=== PATIENT | male | born 1950 | race Caucasian/White ===

== ENCOUNTER 2016-10-01 11:02 | Emergency (ER) | payer OTHER ==
[2016-10-01 11:38] VITALS: BP 183/97; PULSE 93; RESP 16; TEMP 98.1; O2SAT 95
--- NOTE | 2016-10-01 11:44 | UCPHY ---
H & P Time Seen by Provider: 10/01/16 11:15 Patient Type: Established HPI/ROS: HPI Left knee pain. 65-year-old male by private vehicle. This patient reports that he was coming down a ladder last Wednesday after cleaning his gutters. He got to the bottom. He flexed his left knee and had a sudden onset burning sharp pain on the lateral aspect of the left knee just adjacent to the patella. He reports that he has had this pain once before 20 years ago. He has had multiple surgeries on the left knee secondary to chronic problems. He cannot give me further details on the surgeries. He has a chronic left knee swelling and deformity from these complications. He reports that he has had continued pain to the lateral aspect of the left knee adjacent to the patella that is made significantly worse and exacerbated by flexion of the knee past 70-80 degrees. No other injury or complaint. ROS: Constitutional: No fever, no chills. No weakness. Musculoskeletal: As above. Skin: No rashes. No lacerations or abrasions. Neurological: No focal weakness or altered sensation. Past medical history: As above. Renal failure on dialysis Wednesdays and Fridays. Social history: Here by himself. Nonsmoker. Physical Exam: General Appearance: Alert, no distress. This patient is responding to questions appropriately and in full sentences. This patient appears well- hydrated and well-nourished. Eyes: Pupils equal and round no pallor or injection. No lid edema, erythema or injection. Left knee examination: Significant for a medial aspect swelling deformity which is chronic. There does not appear to be in acute effusion. He has got some mild tenderness on palpation left lateral joint line, just inferior to the patella. No soft tissue focal swelling, erythema or warmth noted. The knee joint does range in flexion and extension. His pain comes on with flexion greater than 70-80 degrees. The knee joint is otherwise stable to valgus and varus stress testing and posterior/anterior drawer testing. The left lower extremity is neurovascularly intact. Neurological: Motor sensory function is grossly intact. Cranial nerves are normal. Skin: Warm and dry, no rashes. Psychiatric: No agitation. No depression. Database: EKG: Imaging: Left knee x-ray series: Osteopenia, marked chronic degenerative changes, osteoarthritis. No acute fracture, subluxation, dislocation identified. Interpreted by me. Procedures: Emergency department course: Vital signs reviewed. Patient is hypertensive. Vital signs are otherwise within normal limits. Patient sent for x-ray imaging of the left knee. 12:05 p.m., patient re-evaluated. Resting comfortably at this time. Results of his x-rays were discussed with him. Plan will be to place him in a knee immobilizer brace and I will refer him to Orthopedics for re-evaluation and further management. He needs a left knee replacement. He is in agreement with this plan. Follow-up and return to emergency department precautions have been discussed with him. All of his questions were answered. He was discharged from the urgent care in good condition. Differential Diagnosis: The differential diagnosis on this patient includes but is not limited to osteoarthritis of the left knee. Septic arthritis, acute fracture, subluxation , dislocation unlikely. This represents a partial list of diagnoses considered. These considerations are based on history, physical exam, past history, reassessment and diagnostic testing. Smoking Status: Never smoked Constitutional: Initial Vital Signs Temperature (C) 36.7 C 10/01/16 11:31 Heart Rate 93 10/01/16 11:31 Respiratory Rate 16 10/01/16 11:31 Blood Pressure 183/97 H 10/01/16 11:31 O2 Sat (%) 95 10/01/16 11:31 O2 Delivery Mode Room Air Allergies/Adverse Reactions: No Known Allergies Allergy (Unverified 10/01/16 11:38) Home Medications: Medication Instructions Recorded Amlodipine Besylate 10/01/16 Fosrenol 10/01/16 IBUPROFEN 10/01/16 Sensipar (*) 10/01/16 Departure - Departure Disposition: Home, Routine, Self-Care Clinical Impression: Osteoarthritis of left knee, Left knee injury Condition: Good Instructions: Swollen Knee Joint (ED), Knee Immobilizer (ED) Additional Instructions: Read and follow provided instructions. Follow-up with Orthopedics within 2-3 days for re-evaluation and further management of left knee injury. Use brace when ambulating. Weight bear to the left knee only as tolerated. Return to the emergency department for worsening pain, swelling, discoloration, fever or other serious concerns. Referrals: Judson Kinney MD [Primary Care Provider] - As per Instructions Sean Heath MD [Medical Doctor] - As per Instructions - PQRS PQRS Measurement: 134: Depression screening and followup, PRIME MD-PHQ2 (12 years and older) Over the last 2 weeks, how often have you been bothered by any of the following problems? 1. Feeling down, depressed, or hopeless? 2. Little interest or pleasure in doing things? Answered no to both questions. 130: Documentation of medications. Reviewed all patient medications, doses, route and frequency. 226: Do you smoke? No. 47: 65 and older: Advanced care planning. Patient designates surrogate decision maker as family. 51: 18 years old and older with diagnosis of COPD, spirometry performance. NA 52: 18 years old and older with COPD and symptoms of COPD or FEV1<60% predicted prescribed a B Agonist. NA
== END 2016-10-01 13:03 | disposition home or self-care (01) ==
LOC: CED 11:02
DX: M17.12 Unilateral primary osteoarthritis, left knee (principal); S89.92XA Unspecified injury of left lower leg, initial encounter; M23.42 Loose body in knee, left knee; M25.462 Effusion, left knee; X50.0XXA Overexertion from strenuous movement or load, initial encounter; Y92.019 Unspecified place in single-family (private) house as the place of occurrence of the external cause; Y93.H9 Activity, other involving exterior property and land maintenance, building and construction; N18.9 Chronic kidney disease, unspecified; Z99.2 Dependence on renal dialysis
CPT/HCPCS: 73564; G0463; 99214-PO

== ENCOUNTER 2016-12-07 20:38 | Inpatient (IN) | payer OTHER ==
--- NOTE | 2016-12-07 21:17 | EDPHY ---
H & P Stated Complaint: chest pain worsening over 72 hours; month long hx of HTN Time Seen by Provider: 12/07/16 21:14 HPI/ROS: CHIEF COMPLAINT: Chest pain HISTORY OF PRESENT ILLNESS: The patient presents to the ED with 3-4 days of episodic chest pain. Patient states his pain typically lasts an hour at a time. There is some mild radiation to his neck. The patient does endorse symptoms of occasional dyspnea. The patient does have a history of coronary artery disease. He had a stent placed approximately 8 years ago and has not had cardiac follow-up since that time. Patient does have a history of end-stage renal disease. He last received dialysis yesterday. He has been struggling with fairly difficult to control hypertension over the past several months. 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 He has had difficulty getting his systolic blood pressure below 200 by his report. The patient currently is chest pain-free. He denies exertional chest pain, pleuritic chest pain or significant weight gain. REVIEW OF SYSTEMS: A comprehensive 10 point review of systems is otherwise negative aside from elements mentioned in the history of present illness. Source: Patient - Personal History Current Tetanus/Diphtheria Vaccine: Yes - Medical/Surgical History Hx Diabetes: No Hx Cardiac Disease: Yes Hx Renal Disease: Yes Other PMH: PMHx: Kidney issues Dialysis. PSHx: stent placement, knee surgery - Social History Smoking Status: Heavy smoker - Physical Exam Exam: General Appearance: Alert male, deconditioned, no acute distress Eyes: Pupils equal and round no pallor or injection ENT, Mouth: Mucous membranes moist Respiratory: There are no retractions, lungs are clear to auscultation Cardiovascular: Regular rate and rhythm Gastrointestinal: Abdomen is soft and nontender, no masses, bowel sounds normal Neurological: A&O, normal motor function, normal sensory exam, normal cranial nerves Skin: Warm and dry, no rashes Musculoskeletal: Neck is supple nontender Extremities: symmetrical, full range of motion, dialysis fistula noted to left upper extremity Psychiatric: Patient is oriented X 3, there is no agitation Constitutional: Initial Vital Signs Temperature (C) 36.8 C 12/07/16 20:48 Heart Rate 78 12/07/16 20:48 Respiratory Rate 16 12/07/16 20:48 Blood Pressure 215/109 H 12/07/16 20:48 O2 Sat (%) 95 05/01/17 20:48 O2 Delivery Mode Room Air O2 (L/minute) 2 Allergies/Adverse Reactions: No Known Allergies Allergy (Verified 10/15/16 12:08) Home Medications: Medication Instructions Recorded Cinacalcet HCl [Sensipar (*)] 30 mg PO DAILY 12/07/16 Ibuprofen [Motrin (*)] 800 mg PO BID PRN 12/07/16 Lanthanum Carbonate [Fosrenol] 1,000 mg PO TIDMEAL 12/07/16 Lidocaine/Prilocaine [Emla Cream 1 albert TP MOWEFR PRN 12/07/16 (RX)] Lisinopril [Zestril 2.5 mg (*)] 2.5 mg PO DAILY 12/07/16 amLODIPine BESYLATE [Amlodipine 10 mg PO HS 12/07/16 Besylate] Medical Decision Making - Diagnostics EKG Interpretation: EKG: Complete interpretation has been separately recorded in the [employer] archive. Summary impression: Sinus rhythm, rate 75, no acute ischemic changes noted Imaging Results: Imaging Impressions Chest X-Ray 12/07/16 21:17 Impression: 1. Prominent interstitial markings involving the mid to lower lungs bilaterally could represent interstitial infiltrate/pneumonia versus dependent interstitial edema on top of some chronic interstitial lung disease. ED Course/Re-evaluation: The patient presents to the ED with several days of atypical chest pain. The patient does have a history of coronary artery disease. He has a slightly elevated troponin which is difficult to interpret in the setting of his end- stage renal disease. The patient did receive a 325 mg dose of aspirin. Given the patient's history of coronary artery disease in indeterminately elevated troponin I do feel he should be admitted to the hospital for observation this evening. Consultation was made with the hospitalist service who will admit the patient. The patient will be admitted to a telemetry bed this evening. The patient is stable in terms of his end-stage renal disease. He has no evidence of significant fluid overload, hyperkalemia or metabolic derangement. Differential Diagnosis: Differential diagnosis considered includes acute coronary syndrome, pericarditis , congestive heart failure, pneumonia - Data Points Laboratory Results: Laboratory Results 12/07/16 21:04 12/07/16 21:04 12/07/16 12/07/16 21:04 21:04 WBC 5.37 10^3/uL 10^3/uL (3.80-9.50) RBC 3.45 10^6/uL L 10^6/uL (4.40-6.38) Hgb 10.8 g/dL L g/dL (13.7-17.5) Hct 30.8 % L % (40.0-51.0) MCV 89.3 fL fL (81.5-99.8) MCH 31.3 pg pg (27.9-34.1) MCHC 35.1 g/dL g/dL (32.4-36.7) RDW 13.4 % % (11.5-15.2) Plt Count 157 10^3/uL 10^3/uL (150-400) MPV 8.7 fL fL (8.7-11.7) Neut % (Auto) 65.1 % % (39.3-74.2) Lymph % (Auto) 20.5 % % (15.0-45.0) [place] % (Auto) 8.6 % % (4.5-13.0) Eos % (Auto) 4.7 % % (0.6-7.6) Baso % (Auto) 0.7 % % (0.3-1.7) Nucleat RBC Rel Count 0.0 % % (0.0-0.2) Absolute Neuts (auto) 3.50 10^3/uL 10^3/uL (1.70-6.50) Absolute Lymphs (auto) 1.10 10^3/uL 10^3/uL (1.00-3.00) Absolute Monos (auto) 0.46 10^3/uL 10^3/uL (0.30-0.80) Absolute Eos (auto) 0.25 10^3/uL 10^3/uL (0.03-0.40) Absolute Basos (auto) 0.04 10^3/uL 10^3/uL (0.02-0.10) Absolute Nucleated RBC 0.00 10^3/uL 10^3/uL (0-0.01) Immature Gran % 0.4 % % (0.0-1.1) Immature Gran # 0.02 10^3/uL 10^3/uL (0.00-0.10) Sodium 137 mEq/L mEq/L (134-144) Potassium 3.9 mEq/L mEq/L (3.5-5.2) Chloride 96 mEq/L L mEq/L (97-110) Carbon Dioxide 28 mEq/l mEq/l (22-31) Anion Gap 13 mEq/L mEq/L (8-16) BUN 17 mg/dL mg/dL (7-23) Creatinine 4.1 mg/dL H mg/dL (0.7-1.3) Estimated GFR 15 Glucose 83 mg/dL mg/dL (70-100) Calcium 9.2 mg/dL mg/dL (8.5-10.4) Troponin I 0.055 ng/mL H ng/mL (0-0.034) Medications Given: Discontinued Medications Aspirin (Aspirin) 324 mg PO EDNOW ONE Stop: 12/07/16 22:06 Last Admin: 12/07/16 22:20 Dose: 324 mg Departure - Departure Disposition: [facility] Inpatient Acute Clinical Impression: Chest pain, End stage renal disease, Elevated troponin Condition: Fair
--- NOTE | 2016-12-07 21:23 | CPEKG ---
Heart Rate: 75 RR Interval: 800 P-R Interval: 212 QRSD Interval: 94 QT Interval: 456 QTC Interval: 510 P [place]: 41 QRS [place]: 3 T Wave [place]: 14 EKG Severity - ABNORMAL ECG - EKG Impression: SINUS RHYTHM EKG Impression: LOW VOLTAGE IN FRONTAL LEADS EKG Impression: PROLONGED QT INTERVAL Electronically Signed By: Robi Taylor 07-Dec-2016 22:39:51
[2016-12-07 21:25] LABS: % IMMATURE GRANULYOCYTES 0.4 % (0.0-1.1); ABSOLUTE IMMATURE GRANULOCYTES 0.02 10^3/uL (0.00-0.10); ADD DIFF? NO; ADD MORPH? NO; ADD SCAN? NO; ATYPICAL LYMPHOCYTE FLAG 0 (0-99); FRAGMENT RBC FLAG 20 (0-99); HEMATOCRIT 30.8 % (40.0-51.0); HEMOGLOBIN 10.8 g/dL (13.7-17.5); LEFT SHIFT FLG 0 (0-99); LIPEMIA HEMOLYSIS FLAG 90 (0-99); MEAN CELL HEMOGLOBIN 31.3 pg (27.9-34.1); MEAN CELL HEMOGLOBIN CONCENTR. 35.1 g/dL (32.4-36.7); MEAN CELL VOLUME 89.3 fL (81.5-99.8); MEAN PLATELET VOLUME 8.7 fL (8.7-11.7); PLATELET CLUMPS FLAG 10 (0-99); PLATELET COUNT 157 10^3/uL (150-400); RED BLOOD CELL COUNT 3.45 10^6/uL (4.40-6.38); RED CELL DISTRIBUTION WIDTH 13.4 % (11.5-15.2)
[2016-12-07 21:39] LABS: ANION GAP 13 mEq/L (8-16); CALCIUM 9.2 mg/dL (8.5-10.4); CARBON DIOXIDE 28 mEq/l (22-31); CHLORIDE 96 mEq/L (97-110); CREATININE 4.1 mg/dL (0.7-1.3); GLOMERULAR FILTRATION RATE 15; GLUCOSE 83 mg/dL (70-100); POTASSIUM 3.9 mEq/L (3.5-5.2); SODIUM 137 mEq/L (134-144)
[2016-12-07 21:50] LABS: TROPONIN I 0.055 ng/mL (0-0.034)
[2016-12-07] MEDS ORDERED: ASPIRIN 81 MG CHEWABLE TAB PO ONE (22:05)
[2016-12-07] MEDS ORDERED: hydrALAZINE 20 MG/ML VIAL IVP PRN (22:50)
[2016-12-07] MEDS ORDERED: NITROGLYCERIN 0.4 MG BTL SL PRN (22:51)
[2016-12-07] MEDS ORDERED: ALBUTEROL 3 ML DEYVIAL IH PRN (22:56)
[2016-12-07] MEDS ORDERED: ONDANSETRON DISINTEGRATING 4 MG TAB PO PRN (22:56)
[2016-12-07] MEDS ORDERED: hydrALAZINE 20 MG/ML VIAL ONE (22:56)
--- NOTE | 2016-12-07 23:43 | PDGENHP ---
History and Physical - Chief Complaint chest pain - History of Present Illness Patient is a 65 year old male with ESRD on HD MWF, HTN, CAD (previous PCI about 7 years ago), active tobacco use who presents to the ED with complaint of persistent chest pain. Patient states this pain started about 3-4 days ago, described as a dull throbbing pain, substernal, nonradiating. Pain occurs at rest and with exertion, but is worse with exertion. In addition to the pain, patient has also felt a overwhelming generalized fatigue, but denies any associated shortness of breath, palpitations, dizziness, nausea, diaphoresis. He states he had his usual full HD session earlier in the day and after returning home had a persistent 4/10 dull, achy substernal pain, which prompted him to come to the ED for further evaluation. He also reports that his blood pressure had previously been well controlled off meds until August of this year , and since that time he has been requiring increasing doses of BP meds for better control. He states he has not followed with a sports broadcaster since his PCI in 2009 and has not had a stress test since that time either. He denies any recent prolonged travel, fevers, chills, headache, dizziness, abdominal pain, n/v/d/ or dysuria. He does still make small amounts of urine. On arrival to the ED, patient was afebrile but markedly hypertensive. He reported his chest pain was about 4/10 in intensity. EKG did not show evidence of acute ischemia, CXR was unremarkable. Labs revealed mildly indeterminately elevated troponin, elevated cr, otherwise were wnl. He was given full dose aspirin and admitted to the hospitalist service for further management. History Information - Allergies/Home Medication List Allergies/Adverse Reactions: No Known Allergies Allergy (Verified 10/15/16 12:08) Home Medications: Cinacalcet HCl [Sensipar (*)] 30 mg PO DAILY 12/07/16 [Last Taken 12/07/16] Ibuprofen [Motrin (*)] 800 mg PO BID PRN 12/07/16 [Last Taken 12/07/16 07:30] Lanthanum Carbonate [Fosrenol] 1,000 mg PO TIDMEAL 12/07/16 [Last Taken 12/07/16 ] Lidocaine/Prilocaine [Emla Cream (RX)] 1 albert TP MOWEFR PRN 12/07/16 [Last Taken 12/06/16] Lisinopril [Zestril 2.5 mg (*)] 2.5 mg PO DAILY 12/07/16 [Last Taken 12/07/16] amLODIPine BESYLATE [Amlodipine Besylate] 10 mg PO HS 12/07/16 [Last Taken 12/06] I have personally reviewed and updated: family history, medical history, social history, surgical history - Past Medical History Additional medical history: 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 CAD with previous PCI in 2009. Hypertension - Surgical History Additional surgical history: LUE AV fistula. R hip replacement. 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 Review of Systems ROS: 10pt was reviewed & negative except for what was stated in HPI & below Physical Exam Temp Pulse Resp BP Pulse Ox 36.6 C 68 18 184/108 H 96 12/07/16 22:52 12/07/16 22:52 12/07/16 22:52 12/07/16 22:52 12/07/16 22:52 Constitutional: appears nourished, not in pain, chronically ill appearing Eyes: PERRL, anicteric sclera, EOMI Ears, Nose, Mouth, Throat: moist mucous membranes, hearing normal, ears appear normal, no oral mucosal ulcers Cardiovascular: regular rate and rhythym, no murmur, rub, or gallop, edema (1+ bilateral pitting edema), No JVD Peripheral Pulses: 2+: dorsalis-pedis (R), dorsalis-pedis (L) Respiratory: no respiratory distress, no rales or rhonchi, clear to auscultation Gastrointestinal: normoactive bowel sounds, soft, non-tender abdomen, no palpable masses, No guarding, No rebound Genitourinary: no bladder fullness, no bladder tenderness Skin: warm, normal color, no rashes or abrasions, no fluctuance, no induration, No mottled Musculoskeletal: full muscle strength, no muscle tenderness, normal joint ROM, no joint effusions Neurologic: AAOx3, sensation intact bilaterally, CN II-XII Intact, No weakness, No numbness, No facial droop Psychiatric: interacting appropriately, not anxious, not encephalopathic, thought process linear Lab Data & Imaging Review 12/07/16 21:04 12/07/16 21:04 WBC 5.37 10^3/uL (3.80-9.50) 12/07/16 21:04 RBC 3.45 10^6/uL (4.40-6.38) L 12/07/16 21:04 Hgb 10.8 g/dL (13.7-17.5) L 12/07/16 21:04 Hct 30.8 % (40.0-51.0) L 12/07/16 21:04 MCV 89.3 fL (81.5-99.8) 12/07/16 21:04 MCH 31.3 pg (27.9-34.1) 12/07/16 21:04 MCHC 35.1 g/dL (32.4-36.7) 12/07/16 21:04 RDW 13.4 % (11.5-15.2) 12/07/16 21:04 Plt Count 157 10^3/uL (150-400) 12/07/16 21:04 MPV 8.7 fL (8.7-11.7) 12/07/16 21:04 Neut % (Auto) 65.1 % (39.3-74.2) 12/07/16 21:04 Lymph % (Auto) 20.5 % (15.0-45.0) 12/07/16 21:04 [place] % (Auto) 8.6 % (4.5-13.0) 12/07/16 21:04 Eos % (Auto) 4.7 % (0.6-7.6) 12/07/16 21:04 Baso % (Auto) 0.7 % (0.3-1.7) 12/07/16 21:04 Nucleat RBC Rel Count 0.0 % (0.0-0.2) 12/07/16 21:04 Absolute Neuts (auto) 3.50 10^3/uL (1.70-6.50) 12/07/16 21:04 Absolute Lymphs (auto) 1.10 10^3/uL (1.00-3.00) 12/07/16 21:04 Absolute Monos (auto) 0.46 10^3/uL (0.30-0.80) 12/07/16 21:04 Absolute Eos (auto) 0.25 10^3/uL (0.03-0.40) 12/07/16 21:04 Absolute Basos (auto) 0.04 10^3/uL (0.02-0.10) 12/07/16 21:04 Absolute Nucleated RBC 0.00 10^3/uL (0-0.01) 12/07/16 21:04 Immature Gran % 0.4 % (0.0-1.1) 12/07/16 21:04 Immature Gran # 0.02 10^3/uL (0.00-0.10) 12/07/16 21:04 Sodium 137 mEq/L (134-144) 12/07/16 21:04 Potassium 3.9 mEq/L (3.5-5.2) 12/07/16 21:04 Chloride 96 mEq/L (97-110) L 12/07/16 21:04 Carbon Dioxide 28 mEq/l (22-31) 12/07/16 21:04 Anion Gap 13 mEq/L (8-16) 12/07/16 21:04 BUN 17 mg/dL (7-23) 12/07/16 21:04 Creatinine 4.1 mg/dL (0.7-1.3) H 12/07/16 21:04 Estimated GFR 15 12/07/16 21:04 Glucose 83 mg/dL (70-100) 12/07/16 21:04 Calcium 9.2 mg/dL (8.5-10.4) 12/07/16 21:04 Troponin I 0.055 ng/mL (0-0.034) H 12/07/16 21:04 Visualized and Interpreted Chest x-ray results: Yes Chest X-Ray results: other (chronic interstitial changes, with mild lower lobe edema) Visualized and Interpreted EKG results: Yes EKG additional interpertation: normal sinus rhythm, low voltage in frontal leads , no st/t wave changes; mildly prolonged QTc Assessment & Plan Assessment: Patient is a 65 year old male with known CAD, HTN, ESRD and active tobacco use who presents to the ED with complaint of 4 days of intermittent chest pain. Symptoms appear consistent with unstable angina vs NSTEMI. Plan: # acute chest pain Patient is at high risk (previous CAD, HTN, tobacco use) and his description of his symptoms appear consistent with cardiac etiology (unstable angina vs NSTEMI ) vs demand ischemia from uncontrolled hypertension. Initial EKG does not show obvious ischemic changes. Will follow serial troponins, monitor serial EKGs, check TTE. If work up is negative for acute ischemia will check stress test for further risk stratification. Full dose aspirin has been given, no indication for heparin at this time, will provide anti-anginals and BP control as need. # HTN, uncontrolled BP significantly elevated on presentation and patient states it has been difficult to control over the past 3-4 months. May be related to his renal disease, but he had full HD session earlier today and does not appear significantly volume overloaded. Will continue home med regimen, add hydralazine prn. # ESRD on HD MWF Electrolytes and cxr are largely within normal limits. Next due for HD on 12/09. Cont home meds. # anemia Likely related to his chronic renal disease, will cont to monitor. # dispo: admit to observation status for chest pain evaluation # gen: NPO DVT ppx: HSQ Full code
[2016-12-08] MEDS ORDERED: METOPROLOL TARTRATE 25 MG TAB PO ONE (00:03)
[2016-12-08] MEDS ORDERED: hydrALAZINE 20 MG/ML VIAL IVP ONE (02:38)
[2016-12-08] MEDS: HEPARIN 5,000 UNIT/0.5 ML SYR SC SCH ×3 (04:02→22:02)
[2016-12-08 04:35] LABS: % IMMATURE GRANULYOCYTES 0.2 % (0.0-1.1); ABSOLUTE IMMATURE GRANULOCYTES 0.01 10^3/uL (0.00-0.10); ADD DIFF? NO; ADD MORPH? NO; ADD SCAN? NO; ATYPICAL LYMPHOCYTE FLAG 0 (0-99); FRAGMENT RBC FLAG 30 (0-99); HEMATOCRIT 27.7 % (40.0-51.0); HEMOGLOBIN 9.8 g/dL (13.7-17.5); LEFT SHIFT FLG 0 (0-99); LIPEMIA HEMOLYSIS FLAG 90 (0-99); MEAN CELL HEMOGLOBIN 32.2 pg (27.9-34.1); MEAN CELL HEMOGLOBIN CONCENTR. 35.4 g/dL (32.4-36.7); MEAN CELL VOLUME 91.1 fL (81.5-99.8); MEAN PLATELET VOLUME 9.1 fL (8.7-11.7); PLATELET CLUMPS FLAG 10 (0-99); PLATELET COUNT 145 10^3/uL (150-400); RED BLOOD CELL COUNT 3.04 10^6/uL (4.40-6.38); RED CELL DISTRIBUTION WIDTH 13.6 % (11.5-15.2)
[2016-12-08 04:44] LABS: APTT 30.2 SEC (23.0-38.0); INR 1.23 (0.83-1.16); PROTIME(PATIENT) 15.5 SEC (12.0-15.0)
[2016-12-08 05:01] LABS: ANION GAP 11 mEq/L (8-16); CALCIUM 9.2 mg/dL (8.5-10.4); CARBON DIOXIDE 29 mEq/l (22-31); CHLORIDE 98 mEq/L (97-110); CHOLESTEROL 139 mg/dL (140-220); CHOLESTEROL/HDL RATIO 4.79 RATIO (1.00-4.97); CREATININE 4.8 mg/dL (0.7-1.3); GLOMERULAR FILTRATION RATE 12; GLUCOSE 98 mg/dL (70-100); HIGH DENSITY LIPOPROTEIN 29 mg/dL (40-65); LDL/HDL RATIO 2.86 RATIO (1.00-3.64); LOW DENSITY LIPOPROTEIN 83 mg/dL (80-100); MAGNESIUM 2.1 mg/dL (1.6-2.3); NON-HIGH DENSITY LIPOPROTEIN 110 mg/dL (90-129); SODIUM 138 mEq/L (134-144); TRIGLYCERIDE 137 mg/dL (40-150); VERY LOW DENSITY LIPOPROTEINS 27 mg/dL (8-25)
[2016-12-08 05:03] LABS: TROPONIN I 0.057 ng/mL (0-0.034)
[2016-12-08] MEDS ORDERED: LISINOPRIL 2.5 MG TAB PO SCH ×2 (09:00→12:35)
[2016-12-08] MEDS: CINACALCET HCL 30 MG TAB PO SCH (09:08)
[2016-12-08] MEDS: LANTHANUM CARBONATE 1000 MG PO SCH ×3 (09:23→17:46)
--- NOTE | 2016-12-08 09:56 | CPEKG ---
Heart Rate: 75 RR Interval: 800 P-R Interval: 200 QRSD Interval: 96 QT Interval: 460 QTC Interval: 514 P [place]: 40 QRS [place]: 17 T Wave [place]: 20 EKG Severity - ABNORMAL ECG - EKG Impression: SINUS RHYTHM EKG Impression: VENTRICULAR PREMATURE COMPLEX EKG Impression: LOW VOLTAGE IN FRONTAL LEADS EKG Impression: PROLONGED QT INTERVAL Electronically Signed By: Eloy Robin 09-Dec-2016 14:45:22
[2016-12-08] MEDS ORDERED: REGADENOSON 0.4 MG/5 ML SYR IVP ONE (09:57)
[2016-12-08] MEDS: ONDANSETRON 4 MG/2 ML VIAL IVP PRN (10:11)
--- NOTE | 2016-12-08 10:57 | ECHO ---
[id number] + + [id number] : : [place] [address] : : [phone] + + Adult Echocardiographic Report + ------+ :Name: ARGENTINA WASHINGTON JStudy Date: 12/08/2016 08:52 AM BP: 171/88 mmHg : : Hospital Admission Number: [id number] Silverioatio n: 219: :: 1950 Gender: Male Height: 70 in : :Age: 65 yrs Weight: 216 lb : :Reason For Study: CAD with PCI ESRD : : BSA: 2.2 meters 2 : + ------+ MMode/2D Measurements \T\ Calculations IVSd: 1.5 cm RVDd: 3.4 cm FS: 29.5 % Ao root diam: LVPWd: 1.0 cm LVIDd: 4.7 cm EDV(Teich): 3.6 cm LVIDs: 3.3 cm 102.1 ml ESV(Teich): 44.5 ml EF(Teich): 56.4 % LVLd ap4: 8.6 cm SV(MOD-sp4): EDV(MOD-sp4): 114.0 ml 178.0 ml LVLs ap4: 7.0 cm ESV(MOD-sp4): 64.0 ml EF(MOD-sp4): 64.0 % Normal Measurement Values: + + :LVIDd (3.5-5.7cm) IVSd (0.6-1.1cm) LVPWd (0.6-1.1cm) Aortic Root (2.0-3.7cm)Left Atrium (1.5-4.0cm): :LV Vol(d) (76-115ml) LV Vol(s) (29-48ml) Ejec Fraction (50-65%)PV Mohamud (0.6- 1.2m/s) TV Mohamud (0.4-1.0m/s) : :MV E Mohamud (0.8-1.0m/s)MV A Mohamud (0.3-1.0m/s)LVOT Mohamud (0.7-1.2m/s) Asc Ao Mohamud ( 0.9-1.8m/s) : + + Doppler Measurements \T\ Calculations MV E max mohamud: Ao V2 max: LV V1 max: PA V2 max: 79.0 cm/sec 118.1 cm/sec 100.2 cm/sec 70.6 cm/sec MV A max mohamud: Ao max P.6 mmHgLV V1 max PG: PA max P.7 cm/sec 4.0 mmHg 2.0 mmHg MV E/A: 1.2 MV dec time: 0.19 sec Left Ventricle The left ventricle is normal in size and function. There is mild concentric left ventricular hypertrophy. Ejection Fraction = 55-60%. The left ventricular ejection fraction is calculated at 56.4 %. There is Doppler evidence for diastolic dysfunction. No regional wall motion abnormalities noted. Right Ventricle The right ventricle is normal in size and function. Atria The left atrial size is normal. Right atrial size is normal. Mitral Valve Mild mitral valve tenting may be due to shortened papillary muscle. There is mild mitral regurgitation. Tricuspid Valve The tricuspid valve is normal in structure and function. There is no tricuspid stenosis. There is trace tricuspid regurgitation. Aortic Valve The aortic valve is trileaflet. The aortic valve opens well. There is no aortic stenosis. There is no aortic insufficiency. Pulmonic Valve The pulmonic valve is not well visualized. Great Vessels The aortic root is normal size. Pericardium/Pleural trivial pericardial effusion. Conclusion A two-dimensional transthoracic echocardiogram with M-mode and Doppler was performed. (1) Left ventricular systolic ejection fraction was normal (55-60%) - normal wall motion (2) Mild concentric left ventricular hypertrophy (3) Diastolic dysfunction was present (4) Normal right ventricular size and function (5) Normal atrial dimensions (6) Mild mitral regurgitation (7) Trileaflet aortic valve without sclerosis or insufficiency noted (8) Physiologic tricuspid regurgitation (9) Poor visualization of the pulmonic valve (10) No comparison echocardiograms available Final Reading Physician: Anjelica Bradshaw signed on 12/08/2016 10:55 AM Performed By: Audrey Yang
--- NOTE | 2016-12-08 11:25 | GCON ---
[f rep st] CONSULTATION NEPHROLOGY CONSULTATION DATE OF CONSULTATION: 12/08/2016 REASON FOR CONSULTATION: Management of end-stage renal disease, chest pain. HISTORY OF PRESENT ILLNESS: This is a pleasant 65-year-old with a past medical history significant for end-stage renal disease due to polycystic kidney disease, dialyzing on a Wednesday, Wednesday, ay schedule at the [facility] under the care of Dr. Chucho Maldonado. The patient has be en on dialysis for approximately 6 years due to his diagnosis of polycystic kidney disease. He pres ents now with intermittent, dull substernal chest pain. History was obtained from the patient who i s an excellent historian. The patient states that over the last 72 hours, he has had intermittent, low-level, dull chest pain. It has been substernal in nature and nonradiating. It does not occur during specific circumstance s. The patient does have a past cardiac history. He did have an [place] and PCI approximately 7 years ago. 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 The patient recently has had worsening blood pressure control. He states his blood pressure up unti l the start of the year had typically been very steady at 1:30, but since then it has been higher. In talking to him about this further, it does seem that he probably has lost some dry weight during this time. He has had increasing issues with nausea, has had decreased appetite. With this, he may have some increased fluid retention which may be stimulating his blood pressure. Otherwise, he sta garth dialysis is going okay. He denies cramping or blood pressure issues. He occasionally has fistu la issues. He does have button holes that he uses relating to this. As related to the above issues , we are asked by the primary service to assist the patient's renal diagnosis and management. PAST MEDICAL HISTORY: 1. End-stage renal disease. Related to polycystic kidney disease. 2. Hypertension. 3. Coronary artery disease. 4. Degenerative joint disease. SURGICAL HISTORY: 1. AV fistula. 2. Right hip replacement. 3. Several knee surgeries. FAMILY HISTORY: Positive for polycystic kidney disease. There is no history of cerebral aneurysms or cerebrovascular accidents. SOCIAL HISTORY: The patient does have a significant smoking history and actively smokes. He lives with his son. 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 REVIEW OF SYSTEMS: He denies fevers, chills, or sweats. He has occasional but rare headaches. He denies visual disturbances. He does have chronic rhinitis. He denies a sore throat. He has occasi onal cough. He has had the aforementioned chest pain. He denies palpitations. He denies abdominal pain. He has chronic constipation. He has had nausea. He denies dysuria. He has had some lower extremity edema. He denies numbness in the fingers or toes. He denies skin rashes. He does not fernández ve a history of diabetes or thyroid disease. PHYSICAL EXAM: GENERAL: At time of exam, the patient is appropriate and alert. VITAL SIGNS: Temp erature 36.6, pulse is 70, blood pressure 171/88. EYES: Sclerae clear. OROPHARYNX: Clear. NECK: No lymphadenopathy or thyromegaly. No jugular venous distention. LUNGS: Clear to auscultation b ilaterally. CARDIOVASCULAR: Regular rate and rhythm without gallops or rubs. ABDOMEN: Nontender. I cannot really palpate his kidneys. : Rectal deferred. EXTREMITIES: Trace ankle edema. INT EGUMENT: Generally clear. The patient's fistula site looks okay with intact buttonholes. NEURO: No focal findings. LABORATORY STUDIES: White count 4.6, hematocrit 27.7, platelet count 145. Sodium 138, potassium 4. 8, troponin 0.057. IMPRESSION AND PLAN: 1. End-stage renal disease. The patient was dialyzed on a Wednesday, Wednesday, Wednesday schedule. His current dry weight is 95.5. I believe he has some extra fluid on board. We will plan on challengi ng this while he is in the hospital. This may improve his blood pressure control. 2. Hypertension. Please see above. The patient likely has a worsening volume status, which is ondina ing his blood pressure higher which may be causing some additional cardiac stress. We will see if w e can improve his volume status and his blood pressure prior to discharge. 3. Chest pain. Please see above. The patient has a history of coronary disease and very likely fernández s hemodynamically significant vascular disease at present. He also is going to need a cardiac eyad terization. Cardiology will be seeing the patient. 4. Nausea. This may be the root of his issues. His nausea may have caused anorexia, which caused a decreased true dry weight, which also led to fluid overload, hypertension and chest pain. He will need further evaluation of this along with his constipation. 5. Tobacco. The patient does need further help with tobacco cessation management. Thank you for allowing us to participate in this gentleman's care. We will continue following close ly with you. /[id number]/MODL
--- NOTE | 2016-12-08 11:40 | CPR ---
[f rep st] NONINVASIVE CARDIAC PROCEDURE REPORT DATE OF PROCEDURE: 12/08/2016 PROCEDURE: Lexiscan nuclear stress test. ORDERING PHYSICIAN: Flor Darling MD REASON FOR TEST: 1. Chest pain. 2. Hypertension. FINDINGS: Resting EKG shows a regular sinus rhythm with a rate of 75. He has occasional PVCs noted, a prolonged QTC of 514. Resting blood pressure 185/90, oxygen saturation 95%. Heart rate 72. He is asymptomatic prior to testing. STRESS PORTION: Lexiscan was injected rapidly followed by saline flush. Cardiolite was then given followed by saline flush. He did experience shortness of breath after the injection and then nausea, vomiting. Peak blood pressure 224/115, oxygen saturation 97%, heart rate 96. Elevated blood pressure likely related to vomiting. RECOVERY: Caffeine was given in addition to Zofran for nausea. Heart rate at recovery 86, blood pressure 166/82, oxygen saturation 95%. EKG remained stable throughout the testing. He does have occasional PVCs. By termination of the procedure and recovery, he felt back to baseline with no nausea or vomiting. At this time, he currently is stable for nuclear imaging. /[id number]/MODL MTDD
[2016-12-08] MEDS ORDERED: BISACODYL 10 MG SUPP PR PRN (12:56)
[2016-12-08] MEDS ORDERED: MAGNESIUM HYDROXIDE 30 ML UDCUP PO PRN (12:56)
[2016-12-08] MEDS ORDERED: LIDOCAINE 1% 30 ML SDV ONE (14:04)
[2016-12-08] MEDS ORDERED: IOPAMIDOL (ISOVUE-370) 150 ML BTL IV ONE ×2 (14:04→14:41)
[2016-12-08] MEDS ORDERED: fentaNYL 100 MCG/2 ML INJ ONE (14:05)
[2016-12-08] MEDS ORDERED: MIDAZOLAM 2 MG/2 ML VIAL ONE (14:05)
[2016-12-08] MEDS ORDERED: BIVALIRUDIN 250 MG/5 ML VIAL IV ONE (14:05)
[2016-12-08] MEDS ORDERED: HEPARIN 10,000 UNIT/10 ML MDV ONE (14:06)
[2016-12-08] MEDS: LISINOPRIL 10 MG TAB PO SCH (14:30)
--- NOTE | 2016-12-08 15:33 | PDCARCONS ---
Cardiology Consult Reason for Consult: Concerns about critical CAD Chief Complaint: Chest pains Requesting Physician: Hospitalist/Nephrology History of Present Illness: Patient is a 65 y/o male with history of CAD s/p PCI to RCA (about 8 years ago in setting of AMI), ESRD with HD three times per week (Dr. Johnson Maldonado) due to polycystic kidney disease, and HTN, who presented to [facility] with complaints of chest discomfort. Discomfort was 'dull' in character, and only noted for about 72 hours prior to admission. Chronic degree of nausea has been noted with HD days. Uncertain if there has been "new" water weight given ongoing hemodialysis. Chest pains are new for the patient. Sharp, rapid onset chest pains have been noted for some time, but the dull ache has been the new symptom for the past several days. No PND or orthopnea. No dizziness or lightheadedness. Compliance with prescribed medical therapy has been good. Poor relationship with physicians in the past when he was followed by . No regular or routine cardiology follow up has been maintained since the PCI. Today, the patient had ongoing discomfort of about 4/10. No radiation into the shoulder, neck or jaw has been noted. Nausea has been present with the HD, and not considered by the patient to be a new symptom. Stress testing was performed with old inferolateral infarct pattern (mild periinfarct region) with associated mild hypokinesis to same territory. Low normal LVEF (51%). History Information - Allergies/Home Medication List Allergies/Adverse Reactions: No Known Allergies Allergy (Verified 10/15/16 12:08) Home Medications: Cinacalcet HCl [Sensipar (*)] 30 mg PO DAILY 12/07/16 [Last Taken 12/07/16] Ibuprofen [Motrin (*)] 800 mg PO BID PRN 12/07/16 [Last Taken 12/07/16 07:30] Lanthanum Carbonate [Fosrenol] 1,000 mg PO TIDMEAL 12/07/16 [Last Taken 12/07/16 ] Lidocaine/Prilocaine [Emla Cream (RX)] 1 albert TP MOWEFR PRN 12/07/16 [Last Taken 12/06/16] Lisinopril [Zestril 2.5 mg (*)] 2.5 mg PO DAILY 12/07/16 [Last Taken 12/07/16] amLODIPine BESYLATE [Amlodipine Besylate] 10 mg PO HS 12/07/16 [Last Taken 12/06] I have personally reviewed and updated: family history, medical history, social history, surgical history - Past Medical History coronary artery disease, ESRD, hypertension, myocardial infarction - Surgical History Additional surgical history: AV fistula - Family History Positive for: non-pertinent - Social History Smoking Status: Heavy smoker (1/2 PPD x 50 years) Alcohol Use: None Drug Use: None Cardiac History - Cardiac History Past Cardiac History: CAD, PCI Cardiac Risk Factors: hypertension (>140/90), current cigarette smoker, age > 65 , male Timing/Duration: Days Severity: moderate Severity Scale: 4 Location: substernal, central, epigastric Activities at Onset: activity Modifying Factors: improves with: lying down, oxygen, rest Associated Symptoms: chest pain MARTHA Risk Evaluation age greater or equal to 65: yes greater or equal to 3 CAD risk factors: yes known CAD(stenosis greater or eqaul to 50%): yes ASA use in past 7 days: yes severe angina(greater or equal to 2 episodes in 24hrs): no EKG ST changes greater or equal to 0.5mm: no positive cardiac marker: yes Total Score: 5 MARTHA Score: 26.2% risk Physical Exam Temp Pulse Resp BP Pulse Ox 36.7 C 76 16 169/92 H 96 12/08/16 12:00 12/08/16 12:00 12/08/16 12:00 12/08/16 12:00 12/08/16 12:00 Constitutional: no apparent distress, appears nourished, not in pain Eyes: PERRL Ears, Nose, Mouth, Throat: moist mucous membranes, hearing normal Cardiovascular: regular rate and rhythym, no murmur, rub, or gallop, No JVD Peripheral Pulses: 2+: dorsalis-pedis (R), dorsalis-pedis (L) Respiratory: no respiratory distress, no rales or rhonchi, clear to auscultation Gastrointestinal: normoactive bowel sounds Skin: warm, normal color, No rash Musculoskeletal: full muscle strength, no muscle tenderness, normal joint ROM Neurologic: AAOx3, sensation intact bilaterally, CN II-XII Intact Psychiatric: interacting appropriately, not anxious, not encephalopathic Lab and Imaging 12/08/16 03:49 12/08/16 03:49 WBC 4.60 10^3/uL (3.80-9.50) 12/08/16 03:49 RBC 3.04 10^6/uL (4.40-6.38) L 12/08/16 03:49 Hgb 9.8 g/dL (13.7-17.5) L 12/08/16 03:49 Hct 27.7 % (40.0-51.0) L 12/08/16 03:49 MCV 91.1 fL (81.5-99.8) 12/08/16 03:49 MCH 32.2 pg (27.9-34.1) 12/08/16 03:49 MCHC 35.4 g/dL (32.4-36.7) 12/08/16 03:49 RDW 13.6 % (11.5-15.2) 12/08/16 03:49 Plt Count 145 10^3/uL (150-400) L 12/08/16 03:49 MPV 9.1 fL (8.7-11.7) 12/08/16 03:49 Neut % (Auto) 59.7 % (39.3-74.2) 12/08/16 03:49 Lymph % (Auto) 23.5 % (15.0-45.0) 12/08/16 03:49 [place] % (Auto) 9.6 % (4.5-13.0) 12/08/16 03:49 Eos % (Auto) 5.9 % (0.6-7.6) 12/08/16 03:49 Baso % (Auto) 1.1 % (0.3-1.7) 12/08/16 03:49 Nucleat RBC Rel Count 0.0 % (0.0-0.2) 12/08/16 03:49 Absolute Neuts (auto) 2.75 10^3/uL (1.70-6.50) 12/08/16 03:49 Absolute Lymphs (auto) 1.08 10^3/uL (1.00-3.00) 12/08/16 03:49 Absolute Monos (auto) 0.44 10^3/uL (0.30-0.80) 12/08/16 03:49 Absolute Eos (auto) 0.27 10^3/uL (0.03-0.40) 12/08/16 03:49 Absolute Basos (auto) 0.05 10^3/uL (0.02-0.10) 12/08/16 03:49 Absolute Nucleated RBC 0.00 10^3/uL (0-0.01) 12/08/16 03:49 Immature Gran % 0.2 % (0.0-1.1) 12/08/16 03:49 Immature Gran # 0.01 10^3/uL (0.00-0.10) 12/08/16 03:49 PT 15.5 SEC (12.0-15.0) H 12/08/16 03:49 INR 1.23 (0.83-1.16) H 12/08/16 03:49 APTT 30.2 SEC (23.0-38.0) 12/08/16 03:49 Sodium 138 mEq/L (134-144) 12/08/16 03:49 Potassium 4.0 mEq/L (3.5-5.2) 12/08/16 03:49 Chloride 98 mEq/L (97-110) 12/08/16 03:49 Carbon Dioxide 29 mEq/l (22-31) 12/08/16 03:49 Anion Gap 11 mEq/L (8-16) 12/08/16 03:49 BUN 21 mg/dL (7-23) 12/08/16 03:49 Creatinine 4.8 mg/dL (0.7-1.3) H 12/08/16 03:49 Estimated GFR 12 12/08/16 03:49 Glucose 98 mg/dL (70-100) 12/08/16 03:49 Calcium 9.2 mg/dL (8.5-10.4) 12/08/16 03:49 Phosphorus 3.8 mg/dL (2.5-4.5) 12/08/16 03:49 Magnesium 2.1 mg/dL (1.6-2.3) 12/08/16 03:49 Creatine Kinase 85 IU/L (0-224) 12/08/16 03:49 Troponin I 0.057 ng/mL (0-0.034) H 12/08/16 03:49 Triglycerides 137 mg/dL (40-150) 12/08/16 03:49 Cholesterol 139 mg/dL (140-220) L 12/08/16 03:49 Cholesterol Risk Factr 1.0 (0.2-1.0) 12/08/16 03:49 LDL Cholesterol, Calc 83 mg/dL (80-100) 12/08/16 03:49 LDL Risk Factor 1.0 (0.2-1.0) 12/08/16 03:49 VLDL Cholesterol 27 mg/dL (8-25) H 12/08/16 03:49 Non-HDL Cholesterol 110 mg/dL (90-129) 12/08/16 03:49 HDL Cholesterol 29 mg/dL (40-65) L 12/08/16 03:49 LDL/HDL Ratio 2.86 RATIO (1.00-3.64) 12/08/16 03:49 Cholesterol/HDL Ratio 4.79 RATIO (1.00-4.97) 12/08/16 03:49 TSH 2.970 uIU/mL (0.465-4.680) 12/08/16 03:49 Chest X-ray Interpretation: infiltrate (possible infiltrate) Visualized and Interpreted imaging results: Yes Interpretation: subtle abnormality to the MPI with old MA and low normal LVEF. Visualized and Interpreted EKG results: Yes EKG Interpretation: Positive for: normal sinsus rhythm EKG additional interpertation: non specific ST/T wave changes noted. Minimal QTc prolongation. Telemetry: normal sinus rhythm A/P Assessment: 65 y/o male with known CAD s/p PCI in setting of AMI several years ago (patient uncertain on the location of the stent, but known to the RCA lesion), HTN, and ESRD with HD three times per week, with new complaints of a "dull chest pain". No symptoms like this with the AMI of the past. ECG with non specific ECG changes noted. Stress testing with old MA and low normal LVEF. Nephrology with concerns about the history and the symptoms, with desire for invasive angiography. Risks and benefits of this procedure were discussed with the patient. Plan: Recommendations for angiography today. Would continue HD schedule (for tomorrow ). Further recommendations to be documented at the conclusion of the angiogram. Review of Systems - Review of Systems Constitutional: see HPI EENTM: no symptoms reported Respiratory: no symptoms reported Cardiac: chest pain Gastrointestinal/Abdominal: no symptoms reported Genitourinary: no symptoms Musculoskelatal: muscle pain Skin: no symptoms Neurological: no symptoms Hematologic/Lymphatic: no symptoms reported Immunologic/allergic: no symptoms reported All Other Systems: Reviewed and Negative
[2016-12-08] MEDS ORDERED: ATROPINE SULFATE 1 MG/10 ML SYR IVP PRN (15:42)
[2016-12-08] MEDS ORDERED: ONDANSETRON 4 MG/2 ML VIAL IVP PRN (15:42)
[2016-12-08] MEDS ORDERED: OXYCODONE/APAP 5/325 TAB PO PRN (15:42)
[2016-12-08] MEDS ORDERED: NITROGLYCERIN 0.4 MG BTL SL PRN (15:42)
--- NOTE | 2016-12-08 15:50 | PDDXCAT ---
Diagnostic Cath Note - . Date: 12/08/16 Food Service Manager: Lobito Indication: CCC Class III and IV angina on medical treatment - Procedure Access: right groin Procedure: left heart catheterization, coronary angiography, left ventriculogram - Materials Left Heart Cath size: 6F Left Heart Cath materials: standard multipack (JL4, JR4, pigtail) - Findings-Left Heart Catheterization LM: Grossly normal vessel with bifurcation into the LAD and LCX vessels LAD: Medium sized vessel with diffuse moderate to severe disease with 60% lesion noted proximally. At bifurcation to principal diag there is diffuse disease. In mid LAD, 80%, eccentric lesion noted. Left to right collaterals noted to the PDA. LCX: Medium sized vessel, also with diffuse disease. Ostium of principal OM with 80%+ lesion. Moderate atherosclerosis to the mid vessel (60%+). Left to right collaterals noted from LCX system to the PDA RCA: Dominant vessel with PDA. Ostium of PDA with critical lesion (80%) and ostium of the KELI (80% lesion). Mid RCA with 70% stenosis noted. EDP: 23 mm Hg LVEF: 55-60% Wall motion: Normal wall motion Complications: None Estimated blood loss: <50ml Closure method: Angioseal Assessment: 65 y/o male with CAD s/p PCI to the RCA in the past with ESRD s/p HD three times per week with HTN, who presents to [facility] with complaints of chest pains (dullness). Stress testing with subtle abnormality and "low normal" LVEF. Recommendations given history for angiogram. Angiogram with diffuse disease and critical lesoins to the distal RCA (PDA/KELI), mid LAD and ostium of the OM1 (principal). Normal LVEF noted. Plan: Dr. Madison Neil to discuss CABG option. Intervention: none Patient Problems: Problems Problem Status Onset Chest pain Acute Elevated troponin Acute End stage renal disease Acute
[2016-12-08] MEDS: SENNOSIDES/DOCUSATE SODIUM TAB PO SCH (20:06)
[2016-12-08] MEDS: HYDROCODONE/APAP 5/325 TAB PO PRN (20:07)
--- NOTE | 2016-12-08 20:09 | HOSPPROG ---
Hospitalist Progress Note Assessment/Plan: * Chest pain -stress test with mild renetta-infarct ischemia but high risk/good history -cardiology consulted - d/w Dr. Robin -cardiac cath - multi-vessel disease -Dr. Hernandes consulted for possible CABG * ESRD due to PCKD -d/w Dr. Hills * N/V daily with unintentional weight loss -check KUB -constipation may be contributing * HTN - uncontrolled -increase lisinopril -prn IV hydralazine pending CABG, add metoprolol * Tobacco dependence * Hyperlipidemia -add Lipitor Subjective: No more cp Objective: Vital Signs Temp Pulse Resp BP Pulse Ox 36.8 C 85 18 182/91 H 94 12/08/16 20:00 12/08/16 20:02 12/08/16 20:00 12/08/16 20:02 12/08/16 20:00 12/07/16 12/08/16 12/09/16 05:59 05:59 05:59 Intake Total 500 Output Total 600 Balance -100 PT 15.5 SEC (12.0-15.0) H 12/08/16 03:49 INR 1.23 (0.83-1.16) H 12/08/16 03:49 NUCLEAR STRESS TEST - RENETTA-INFARCT ISCHEMIA Laboratory Tests 12/07/16 12/08/16 21:04 03:49 Troponin I 0.055 H 0.057 H LDL Cholesterol, Calc 83 - Physical Exam Constitutional: no apparent distress, appears nourished, not in pain Cardiovascular: regular rate and rhythym, no murmur, rub, or gallop Respiratory: no respiratory distress, no rales or rhonchi, clear to auscultation Gastrointestinal: normoactive bowel sounds, soft, non-tender abdomen, no palpable masses Skin: no rashes or abrasions, no fluctuance, no induration Neurologic: AAOx3, sensation intact bilaterally Psychiatric: interacting appropriately, not anxious, not encephalopathic, thought process linear ICD10 Worksheet Patient Problems: Problems Problem Status Onset Chest pain Acute Elevated troponin Acute End stage renal disease Acute
[2016-12-08] MEDS ORDERED: METOPROLOL TARTRATE 5 MG/5 ML INJ IVP PRN (20:13)
[2016-12-08] MEDS: LACTULOSE 20 GM/30 ML UDCUP PO PRN (22:04)
--- NOTE | 2016-12-09 03:57 | GCON ---
[f rep st] CONSULTATION REFERRING PHYSICIAN: Eloy Robin MD REASON FOR CONSULTATION: The request of Dr. Robin with the patient's permission. IMPRESSION: 1. Unstable angina pectoris with 3 vessel disease. 2. History of previous stenting. 3. Chronic obstructive pulmonary disease secondary to chronic ongoing cigarette abuse. 4. Chronic renal failure, on dialysis 3 times a week secondary to polycystic kidney disease. 5. Hypertension. 6. History of noncompliance. RECOMMENDATION: This gentleman should undergo coronary artery revascularization on this admission b ecause of presentation with unstable angina and coronary anatomy. He is scheduled for dialysis jez rr. We will tentatively plan on surgery Wednesday afternoon, sooner if necessary. Risks and complic ations were reviewed at length with the patient and his son. I will communicate with his by mak lockett in the morning at his request. She is unable to be present due to health issues. CHIEF COMPLAINT: This is a 65-year-old gentleman, who presented with chest discomfort, 11/16. 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 He did have previous stenting due to a myocardial infarction. He is under the care of Dr. Maldonado in [place] for his polycystic kidney dis ease and unstable angina. PREVIOUS MEDICAL HISTORY: As stated. SURGERIES: Include AV fistula, right hip replacement, and several knee surgeries. FAMILY HISTORY: Positive for polycystic kidney disease. SOCIAL HISTORY: He smokes one-half to 1 pack a day for greater than 50 years. REVIEW OF SYSTEMS: Reviewed at length and no additional complaints at the present time. He is curr ently symptom free. PHYSICAL EXAMINATION: GENERAL: This is a moderately overweight, middle-aged gentleman, quite pleas ant, in no apparent distress. Blood pressure 182/89, pulse 120, respirations 16, O2 saturation 96.7 on room air. HEENT: Normocephalic. PERRLA. EOMI. NECK: Without bruits. HEART: Rate is regul ar. LUNGS: Clear. ABDOMEN: Soft, nontender. Bowel sounds are positive. RECTAL: Deferred. GEN ITAL: Deferred. NEUROLOGIC: He is grossly intact. He does have a palpable thrill in the left upp er arm consistent with a patent fistula. Cath films were reviewed. Please see cath report for details. /[id number]/MODL
[2016-12-09] MEDS: HEPARIN 5,000 UNIT/0.5 ML SYR SC SCH ×2 (04:53→16:04)
[2016-12-09] MEDS: HYDROCODONE/APAP 5/325 TAB PO PRN ×2 (04:55→22:38)
[2016-12-09 05:48] LABS: ALANINE AMINOTRANSFERASE 23 IU/L (21-72); ALBUMIN 3.4 g/dL (3.5-5.0); ALKALINE PHOSPHATASE 46 IU/L (38-126); ANION GAP 12 mEq/L (8-16); ASPARTATE AMINOTRANSFERASE 12 IU/L (17-59); BILIRUBIN,TOTAL 0.7 mg/dL (0.1-1.4); BILIRUBIN-CONJUGATED 0.6 mg/dL (0.0-0.5); BILIRUBIN-UNCONJUGATED 0.1 mg/dL (0.0-1.1); CALCIUM 9.1 mg/dL (8.5-10.4); CARBON DIOXIDE 25 mEq/l (22-31); CHLORIDE 99 mEq/L (97-110); GLOMERULAR FILTRATION RATE 8; GLUCOSE 83 mg/dL (70-100); POTASSIUM 4.5 mEq/L (3.5-5.2); SODIUM 136 mEq/L (134-144); TOTAL PROTEIN 6.2 g/dL (6.3-8.2)
[2016-12-09 06:06] LABS: % IMMATURE GRANULYOCYTES 0.2 % (0.0-1.1); ABSOLUTE IMMATURE GRANULOCYTES 0.01 10^3/uL (0.00-0.10); ADD DIFF? NO; ADD MORPH? NO; ADD SCAN? NO; ATYPICAL LYMPHOCYTE FLAG 0 (0-99); FRAGMENT RBC FLAG 0 (0-99); HEMATOCRIT 27.1 % (40.0-51.0); HEMOGLOBIN 9.6 g/dL (13.7-17.5); LEFT SHIFT FLG 0 (0-99); LIPEMIA HEMOLYSIS FLAG 90 (0-99); MEAN CELL HEMOGLOBIN 32.8 pg (27.9-34.1); MEAN CELL HEMOGLOBIN CONCENTR. 35.4 g/dL (32.4-36.7); MEAN CELL VOLUME 92.5 fL (81.5-99.8); MEAN PLATELET VOLUME 9.2 fL (8.7-11.7); PLATELET CLUMPS FLAG 0 (0-99); PLATELET COUNT 100 10^3/uL (150-400); RED BLOOD CELL COUNT 2.93 10^6/uL (4.40-6.38); RED CELL DISTRIBUTION WIDTH 13.7 % (11.5-15.2)
--- NOTE | 2016-12-09 10:03 | PDCARPN ---
Cardiology Progress Note Chief Complaint: No complaints today Assessment/Plan: Assessment: 12-09-16 Good sleep overnight. Discussion last night from cardiology (myself) and CT surgery (Dr. Madison Hernandes). Plan for CABG on Wednesday. Dialysis is scheduled for today. No pain or discomfort to the cath site has been noted. Patient understands the recommendations. He did voice desire to go home, if possible, prior to the CABG surgery. Given the pains voiced yesterday (pre cath), cardiology had wanted the patient to stay in house. No pains have been reported last night/today. 12-08-16 Patient is a 65 y/o male with history of CAD s/p PCI to RCA (about 8 years ago in setting of AMI), ESRD with HD three times per week (Dr. Johnson Maldonado) due to polycystic kidney disease, and HTN, who presented to [facility] with complaints of chest discomfort. Discomfort was 'dull' in character, and only noted for about 72 hours prior to admission. Chronic degree of nausea has been noted with HD days. Uncertain if there has been "new" water weight given ongoing hemodialysis. Chest pains are new for the patient. Sharp, rapid onset chest pains have been noted for some time, but the dull ache has been the new symptom for the past several days. No PND or orthopnea. No dizziness or lightheadedness. Compliance with prescribed medical therapy has been good. Poor relationship with physicians in the past when he was followed by . No regular or routine cardiology follow up has been maintained since the PCI. Plan: (1) HD today at 1300 (2) Plans for CABG on Wednesday (3) Would maintain therapy on norvasc, metoprolol, and lisinopril for HTN ( better control has been noted today) (4) Statins should continue with HLP history (5) Discussion with CTS about desire to go home until surgery Wednesday. Subjective: No voiced concerns or complaints. No chest pains currently noted. Reviewed/Discussed With: multidisciplinary team Time Spent With Patient: 15 minutes Objective: Vital Signs (8 Hrs) Temp Pulse Resp BP Pulse Ox 12/09/16 07:28 36.4 C 79 18 135/75 H 98 12/09/16 04:00 36.4 C 87 16 162/83 H 99 Intake/Output (24 Hrs) 12/08/16 12/09/1617 05:59 05:59 05:59 Intake Total 700 Output Total 600 Balance 100 Intake: Oral (ml) 700 Output: Urine (ml) 600 Toilet 600 Other: Weight 92.1 kg Intake Quantity Yes Sufficient Number of Voids Toilet 2 Result Diagrams: 12/09/16 04:58 12/09/16 04:58 Cardiac Labs: Laboratory Tests 12/07/16 12/08/16 12/09/16 21:04 03:49 04:58 Creatinine 7.0 H Phosphorus 5.6 H D Troponin I 0.055 H 0.057 H Total Protein 6.2 L Albumin 3.4 L Telemetry: normal sinus rhythm - Physical Exam Constitutional: WDWN, healthy appearing, no apparent distress Eyes: PERRL, EOMI Ears, Nose, Mouth, Throat: moist mucous membranes Cardiovascular: regular rate and rhythm, no murmurs, no rubs, no gallops Peripheral Pulses: 2+: dorsalis-pedis (R), dorsalis-pedis (L) Respiratory: clear to auscultate bilat, no crackles, no wheezes Gastrointestinal: normoactive bowel sounds, no tenderness Skin: no rashes, no edema Musculoskeletal: no muscular tenderness Neurologic: AAOx3, CN II-XII grossly intact Psychiatric: cooperative, interactive, following commands, not anxious ICD10 Worksheet Patient Problems: Problems Problem Status Onset Chest pain Acute Elevated troponin Acute End stage renal disease Acute
[2016-12-09] MEDS: CINACALCET HCL 30 MG TAB PO SCH (10:17)
[2016-12-09] MEDS: ATORVASTATIN CALCIUM 40 MG TAB PO SCH (10:17)
[2016-12-09] MEDS: LANTHANUM CARBONATE 1000 MG PO SCH ×3 (10:17→18:17)
[2016-12-09] MEDS: SENNOSIDES/DOCUSATE SODIUM TAB PO SCH ×2 (10:20→22:37)
[2016-12-09] MEDS: LIDOCAINE/PRILOCAINE 1 EACH CRTUBE TP PRN (11:08)
--- NOTE | 2016-12-09 14:52 | SOAPPROG ---
POLLO Progress Note Assessment/Plan: Assessment: 1. ESRD. HD on MWF schedule. Dr. Hernandes has requested intraoperative HD Wednesday. Will need to look into logistics of this and coordinate. Since unable to run successfully today with AVF infiltration will need to run tomorrow. 2. AVF. Superficial. Uses short needles at outpatient HD. Will request these for next run. Will avoid using his buttonholes inpatients. These have been difficult even with cannulators that know him as an outpatient. 3. CAD. 3V, for CABG Wednesday. Plan: 12/09/16 14:50 12/09/16 15:00 Subjective: Patient seen and examined on dialysis. Having problems with increased venous pressures. Venous needle became dislodged and pt infiltrated during HD requiring wasting of blood in circuit. Objective: Vital Signs Temp Pulse Resp BP Pulse Ox 36.9 C 84 18 136/76 H 93 12/09/16 11:28 12/09/16 11:28 12/09/16 11:28 12/09/16 11:28 12/09/16 11:28 Laboratory Results 12/09/16 04:58 12/09/16 04:58 12/08/16 12/09/16 12/10/16 05:59 05:59 05:59 Intake Total 700 Output Total 600 Balance 100 PT 15.5 SEC (12.0-15.0) H 12/08/16 03:49 INR 1.23 (0.83-1.16) H 12/08/16 03:49 On dialysis. Infiltrated and needle came out during my exam RRR, no m/g/r CTAB Abdom soft, nt No edema ICD10 Worksheet Patient Problems: Problems Problem Status Onset Chest pain Acute End stage renal disease Acute Elevated troponin Acute
--- NOTE | 2016-12-09 15:32 | HOSPPROG ---
Hospitalist Progress Note Assessment/Plan: Assessment: 65-year-old male presents with acute chest pain in the setting of multivessel disease requiring CABG Plan: 1. Chest pain. Acute, secondary to obstructive coronary disease, currently chest pain-free - if recurrent chest pain, give sublingual nitroglycerin and treat as unstable angina 2. Coronary artery disease. Multivessel disease on cardiac catheterization, patient is scheduled for CABG on 12/11 - discussed with Dr. Hernandes, CT surgery will assume primary care following surgery - added statin 3. ESRD due to PCKD. D/w Dr. Kirk, patient w/ bleeding event during HD today , currently stabilized w/ applying pressure 4. Nausea and vomiting. Acute, occurring s/p HD, likely 2/2 fluid shifts - more aggressive control of constipation - PRN zofran - can consider scheduled reglan if he is not moving bowels by tomorrow 5. HTN. Chronic, cont ACEi, added bblocker today Diet. Renal PPx. High risk, hold hep SC given bleeding, SCDs Code. Full Dispo. ADD uncertain, pending CABG Subjective: Patient reports that his nausea and vomiting is spontaneous and difficult to predict Objective: Vital Signs Temp Pulse Resp BP Pulse Ox 36.9 C 84 18 136/76 H 93 12/09/16 11:28 12/09/16 11:28 12/09/16 11:28 12/09/16 11:28 12/09/16 11:28 Laboratory Results 12/09/16 04:58 12/09/16 04:58 12/08/16 12/09/16 12/10/16 05:59 05:59 05:59 Intake Total 700 Output Total 600 Balance 100 PT 15.5 SEC (12.0-15.0) H 12/08/16 03:49 INR 1.23 (0.83-1.16) H 12/08/16 03:49 - Physical Exam Constitutional: no apparent distress, appears nourished, not in pain Cardiovascular: regular rate and rhythym, systolic murmur (Wound systolic at sternum), No tachycardia, No edema Respiratory: no respiratory distress, no rales or rhonchi, clear to auscultation Gastrointestinal: normoactive bowel sounds, soft, non-tender abdomen, no palpable masses Skin: warm, normal color, other (Mild bleeding left antecubital fossa, no surrounding erythema or induration) Neurologic: AAOx3, No facial droop Psychiatric: interacting appropriately, not anxious, not encephalopathic, thought process linear ICD10 Worksheet Patient Problems: Problems Problem Status Onset Chest pain Acute End stage renal disease Acute Elevated troponin Acute
[2016-12-09] MEDS ORDERED: METOCLOPRAMIDE 10 MG TAB PO PRN (15:48)
[2016-12-09] MEDS ORDERED: METOCLOPRAMIDE 10 MG/2 ML VIAL IVP PRN (15:48)
[2016-12-09] MEDS: ONDANSETRON 4 MG/2 ML VIAL IVP PRN (15:49)
[2016-12-09] MEDS: LISINOPRIL 10 MG TAB PO SCH (16:30)
[2016-12-09] MEDS: POLYETHYLENE GLYCOL 3350 17 GM PKT PO PRN (16:30)
[2016-12-09] MEDS: METOPROLOL TARTRATE 25 MG TAB PO SCH ×2 (16:33→22:36)
[2016-12-09] MEDS ORDERED: LIDOCAINE/PRILOCAINE 1 EACH CRTUBE TP ONE (17:00)
[2016-12-09] MEDS: LACTULOSE 20 GM/30 ML UDCUP PO PRN (22:35)
[2016-12-10 05:43] LABS: % IMMATURE GRANULYOCYTES 0.2 % (0.0-1.1); ABSOLUTE IMMATURE GRANULOCYTES 0.01 10^3/uL (0.00-0.10); ADD DIFF? NO; ADD MORPH? NO; ADD SCAN? NO; ATYPICAL LYMPHOCYTE FLAG 0 (0-99); FRAGMENT RBC FLAG 0 (0-99); HEMATOCRIT 24.8 % (40.0-51.0); HEMOGLOBIN 8.5 g/dL (13.7-17.5); LEFT SHIFT FLG 0 (0-99); LIPEMIA HEMOLYSIS FLAG 90 (0-99); MEAN CELL HEMOGLOBIN 31.7 pg (27.9-34.1); MEAN CELL HEMOGLOBIN CONCENTR. 34.3 g/dL (32.4-36.7); MEAN CELL VOLUME 92.5 fL (81.5-99.8); MEAN PLATELET VOLUME 9.2 fL (8.7-11.7); PLATELET CLUMPS FLAG 0 (0-99); PLATELET COUNT 102 10^3/uL (150-400); RED BLOOD CELL COUNT 2.68 10^6/uL (4.40-6.38); RED CELL DISTRIBUTION WIDTH 13.7 % (11.5-15.2)
[2016-12-10] MEDS: LIDOCAINE/PRILOCAINE 1 EACH CRTUBE TP PRN (06:15)
[2016-12-10 06:23] LABS: ALBUMIN 3.5 g/dL (3.5-5.0); ANION GAP 14 mEq/L (8-16); CALCIUM 8.7 mg/dL (8.5-10.4); CARBON DIOXIDE 27 mEq/l (22-31); CHLORIDE 98 mEq/L (97-110); GLOMERULAR FILTRATION RATE 6; GLUCOSE 80 mg/dL (70-100); POTASSIUM 4.7 mEq/L (3.5-5.2); SODIUM 139 mEq/L (134-144)
[2016-12-10 06:35] LABS: CREATININE 8.6 mg/dL (0.7-1.3)
[2016-12-10] MEDS: LANTHANUM CARBONATE 1000 MG PO SCH ×3 (09:22→21:12)
[2016-12-10] MEDS: ATORVASTATIN CALCIUM 40 MG TAB PO SCH (09:23)
[2016-12-10] MEDS: CINACALCET HCL 30 MG TAB PO SCH (09:23)
[2016-12-10] MEDS: METOPROLOL TARTRATE 25 MG TAB PO SCH ×2 (09:23→21:10)
[2016-12-10] MEDS: LISINOPRIL 10 MG TAB PO SCH (09:23)
[2016-12-10] MEDS: SENNOSIDES/DOCUSATE SODIUM TAB PO SCH ×2 (09:23→21:11)
--- NOTE | 2016-12-10 10:17 | SOAPPROG ---
POLLO Progress Note Assessment/Plan: Assessment:Plan: ESRD-plan for dialysis today -access issues discussed in detail with patient, drum straightener and floor RN -next hd on Wednesday -normally MWF at [facility] with Dr. Maldonado [phone] Access-buttonholes -lower site has been easy to access -upper site has tortuous track, which is inconsistent to obtaining effective access with buttonhole needles -patient does not use standard 1 inch needles, but uses either 3/5 or 3/4 inch blunt needles both upper and lower at the dialysis unit -the patient is agreeable to using short (3/4 inch) sharp needles and sticking away from buttonhole tracks -I think this is appropriate, especially since it sounds like he would benefit from establishing a new upper buttonhole CV-per Dr. Hernandes -Cardiology notes state CABG on Wednesday -my understanding is that intraop hemodialysis requested -this runs off the cardiac bypass circuit, so his AVF issues will not complicate this procedure Anemia-EPO ordered 12/10/16 10:18 Subjective: stable overnite Objective: Vital Signs Temp Pulse Resp BP Pulse Ox 36.8 C 78 13 160/99 H 96 12/10/16 08:55 12/10/16 08:55 12/10/16 08:55 12/10/16 08:55 12/10/16 08:55 Laboratory Results 12/10/16 04:38 12/10/16 04:38 12/09/16 12/10/16 12/11/16 05:59 05:59 05:59 Intake Total 700 540 Output Total 600 Balance 100 540 PT 15.5 SEC (12.0-15.0) H 12/08/16 03:49 INR 1.23 (0.83-1.16) H 12/08/16 03:49 Physical Exam - Physical Exam General Appearance: WD/WN, alert, no apparent distress EENT: normal ENT inspection Neck: normal inspection Respiratory: lungs clear, normal breath sounds, No respiratory distress Cardiac/Chest: regular rate, rhythm, systolic murmur Abdomen: normal bowel sounds, non-tender, soft Extremities: other (upper venous site deviates medially after first 3/4 of an inch and drops deeper at this same juncture), No swelling ICD10 Worksheet Patient Problems: Problems Problem Status Onset Chest pain Acute Elevated troponin Acute End stage renal disease Acute
[2016-12-10] MEDS: EPOETIN ALFA 10,000 UNIT/ML VIAL SC SCH (10:56)
--- NOTE | 2016-12-10 11:15 | PDCARPN ---
Cardiology Progress Note Chief Complaint: No voiced cardiovascular complaints. Assessment/Plan: Assessment: 12-10-16 Good sleep overnight and bowel movement. Ongoing dialysis at present. There were issues noted yesterday with access, and dialysis was not performed. No chest pains or pressure. No PND or orthopnea. Patient still wanting to go home , but this is against medical advice. Patient is scheduled for CABG tomorrow. 12-09-16 Good sleep overnight. Discussion last night from cardiology (myself) and CT surgery (Dr. Madison Hernandes). Plan for CABG on Wednesday. Dialysis is scheduled for today. No pain or discomfort to the cath site has been noted. Patient understands the recommendations. He did voice desire to go home, if possible, prior to the CABG surgery. Given the pains voiced yesterday (pre cath), cardiology had wanted the patient to stay in house. No pains have been reported last night/today. 12-08-16 Patient is a 65 y/o male with history of CAD s/p PCI to RCA (about 8 years ago in setting of AMI), ESRD with HD three times per week (Dr. Johnson Maldonado) due to polycystic kidney disease, and HTN, who presented to [facility] with complaints of chest discomfort. Discomfort was 'dull' in character, and only noted for about 72 hours prior to admission. Chronic degree of nausea has been noted with HD days. Uncertain if there has been "new" water weight given ongoing hemodialysis. Chest pains are new for the patient. Sharp, rapid onset chest pains have been noted for some time, but the dull ache has been the new symptom for the past several days. No PND or orthopnea. No dizziness or lightheadedness. Compliance with prescribed medical therapy has been good. Poor relationship with physicians in the past when he was followed by . No regular or routine cardiology follow up has been maintained since the PCI. Plan: (1) HD today (yesterday was not successful) (2) CABG tomorrow (3) Norvasc, metoprolol, and Lisinopril to continue for HTN control assistance (4) Statins for HLP Subjective: No cardiovascular complaints at present Reviewed/Discussed With: multidisciplinary team Time Spent With Patient: 15 minutes Objective: Vital Signs (8 Hrs) Temp Pulse Resp BP Pulse Ox 12/10/16 08:55 36.8 C 78 13 160/99 H 96 12/10/16 04:00 70 156/72 H 95 Intake/Output (24 Hrs) 12/09/16 12/10/16 12/11/16 05:59 05:59 05:59 Intake Total 700 540 Output Total 600 Balance 100 540 Intake: Oral (ml) 700 540 Output: Urine (ml) 600 Toilet 600 Other: Weight 92.1 kg 91.8 kg Intake Quantity Yes Sufficient Number of Voids Toilet 2 2 Number of Stools Toilet 1 Number of Emesis 1 Occurrences Result Diagrams: 12/10/16 04:38 12/10/16 04:38 Telemetry: normal sinus rhythm - Physical Exam Constitutional: WDWN, healthy appearing, no apparent distress Eyes: PERRL, EOMI Ears, Nose, Mouth, Throat: moist mucous membranes Cardiovascular: regular rate and rhythm, no murmurs, no rubs, no gallops Peripheral Pulses: 2+: dorsalis-pedis (R), dorsalis-pedis (L) Respiratory: clear to auscultate bilat, no crackles, no wheezes Gastrointestinal: normoactive bowel sounds Skin: no rashes, no edema Musculoskeletal: no muscular tenderness Neurologic: AAOx3, CN II-XII grossly intact Psychiatric: cooperative, interactive, following commands ICD10 Worksheet Patient Problems: Problems Problem Status Onset Chest pain Acute Elevated troponin Acute End stage renal disease Acute
--- NOTE | 2016-12-10 11:50 | SOAPPROG ---
POLLO Progress Note Assessment/Plan: Assessment:Plan: Stable on Hd Difficult access even with using two short sharps WIll try to get the short buttonhole needles for his next treatment Treatment during CABG uses the bypass machine to access the blood, so treatment tomorrow should not be an issue in this regard 12/10/16 11:49 Objective: Vital Signs Temp Pulse Resp BP Pulse Ox 36.8 C 78 13 160/99 H 96 12/10/16 08:55 12/10/16 08:55 12/10/16 08:55 12/10/16 08:55 12/10/16 08:55 Laboratory Results 12/10/16 04:38 12/10/16 04:38 12/09/16 12/10/16 12/11/16 05:59 05:59 05:59 Intake Total 700 540 Output Total 600 Balance 100 540 PT 15.5 SEC (12.0-15.0) H 12/08/16 03:49 INR 1.23 (0.83-1.16) H 12/08/16 03:49 ICD10 Worksheet Patient Problems: Problems Problem Status Onset Chest pain Acute Elevated troponin Acute End stage renal disease Acute
[2016-12-10] MEDS: HEPARIN 5,000 UNIT/0.5 ML SYR SC SCH (14:26)
--- NOTE | 2016-12-10 16:43 | HOSPPROG ---
Hospitalist Progress Note Assessment/Plan: Assessment: 65-year-old male presents with acute chest pain in the setting of multivessel disease requiring CABG Plan: 1. Chest pain. Acute, secondary to obstructive coronary disease, currently chest pain-free - if recurrent chest pain, give sublingual nitroglycerin and treat as unstable angina 2. Coronary artery disease. Multivessel disease on cardiac catheterization, patient is scheduled for CABG tomorrow - CT surgery will assume primary care following surgery - added statin 3. ESRD due to PCKD. Access via fistula has been an issue, will be using bypass machine tomorrow for tai-op HD 4. Nausea and vomiting. Acute, occurring s/p HD, likely 2/2 fluid shifts - more aggressive control of constipation - PRN zofran - moved bowels this AM 5. HTN. Chronic, cont ACEi, added bblocker Diet. Renal PPx. High risk, hold hep SC given surg, SCDs Code. Full Dispo. ADD uncertain, pending CABG Subjective: Patient moved his bowels this morning, counseled regarding his surgery tomorrow, ongoing use of antiemetic medications when nausea recurs Objective: Vital Signs Temp Pulse Resp BP Pulse Ox 36.8 C 81 20 149/74 H 96 12/10/16 08:55 12/10/16 12:00 12/10/16 12:00 12/10/16 12:00 12/10/16 12:00 Laboratory Results 12/10/16 04:38 12/10/16 04:38 12/09/16 12/10/16 12/11/16 05:59 05:59 05:59 Intake Total 700 540 Output Total 600 Balance 100 540 PT 15.5 SEC (12.0-15.0) H 12/08/16 03:49 INR 1.23 (0.83-1.16) H 12/08/16 03:49 - Time Spent With Patient Time Spent with Patient: greater than 25 minutes Time Spent with Patient: Greater than 25 minutes spent on this patients care, greater than 50% of time spent counseling, educating, and coordinating care regarding the above mentioned plan. - Physical Exam Constitutional: no apparent distress, appears nourished, not in pain Cardiovascular: No edema Skin: other (No bleeding at the left arm fistula site) Neurologic: AAOx3 Psychiatric: interacting appropriately, not anxious, not encephalopathic, thought process linear ICD10 Worksheet Patient Problems: Problems Problem Status Onset Chest pain Acute End stage renal disease Acute Elevated troponin Acute
[2016-12-10 19:20] LABS: HEMOGLOBIN A1C 4.3 % (4.0-6.0)
[2016-12-10] MEDS ORDERED: CHLORHEXIDINE GLUC HIBICLENS 118 ML BTL TP SCH (21:00)
[2016-12-10] MEDS: MUPIROCIN 2% 22 GM OINT NS SCH (21:10)
[2016-12-11 05:20] LABS: % IMMATURE GRANULYOCYTES 0.4 % (0.0-1.1); ABSOLUTE IMMATURE GRANULOCYTES 0.02 10^3/uL (0.00-0.10); ADD DIFF? NO; ADD MORPH? NO; ADD SCAN? NO; ATYPICAL LYMPHOCYTE FLAG 0 (0-99); FRAGMENT RBC FLAG 0 (0-99); HEMATOCRIT 25.1 % (40.0-51.0); HEMOGLOBIN 8.5 g/dL (13.7-17.5); LEFT SHIFT FLG 0 (0-99); LIPEMIA HEMOLYSIS FLAG 90 (0-99); MEAN CELL HEMOGLOBIN 31.5 pg (27.9-34.1); MEAN CELL HEMOGLOBIN CONCENTR. 33.9 g/dL (32.4-36.7); MEAN PLATELET VOLUME 8.9 fL (8.7-11.7); PLATELET CLUMPS FLAG 10 (0-99); PLATELET COUNT 109 10^3/uL (150-400); RED CELL DISTRIBUTION WIDTH 13.4 % (11.5-15.2)
[2016-12-11 05:33] LABS: ALBUMIN 3.5 g/dL (3.5-5.0); ANION GAP 11 mEq/L (8-16); CALCIUM 8.9 mg/dL (8.5-10.4); CARBON DIOXIDE 27 mEq/l (22-31); CHLORIDE 101 mEq/L (97-110); CREATININE 6.5 mg/dL (0.7-1.3); GLOMERULAR FILTRATION RATE 9; GLUCOSE 84 mg/dL (70-100); POTASSIUM 4.5 mEq/L (3.5-5.2); SODIUM 139 mEq/L (134-144)
[2016-12-11] MEDS ORDERED: MAGNESIUM SULFATE 1 GM/2 ML VIAL ONE (06:23)
[2016-12-11] MEDS ORDERED: NA BICARBONATE 50 MEQ/50 ML VIAL ONE (06:23)
[2016-12-11] MEDS ORDERED: ADENOSINE 6 MG/2 ML VIAL ONE (06:23)
[2016-12-11] MEDS ORDERED: AMINOCAPROIC ACID 5 GM/20 ML VIAL ONE (06:23)
[2016-12-11] MEDS ORDERED: DOPamine/DEXTROSE/250 ML BAG IV ONE (06:23)
[2016-12-11] MEDS ORDERED: niCARdipine/NACL/200 ML BAG IV ONE ×2 (06:23→18:20)
[2016-12-11] MEDS ORDERED: AMIODARONE HCL 150 MG/3 ML VIAL ONE (06:23)
[2016-12-11] MEDS ORDERED: LIDOCAINE 2% 100 MG/5 ML SYR ONE (06:23)
[2016-12-11] MEDS ORDERED: PROTAMINE SULFATE 50 MG/5 ML VIAL IVP ONE (06:23)
[2016-12-11] MEDS ORDERED: ceFAZolin 1 GM VIAL ONE (06:23)
[2016-12-11] MEDS ORDERED: MILRINONE/DEXTROSE/100 ML BAG IV ONE (06:23)
[2016-12-11] MEDS ORDERED: POTASSIUM Cl (KCl) 20 MEQ/50 ML BAG IV ONE (06:23)
[2016-12-11] MEDS ORDERED: CITRATE DEXTROSE SOLN 500 ML BAG ONE (06:23)
[2016-12-11] MEDS ORDERED: CALCIUM CHLORIDE 1 GM/10 ML INJ ONE (06:23)
[2016-12-11] MEDS ORDERED: methylPREDNISolone SOD SUCC 1 GM/8 ML VIAL ONE (06:23)
[2016-12-11] MEDS ORDERED: ALBUMIN 5% 250 ML BOTTLE IV ONE (06:23)
[2016-12-11] MEDS ORDERED: HEPARIN 10,000 UNIT/10 ML MDV ONE (06:23)
[2016-12-11] MEDS: METOPROLOL TARTRATE 25 MG TAB PO SCH (07:57)
[2016-12-11] MEDS: ATORVASTATIN CALCIUM 40 MG TAB PO SCH (07:57)
[2016-12-11] MEDS: CINACALCET HCL 30 MG TAB PO SCH (07:57)
[2016-12-11] MEDS: LISINOPRIL 10 MG TAB PO SCH (07:57)
[2016-12-11] MEDS: LANTHANUM CARBONATE 1000 MG PO SCH ×3 (07:57→18:22)
[2016-12-11] MEDS: SENNOSIDES/DOCUSATE SODIUM TAB PO SCH (07:58)
[2016-12-11] MEDS: MUPIROCIN 2% 22 GM OINT NS SCH ×2 (07:58→21:47)
--- NOTE | 2016-12-11 09:40 | SOAPPROG ---
SOAP Progress Note Assessment/Plan: Assessment: 1. Multi vessel coronary disease Pt looks quite good pre operatively. Surgery scheduled for noon today. Will be dialyzing intraoperatively. Will assess again in am. 2. ESRD HD today, next on Wednesday if routine 3. HTN Controlled 4. Tobacco Discussed cessation 5. Anemia Stable. He does not need EMILIA at present Plan: 12/11/16 09:37 Subjective: Doing well Objective: Vital Signs Temp Pulse Resp BP Pulse Ox 36.6 C 77 17 150/73 H 97 12/11/16 04:00 12/11/16 04:00 12/11/16 04:00 12/11/16 04:00 12/11/16 04:00 Laboratory Results 12/11/16 04:37 12/11/16 04:37 12/10/16 12/11/16 12/12/16 05:59 05:59 05:59 Intake Total 540 200 Balance 540 200 PT 15.5 SEC (12.0-15.0) H 12/08/16 03:49 INR 1.23 (0.83-1.16) H 12/08/16 03:49 Physical Exam - Physical Exam General Appearance: no apparent distress Respiratory: lungs clear Cardiac/Chest: regular rate, rhythm Extremities: pedal edema (trace) Neuro/Psych: normal mood/affect, oriented x 3 ICD10 Worksheet Patient Problems: Problems Problem Status Onset Chest pain Acute Elevated troponin Acute End stage renal disease Acute
--- NOTE | 2016-12-11 09:43 | SOAPPROG ---
SOAP Progress Note Assessment/Plan: Assessment: Addendum; Correction to my previous not. Pt's Hct 25, he will remain on EMILIA. He is TC'd for today's procedure. He also needs evaluation of nausea, if this persists postop. It is possible that this has been an anginal equivalent. Objective: Vital Signs Temp Pulse Resp BP Pulse Ox 36.6 C 77 17 150/73 H 97 12/11/16 04:00 12/11/16 04:00 12/11/16 04:00 12/11/16 04:00 12/11/16 04:00 Laboratory Results 12/11/16 04:37 12/11/16 04:37 12/10/16 12/11/16 12/12/16 05:59 05:59 05:59 Intake Total 540 200 Balance 540 200 PT 15.5 SEC (12.0-15.0) H 12/08/16 03:49 INR 1.23 (0.83-1.16) H 12/08/16 03:49 ICD10 Worksheet Patient Problems: Problems Problem Status Onset Chest pain Acute Elevated troponin Acute End stage renal disease Acute
[2016-12-11] MEDS ORDERED: AMINOCAPROIC ACID 5 GM/20 ML VIAL IV ONE (10:00)
[2016-12-11] MEDS ORDERED: ceFAZolin 2 GM/DEXTROSE 100 ML IV ONE (10:00)
[2016-12-11] MEDS ORDERED: SODIUM BICARBONATE 20 MEQ, LIDOCAINE 1% 10 ML in NORMOSOL-R 1,000 ML MISC ONE (10:00)
[2016-12-11] MEDS ORDERED: CITRATE DEXTROSE SOLN 500 ML BAG MISC ONE (10:00)
[2016-12-11] MEDS ORDERED: NOREPINEPHRINE BITARTRATE 16 MG in NS 250 ML IV ONE (10:00)
[2016-12-11] MEDS ORDERED: NS 1,000 ML IV ONE (10:00)
[2016-12-11] MEDS ORDERED: VERAPAMIL 5 MG, NITROGLYCERIN 2.5 MG, HEPARIN 500 UNIT, SODIUM BICARBONATE 0.2 MEQ in L... MISC ONE (10:00)
[2016-12-11] MEDS ORDERED: INSULIN REGULAR HUMAN 100 UNIT in NS 100 ML IV ONE (10:00)
[2016-12-11] MEDS ORDERED: PHENYLEPHRINE HCL 50 MG in NS 250 ML IV ONE (10:00)
[2016-12-11] MEDS ORDERED: MANNITOL 25% 12.5 GM/50 ML VIAL IV ONE (10:00)
[2016-12-11] MEDS ORDERED: MIDAZOLAM 2 MG/2 ML VIAL ONE (12:14)
[2016-12-11] MEDS ORDERED: REMIFENTANIL HCL 1 MG VIAL ONE ×2 (12:17→14:47)
[2016-12-11] MEDS ORDERED: fentaNYL 100 MCG/2 ML INJ ONE ×2 (12:17→12:18)
[2016-12-11] MEDS ORDERED: PROPOFOL/EMULSION 500 MG/50 ML BOTTLE IV ONE ×2 (12:18→14:47)
[2016-12-11] MEDS ORDERED: CISATRACURIUM BESYLATE 20 MG/10 ML VIAL IV ONE (12:20)
[2016-12-11] MEDS ORDERED: METOCLOPRAMIDE 10 MG/2 ML VIAL ONE (12:20)
[2016-12-11] MEDS ORDERED: DEXAMETHASONE 4 MG/ML VIAL ONE (12:20)
[2016-12-11] MEDS ORDERED: MINERAL OIL 10 ML VIAL TP ONE (12:29)
[2016-12-11] MEDS ORDERED: PAPAVERINE HCL 60 MG/2 ML SDV ONE (12:40)
[2016-12-11] MEDS ORDERED: VERAPAMIL 5 MG/2 ML VIAL ONE (12:40)
--- NOTE | 2016-12-11 14:04 | PDCARPN ---
Cardiology Progress Note Chief Complaint: Poor sleep overnight. No cardiovascular complaints Assessment/Plan: Assessment: 12-11-16 CABG surgery scheduled for today. Ongoing close nephrology following. HD yesterday without events. No chest pains or pressure overnight or at the time of the examination today. 12-10-16 Good sleep overnight and bowel movement. Ongoing dialysis at present. There were issues noted yesterday with access, and dialysis was not performed. No chest pains or pressure. No PND or orthopnea. Patient still wanting to go home , but this is against medical advice. Patient is scheduled for CABG tomorrow. 12-09-16 Good sleep overnight. Discussion last night from cardiology (myself) and CT surgery (Dr. Madison Hernandes). Plan for CABG on Wednesday. Dialysis is scheduled for today. No pain or discomfort to the cath site has been noted. Patient understands the recommendations. He did voice desire to go home, if possible, prior to the CABG surgery. Given the pains voiced yesterday (pre cath), cardiology had wanted the patient to stay in house. No pains have been reported last night/today. 12-08-16 Patient is a 65 y/o male with history of CAD s/p PCI to RCA (about 8 years ago in setting of AMI), ESRD with HD three times per week (Dr. Johnson Maldonado) due to polycystic kidney disease, and HTN, who presented to [facility] with complaints of chest discomfort. Discomfort was 'dull' in character, and only noted for about 72 hours prior to admission. Chronic degree of nausea has been noted with HD days. Uncertain if there has been "new" water weight given ongoing hemodialysis. Chest pains are new for the patient. Sharp, rapid onset chest pains have been noted for some time, but the dull ache has been the new symptom for the past several days. No PND or orthopnea. No dizziness or lightheadedness. Compliance with prescribed medical therapy has been good. Poor relationship with physicians in the past when he was followed by . No regular or routine cardiology follow up has been maintained since the PCI. Plan: (1) CABG today - anemia noted, query need for blood products perioperatively (2) Maintain antihypertensive therapy (3) Maintain statin therapy Cardiology will follow as needed post CABG Subjective: No complaints other than rather poor sleep overnight Reviewed/Discussed With: family, hospitalist, multidisciplinary team Time Spent With Patient: 15 minutes Objective: Vital Signs (8 Hrs) Temp Pulse Resp BP Pulse Ox 12/11/16 10:30 36.8 C 74 18 160/82 H 98 Intake/Output (24 Hrs) 12/10/16 12/11/16 12/12/16 05:59 05:59 05:59 Intake Total 540 200 Balance 540 200 Intake: Oral (ml) 540 200 Other: Weight 91.8 kg 90.2 kg Intake Quantity Yes Sufficient Number of Voids Toilet 2 2 Number of Stools Toilet 1 Number of Emesis 1 Occurrences Result Diagrams: 12/11/16 04:37 12/11/16 04:37 Telemetry: normal sinus rhythm Echocardiogram: grossly normal LVEF - Physical Exam Constitutional: WDWN, healthy appearing, no apparent distress Eyes: PERRL Ears, Nose, Mouth, Throat: moist mucous membranes Cardiovascular: regular rate and rhythm, no murmurs, no rubs, no gallops Peripheral Pulses: 2+: dorsalis-pedis (R), dorsalis-pedis (L) Respiratory: clear to auscultate bilat, no crackles, no wheezes Gastrointestinal: normoactive bowel sounds Skin: no rashes, no edema Musculoskeletal: no muscular tenderness Neurologic: AAOx3, CN II-XII grossly intact Psychiatric: cooperative, interactive, following commands ICD10 Worksheet Patient Problems: Problems Problem Status Onset Chest pain Acute Elevated troponin Acute End stage renal disease Acute
[2016-12-11] MEDS ORDERED: HYDROmorphONE/DILAUDID 2 MG/ML INJ ONE (15:20)
--- NOTE | 2016-12-11 16:19 | POSTOPPROG ---
Post Op Note Date of Operation: 12/11/16 Surgeon: Hamilton Hernandes Popcorn Candy Maker: Zbigniew Anesthesiologist: Maurisio Anesthesia: GET(General Endotracheal) Pre-op Diagnosis: ASHD, AMI, CRF Procedure: CAB 4 Orosco-Lad, SVG-OM1, PLRCA seq PDA, EVH, Atriclip SITA Inf/Abcess present in the surg proc area at time of surgery?: No EBL: 100-500 Drains: Other (2 blakes)
[2016-12-11] MEDS ORDERED: SODIUM CL NASAL 45 ML BTL EACHNARE PRN (16:24)
[2016-12-11] MEDS ORDERED: MEPERIDINE 25 MG/ML SYR IVP PRN (16:24)
[2016-12-11] MEDS ORDERED: POTASSIUM Cl (KCl) 50 ML IV PRN (16:24)
[2016-12-11] MEDS ORDERED: D50W 25 GM/50 ML SYR IVP PRN (16:24)
[2016-12-11] MEDS ORDERED: PANTOPRAZOLE SODIUM 40 MG in NS 100 ML IV ONE (16:24)
[2016-12-11] MEDS ORDERED: ACETAMINOPHEN 650 MG SUPP PR PRN (16:24)
[2016-12-11] MEDS ORDERED: ALBUMIN 5% 250 ML IV PRN (16:24)
[2016-12-11] MEDS ORDERED: INSULIN REGULAR HUMAN 100 UNIT in NS 100 ML IV SCH (16:30)
[2016-12-11] MEDS ORDERED: MAGNESIUM SULF 2 GM/WATER 50 ML BAG IV ONE ×2 (16:30→16:33)
[2016-12-11] MEDS ORDERED: NS 1,000 ML IV SCH (16:30)
--- NOTE | 2016-12-11 16:40 | GOP ---
[f rep st] OPERATIVE REPORT DATE OF OPERATION: 12/11/2016 SURGEON: Hamilton Hernandes DO DIRECTOR OF NUCLEAR MEDICINE: Liz Coy, PAC. ANESTHESIOLOGIST: Yahaira Loredo MD. PREOPERATIVE DIAGNOSIS: 1. Acute myocardial infarction with severe 3-vessel disease. 2. Chronic renal failure. 3. Chronic obstructive pulmonary disease, severe. 4. Obesity. 5. Uncontrolled hypertension. POSTOPERATIVE DIAGNOSIS: 1. Acute myocardial infarction with severe 3-vessel disease. 2. Chronic renal failure. 3. Chronic obstructive pulmonary disease, severe. 4. Obesity. 5. Uncontrolled hypertension. PROCEDURE PERFORMED: 1. Urgent coronary artery bypass grafting x4 with left internal mammary artery to the left anterior descending, saphenous vein graft to the 1st obtuse marginal, saphenous vein graft to the posterolat eral branch of the right sequential to the posterior descending artery of the right brought through the oblique sinus. 2. Endoscopic vein harvest. 3. AtriClip to the left atrial appendage. FINDINGS: Patient presented with acute coronary syndrome. Was taken to the lab asst and found to h ave 3-vessel disease with moderate LV dysfunction, significant left ventricular hypertrophy, and chr onic renal failure on dialysis. DESCRIPTION OF PROCEDURE: He was consented for surgery, brought to the operating room, intubated, m onitoring lines were placed. He was prepped and draped in sterile classical manner. Sternotomy was performed. It should be noted that dialysis was performed on pump to maintain low potassium. The mammary was harvested. It was a good quality 2.5 mm vessel with brisk flow. He was heparinized, ca nnulated in a standard fashion. Cardiopulmonary bypass was begun. A cardioplegic arrest was obtain ed with antegrade cardioplegia, topical hypothermia, and systemic cooling. All distals and proximal s were performed with the cross-clamp on. The circumflex vessel was a 2.5 mm vessel. The posterior descending was 1.8, and a posterolateral was a 2.0 mm vessel. The vein was excellent quality as wa s the mammary. Patient was then weaned from bypass. The heparin was reversed with protamine. The cannula was removed and oversewn. 2 ventricular pacing wires were placed. The thymic fat and peric ardium were closed. Chest was closed in standard fashion. Patient was returned to ICU in stable co ndition. /[id number]/MODL
--- NOTE | 2016-12-11 16:59 | HOSPPROG ---
Hospitalist Progress Note Assessment/Plan: Hospital Medicine will sign-off and transfer primary care to CT surgery (Dr. Hernandes), as discussed on 12/09. If Hosp Med assistance / consult is required, please contact [phone] and request follow-up care. Objective: Vital Signs Temp Pulse Resp BP Pulse Ox 36.8 C 74 18 160/82 H 98 12/11/16 10:30 12/11/16 10:30 12/11/16 10:30 12/11/16 10:30 12/11/16 10:30 Laboratory Results 12/11/16 04:37 12/11/16 04:37 12/10/16 12/11/16 12/12/16 05:59 05:59 05:59 Intake Total 540 200 Balance 540 200 PT 15.5 SEC (12.0-15.0) H 12/08/16 03:49 INR 1.23 (0.83-1.16) H 12/08/16 03:49 ICD10 Worksheet Patient Problems: Problems Problem Status Onset Chest pain Acute End stage renal disease Acute Elevated troponin Acute
[2016-12-11 17:20] LABS: CALCULATED OXYGEN SATURATION 99 % (92-95); O2 CONCENTRATIION 90 % (0-100)
--- NOTE | 2016-12-11 17:20 | CPEKG ---
Heart Rate: 75 RR Interval: 800 P-R Interval: 264 QRSD Interval: 108 QT Interval: 464 QTC Interval: 519 P [place]: 40 QRS [place]: -37 T Wave [place]: 39 EKG Severity - ABNORMAL ECG - EKG Impression: SINUS RHYTHM EKG Impression: FIRST DEGREE AV BLOCK EKG Impression: BORDERLINE IVCD WITH LAD EKG Impression: LOW VOLTAGE IN FRONTAL LEADS EKG Impression: PROLONGED QT INTERVAL Electronically Signed By: Eloy Robin 12-Dec-2016 16:42:56
[2016-12-11] MEDS ORDERED: niCARdipine/NACL 200 ML IV SCH (18:30)
[2016-12-11] MEDS: fentaNYL 100 MCG/2 ML INJ IVP PRN ×2 (19:17→20:28)
[2016-12-11] MEDS: HYDROCODONE/APAP 5/325 TAB PO PRN (20:17)
[2016-12-11] MEDS: ONDANSETRON 4 MG/2 ML VIAL IVP PRN (23:44)
[2016-12-12] MEDS: oxyCODONE IR 5 MG TAB PO PRN ×4 (00:22→19:58)
[2016-12-12 03:37] LABS: HEMATOCRIT 27.3 % (40.0-51.0); HEMOGLOBIN 9.6 g/dL (13.7-17.5); MEAN CELL HEMOGLOBIN 31.2 pg (27.9-34.1); MEAN CELL HEMOGLOBIN CONCENTR. 35.2 g/dL (32.4-36.7); MEAN CELL VOLUME 88.6 fL (81.5-99.8); RED BLOOD CELL COUNT 3.08 10^6/uL (4.40-6.38); RED CELL DISTRIBUTION WIDTH 15.8 % (11.5-15.2)
[2016-12-12 05:15] LABS: % IMMATURE GRANULYOCYTES 0.4 % (0.0-1.1); ABSOLUTE IMMATURE GRANULOCYTES 0.03 10^3/uL (0.00-0.10); ADD DIFF? NO; ADD MORPH? NO; ADD SCAN? NO; ATYPICAL LYMPHOCYTE FLAG 0 (0-99); FRAGMENT RBC FLAG 0 (0-99); HEMATOCRIT 28.5 % (40.0-51.0); HEMOGLOBIN 9.9 g/dL (13.7-17.5); LEFT SHIFT FLG 0 (0-99); LIPEMIA HEMOLYSIS FLAG 90 (0-99); MEAN CELL HEMOGLOBIN 30.4 pg (27.9-34.1); MEAN CELL HEMOGLOBIN CONCENTR. 34.7 g/dL (32.4-36.7); MEAN CELL VOLUME 87.4 fL (81.5-99.8); MEAN PLATELET VOLUME 9.6 fL (8.7-11.7); PLATELET CLUMPS FLAG 0 (0-99); PLATELET COUNT 77 10^3/uL (150-400); RED BLOOD CELL COUNT 3.26 10^6/uL (4.40-6.38); RED CELL DISTRIBUTION WIDTH 15.6 % (11.5-15.2)
[2016-12-12 05:34] LABS: ALBUMIN 3.2 g/dL (3.5-5.0); ANION GAP 13 mEq/L (8-16); CARBON DIOXIDE 20 mEq/l (22-31); CHLORIDE 101 mEq/L (97-110); CREATININE 5.9 mg/dL (0.7-1.3); GLOMERULAR FILTRATION RATE 10; GLUCOSE 133 mg/dL (70-100); SODIUM 134 mEq/L (134-144)
[2016-12-12] MEDS ORDERED: HEPARIN 5,000 UNIT/0.5 ML SYR SC SCH (06:00)
--- NOTE | 2016-12-12 07:42 | SOAPPROG ---
SOAP Progress Note Assessment/Plan: Assessment: POD#1 CABG x 4 (COY-LAD, SV-OM1, SV sequentially to PDA and PLR), prophylactic AtriClip ligation SITA, EVH LLE Sx severe CAD w preserved LV systolic fx - s/p CABG4. Hemodynamically stable early postop course. No vasoactive support, tachyarrhythmias, or backup pacing. Secondary prevention with ASA, BB as allowed by BP, and statin. ESRD/PCKD - HD 3x weekly. LUE AVF. Dialyzed intraop. Postop HD/UF per nephrology. Acute on chronic anemia with thrombocytopenia - Preop H/H 8.5/25.1, platelets 109, receiving Epo w HD qweek. Expected surgical loss repleted with 3u PRBC. No evidence active bleeding. Follow. Suspected COPD - Longstanding tobacco abuse, 1/2 to 1 ppd x 50yrs, successfully quitting for 2yrs s/p (remote) IMI. Extubated without incident. Minimal suppl O2 req. Nebs, mucolytics prn. Motivated to quit smoking "for good". Cessation aids declined. Plan: Routine POD#1 re lines, drains, wires, orals and mobility. Dialysis per nephrology. Tx to PCU. 12/12/16 07:41 Subjective: In good spirits. Grateful for care received. Satisfactory analgesia. Tolerating liquids. No dizziness OOB. Only concern is "having a bowel movement." Objective: Vital Signs Temp Pulse Resp BP Pulse Ox 36.3 C 87 16 110/50 L 98 12/12/16 04:00 12/12/16 06:00 12/12/16 06:00 12/12/16 06:00 12/12/16 06:00 Laboratory Results 12/12/16 05:00 12/12/16 05:00 12/11/16 12/12/16 12/13/16 05:59 05:59 05:59 Intake Total 200 2395 Output Total 980 Balance 200 1415 PT 15.5 SEC (12.0-15.0) H 12/08/16 03:49 INR 1.23 (0.83-1.16) H 12/08/16 03:49 HR, rhythm and BP controlled. Positive fluid balance to maintain CVP > 8. No sig CTOP. No air leak. CXR-> No PTX. Min pulm vasc congestion. Mild rt basilar atelectasis. Physical Exam - Physical Exam General Appearance: alert, no apparent distress Respiratory: lungs clear (grossly), other (Blakes x 2 y-d to pleurovac, serosang drainage, no AL) Cardiac/Chest: regular rate, rhythm, other (Sternum grossly stable. Sternotomy and LLE venotomy CDI. Vwire intact.) Abdomen: non-tender, soft Skin: warm/dry Extremities: other (trace-1+ dependent edema) ICD10 Worksheet Patient Problems: Problems Problem Status Onset Chest pain Acute Elevated troponin Acute End stage renal disease Acute
[2016-12-12] MEDS ORDERED: ASPIRIN 81 MG CHEWABLE TAB TUBE PRN (09:00)
[2016-12-12] MEDS: ceFAZolin 2 GM/DEXTROSE 100 ML IV SCH (09:07)
[2016-12-12] MEDS: POLYETHYLENE GLYCOL 3350 17 GM PKT PO PRN (09:07)
[2016-12-12] MEDS: ASPIRIN 81 MG CHEWABLE TAB PO SCH (09:07)
[2016-12-12] MEDS: PANTOPRAZOLE SODIUM 40 MG TAB PO SCH (09:07)
[2016-12-12] MEDS ORDERED: ALBUMIN 5% 500 ML BOTTLE IV ONE ×2 (10:09→12:38)
--- NOTE | 2016-12-12 11:11 | SOAPPROG ---
SOSENTHIL Progress Note Assessment/Plan: Assessment: 1. s/p CABG Doing very well post op. CVP 8. 2. CBC Hg stable after transfusions. Follow plts 3. ESRD For dialysis later today. No heparin or UF. Subjective: In good spirits Objective: Vital Signs Temp Pulse Resp BP Pulse Ox 36.3 C 87 16 110/50 L 98 12/12/16 04:00 12/12/16 06:00 12/12/16 06:00 12/12/16 06:00 12/12/16 06:00 Laboratory Results 12/12/16 05:00 12/12/16 05:00 12/11/16 12/12/16 12/13/16 05:59 05:59 05:59 Intake Total 200 2395 Output Total 980 270 Balance 200 1415 -270 PT 15.5 SEC (12.0-15.0) H 12/08/16 03:49 INR 1.23 (0.83-1.16) H 12/08/16 03:49 Physical Exam - Physical Exam General Appearance: no apparent distress Respiratory: lungs clear Cardiac/Chest: regular rate, rhythm Extremities: pedal edema Neuro/Psych: oriented x 3 ICD10 Worksheet Patient Problems: Problems Problem Status Onset Chest pain Acute Elevated troponin Acute End stage renal disease Acute
[2016-12-12] MEDS: CINACALCET HCL 30 MG TAB PO SCH (11:15)
[2016-12-12] MEDS: MUPIROCIN 2% 22 GM OINT NS SCH ×2 (11:16→21:44)
[2016-12-12] MEDS ORDERED: NOREPINEPHRINE BITARTRATE 4 MG in D5W 500 ML IV SCH (13:30)
[2016-12-12] MEDS ORDERED: ALBUMIN 5% 500 ML IV ONE ×2 (13:30)
[2016-12-12] MEDS: LANTHANUM CARBONATE 1000 MG PO SCH ×2 (14:36→19:54)
[2016-12-12] MEDS: LACTULOSE 20 GM/30 ML UDCUP PO PRN (19:55)
[2016-12-12] MEDS: SENNOSIDES/DOCUSATE SODIUM TAB PO SCH (19:58)
[2016-12-12] MEDS ORDERED: LIDOCAINE 1% *Not for Epidural 20 ML MDV ONE (20:36)
[2016-12-12] MEDS: CEPACOL LOZENGE PO PRN (21:45)
[2016-12-12] MEDS ORDERED: IPRATROPIUM/ALBUTEROL 3 ML DEYVIAL IH PRN (22:12)
[2016-12-12] MEDS: traMADol 50 MG TAB PO PRN (22:20)
[2016-12-12] MEDS: BENZONATATE 100 MG CAP PO PRN (22:20)
[2016-12-12] MEDS: guaiFENesin 600 MG TAB.ER PO SCH (23:16)
[2016-12-13 05:54] LABS: % IMMATURE GRANULYOCYTES 0.5 % (0.0-1.1); ABSOLUTE IMMATURE GRANULOCYTES 0.03 10^3/uL (0.00-0.10); ADD DIFF? NO; ADD MORPH? NO; ADD SCAN? NO; ATYPICAL LYMPHOCYTE FLAG 0 (0-99); FRAGMENT RBC FLAG 0 (0-99); HEMATOCRIT 23.4 % (40.0-51.0); LEFT SHIFT FLG 0 (0-99); LIPEMIA HEMOLYSIS FLAG 90 (0-99); MEAN CELL HEMOGLOBIN 30.9 pg (27.9-34.1); MEAN CELL HEMOGLOBIN CONCENTR. 34.2 g/dL (32.4-36.7); MEAN CELL VOLUME 90.3 fL (81.5-99.8); MEAN PLATELET VOLUME 9.8 fL (8.7-11.7); PLATELET CLUMPS FLAG 10 (0-99); PLATELET COUNT 55 10^3/uL (150-400); RED BLOOD CELL COUNT 2.59 10^6/uL (4.40-6.38); RED CELL DISTRIBUTION WIDTH 15.8 % (11.5-15.2)
[2016-12-13 06:06] LABS: ALBUMIN 3.1 g/dL (3.5-5.0); ANION GAP 12 mEq/L (8-16); CALCIUM 8.6 mg/dL (8.5-10.4); CARBON DIOXIDE 26 mEq/l (22-31); CHLORIDE 97 mEq/L (97-110); CREATININE 4.8 mg/dL (0.7-1.3); GLOMERULAR FILTRATION RATE 12; GLUCOSE 123 mg/dL (70-100); POTASSIUM 4.4 mEq/L (3.5-5.2); SODIUM 135 mEq/L (134-144)
[2016-12-13] MEDS: ACETAMINOPHEN 325 MG TAB PO PRN ×4 (06:23→21:39)
[2016-12-13] MEDS: traMADol 50 MG TAB PO PRN (06:23)
[2016-12-13] MEDS: oxyCODONE IR 5 MG TAB PO PRN ×5 (06:23→21:40)
--- NOTE | 2016-12-13 08:01 | SOAPPROG ---
SOAP Progress Note Assessment/Plan: Assessment: POD#2 CABG x 4 (COY-LAD, SV-OM1, SV sequentially to PDA and PLR), prophylactic AtriClip ligation SITA, EVH LLE Sx severe CAD w preserved LV systolic fx - s/p CABG4. Stable early postop course. No tachyarrhythmias or backup pacing. Transient pressor support post dialysis. Secondary prevention with ASA, BB when appropriate, and statin. ESRD/PCKD - HD 3x weekly. LUE AVF. Dialyzed intraop. Postop HD/UF per nephrology. Acute on chronic anemia with thrombocytopenia - Preop H/H 8.5/25.1, platelets 109, receiving Epo w HD qweek. Expected surgical loss repleted with 3u PRBC. Addtl PRBC for downward drift in H/H with low CVP. No evidence active bleeding. Follow. Suspected COPD - Longstanding tobacco abuse, 1/2 to 1 ppd x 50yrs, successfully quitting for 2yrs s/p (remote) IMI. Extubated without incident. Minimal suppl O2 req. Nebs, mucolytics prn. Motivated to quit smoking "for good". Cessation aids declined. Plan: Transfuse 2u PRBC. Restart levophed @2 mcg for MAP > 65. Keep blakes for at least one more day. Tx to PCU once blood in/off levo. 12/13/16 08:00 Subjective: Rough night d/t coughing spells and hard time mobilizing secretions. Calmer this am. Aware BP has been low. Denies dizziness or lightheadedness. Objective: Vital Signs Temp Pulse Resp BP Pulse Ox 37 C 76 18 97/57 L 98 12/13/16 04:00 12/13/16 06:00 12/13/16 06:00 12/13/16 06:00 12/13/16 06:00 Laboratory Results 12/13/16 05:40 12/13/16 05:40 12/12/16 12/13/16 12/14/16 05:59 05:59 05:59 Intake Total 2395 2375 Output Total 980 1280 Balance 1415 1095 PT 15.5 SEC (12.0-15.0) H 12/08/16 03:49 INR 1.23 (0.83-1.16) H 12/08/16 03:49 Kept in ICU yest for pressor support w levo post HD. IVF for CVP 5-6. HR, rhythm, and suppl O2 req stable throughout. Gradual downward drift in SBPs since MN (off levo). CXR-> mild pulm vasc congestion, small left pleural effusion despite tube in good postion. CTOP thin, quantity still moderate. +fluid balance, corrected K post HD. Recurrent dip in H/H and plt count, partially dilutional (+6kg) Physical Exam - Physical Exam General Appearance: alert, no apparent distress Respiratory: decreased breath sounds (left base), other (blakes x 2 to bulb suction, thin serosang drainage with stranding. Left pleural tube stripped for 400ml. ) Cardiac/Chest: regular rate, rhythm, other (Sternum grossly stable. Sternotomy and LLE venotomy CDI) Abdomen: non-tender, soft Skin: warm/dry, pallor Extremities: swelling (1-2+ dependent) ICD10 Worksheet Patient Problems: Problems Problem Status Onset Chest pain Acute Elevated troponin Acute End stage renal disease Acute
[2016-12-13] MEDS: ceFAZolin 2 GM/DEXTROSE 100 ML IV SCH (08:48)
[2016-12-13] MEDS: ASPIRIN 81 MG CHEWABLE TAB PO SCH (08:49)
[2016-12-13] MEDS: guaiFENesin 600 MG TAB.ER PO SCH ×2 (08:49→21:32)
[2016-12-13] MEDS: PANTOPRAZOLE SODIUM 40 MG TAB PO SCH (08:49)
[2016-12-13] MEDS: SENNOSIDES/DOCUSATE SODIUM TAB PO SCH ×3 (08:49→21:31)
[2016-12-13] MEDS: CINACALCET HCL 30 MG TAB PO SCH (08:51)
[2016-12-13] MEDS: LANTHANUM CARBONATE 1000 MG PO SCH ×4 (08:52→17:17)
[2016-12-13] MEDS ORDERED: NOREPINEPHRINE BITARTRATE 4 MG in D5W 500 ML IV SCH (08:57)
[2016-12-13] MEDS: ATORVASTATIN CALCIUM 40 MG TAB PO SCH (09:09)
--- NOTE | 2016-12-13 10:35 | SOAPPROG ---
SOAP Progress Note Assessment/Plan: Assessment: 1. s/p CABG Doing well overall. A bit more pain today. BP still low. Getting some volume. 2. CBC Getting additional transfusions. K ok. On epo. 3. ESRD 4. Constipation Being treated Subjective: More pain today, but overall doing well and in good spirits Objective: Vital Signs Temp Pulse Resp BP Pulse Ox 36.8 C 83 20 103/63 100 12/13/16 08:00 12/13/16 09:00 12/13/16 09:00 12/13/16 09:00 12/13/16 09:00 Laboratory Results 12/13/16 05:40 12/13/16 05:40 12/12/16 12/13/16 12/14/16 05:59 05:59 05:59 Intake Total 2395 2375 Output Total 980 1280 280 Balance 1415 1095 -280 PT 15.5 SEC (12.0-15.0) H 12/08/16 03:49 INR 1.23 (0.83-1.16) H 12/08/16 03:49 Physical Exam - Physical Exam General Appearance: no apparent distress Respiratory: decreased breath sounds Cardiac/Chest: regular rate, rhythm Extremities: pedal edema Neuro/Psych: oriented x 3 ICD10 Worksheet Patient Problems: Problems Problem Status Onset Chest pain Acute Elevated troponin Acute End stage renal disease Acute
[2016-12-13] MEDS ORDERED: ALBUMIN 5% 500 ML BOTTLE IV ONE (13:21)
[2016-12-13] MEDS ORDERED: ALBUMIN 5% 500 ML IV ONE ×2 (14:00→14:30)
[2016-12-13] MEDS: POLYETHYLENE GLYCOL 3350 17 GM PKT PO PRN (16:17)
--- NOTE | 2016-12-13 16:41 | GCON ---
[f rep st] CONSULTATION PULMONARY CRITICAL CARE CONSULTATION DATE OF CONSULTATION: 12/13/2016 REASON FOR CONSULTATION: Intensive care unit evaluation and medical management following open heart surgery. HISTORY: The patient is a 65-year-old gentleman who presented to the hospital on 12/08 with atypica l chest pain. He had a history of known coronary artery disease, with a previous stent to the right coronary artery associated with myocardial infarction approximately 8 years ago. He has chronic re nal failure secondary to polycystic kidney disease, and gets hemodialysis 3 times a week. Other pro blems include systemic hypertension and ongoing tobacco abuse. He was smoking a half-pack of cigare ttes per day or more. Prior to his admission. He was taken to the operating room 2 days ago where four-vessel coronary artery bypass grafting was done, though left atrial appendage was also clipped. He was returned to the intensive care unit, extubated. He has done relatively well, however. Blood pressures have remained borderline, and he remains on low-dose Levophed. He complains of anterior chest discomfort. He denies significant shortness of breath. Oxygen requirements are low at 2 L. He is otherwise doing well. Chest tubes and urinary catheter have been removed. PAST MEDICAL HISTORY: Coronary artery disease, as outlined above, systemic hypertension, chronic re nal failure, on hemodialysis, polycystic kidney disease, and ongoing tobacco abuse. He apparently d oes not have a known history of COPD, and he recalls that pulmonary function testing done in the [facility] was quite normal?. PAST SURGICAL HISTORY: Right hip replacement, knee surgeries, left upper extremity AV fistula place ment, previous stent. DRUG ALLERGIES: None known. SOCIAL HISTORY: The patient continues to smoke cigarettes. Alcohol and drugs are denied. The juan ramon ent lives with his son. 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 FAMILY HISTORY: Positive for polycystic kidney disease. REVIEW OF SYSTEMS: A 10-point review of systems is negative, except as mentioned in the HPI. PHYSICAL EXAMINATION: GENERAL: Reveals a pleasant gentleman, who is sitting mostly upright in bed. He complains of anterior chest discomfort. VITAL SIGNS: Blood pressure is 115/70, on low-dose no repinephrine, heart rate 75, with sinus rhythm on the monitor. On 2 L of nasal cannula oxygen, satu rations are 98%. Respiratory rate is 18. He is afebrile. HEENT: Unremarkable for lymphadenopathy or thyromegaly. There is no obvious jugular venous distention. Nasal cannula oxygen is in place. CHEST: Reveals decreased breath sounds bilaterally, with a slightly prolonged expiratory phase. T here is some bibasilar rales, more prominent on the left than the right. There are no rhonchi curre ntly with cough. There are no significant wheezes. HEART: Regular in rate and rhythm. Heart tone s are distant. Murmurs and gallops cannot be appreciated. ABDOMEN: Soft and nontender. Bowel esteban nds are present. EXTREMITIES: Remarkable for trace plus edema. No Yip catheter is in place. NE UROLOGIC: Examination is within normal limits. LABORATORY DATA: Chest x-ray today shows a possible small pneumothorax at the left apex, expected p ostoperative left lower lobe atelectasis. Mild pulmonary edema cannot be excluded. White blood cell count is 6400, hematocrit 23. He did receive 2 units of packed red blood cells tod ay. Platelets are 55,000. Sodium is 135, potassium 4.4, CO2 26, BUN is 26, creatinine of 4.8, gluc ose 123. Calcium and phosphorus are normal. Albumin 3.1. IMPRESSION: 1. Status post coronary artery bypass grafting. He is doing relatively well. He remained somewhat hypotensive, and has been restarted on Levophed secondary to this. In part, this was secondary to blood loss. He has now been given blood and albumin, and is on intravenous fluids. 2. Acute blood loss anemia, status post 2 more units of blood, 2 previously. There is no evidence of active bleeding. Hematocrit will be followed. 3. Chronic renal failure requiring hemodialysis. It is secondary to polycystic kidney disease. Th ree [id number] dialysis will be continued, obviously, while he is here. 4. History of tobacco abuse. He may have a component of chronic obstructive pulmonary disease. He is on albuterol on an as-needed basis, as well as Duo-Neb's. There is no evidence of acute exacerb ation. Further characterization of his lung disease can be done as an outpatient if he wants to do this again. His last evaluation was about 8 years ago. Smoking cessation is, of course, encouraged . 5. Thrombocytopenia, likely secondary to surgical issues, his pump run, etc. Platelets will be fol lowed. 6. Metabolic: No issues identified. 7. Deep vein thrombosis prophylaxis: Sequential compression devices. Anticoagulation is currently contraindicated until his hematocrit stabilizes. 8. Gastrointestinal prophylaxis: Pantoprazole. PLAN: The patient will be kept in the intensive care unit. Norepinephrine will be continued to venkatesh ntain a mean arterial pressure of 60 or above. Laboratory, CBC, chest x-ray will all be followed. Current medications will be continued. However, antihypertensives will be held. Further plans and recommendations will be made based on his progress over the next 12-24 hours. /[id number]/MODL
[2016-12-13] MEDS: BENZONATATE 100 MG CAP PO PRN (21:40)
[2016-12-13] MEDS: CEPACOL LOZENGE PO PRN (21:46)
[2016-12-14] MEDS: ACETAMINOPHEN 325 MG TAB PO PRN ×3 (01:22→14:02)
[2016-12-14] MEDS: oxyCODONE IR 5 MG TAB PO PRN ×5 (01:23→20:48)
[2016-12-14] MEDS: LIDOCAINE/PRILOCAINE 1 EACH CRTUBE TP PRN (05:42)
[2016-12-14 06:07] LABS: ALBUMIN 2.9 g/dL (3.5-5.0); ANION GAP 10 mEq/L (8-16); CARBON DIOXIDE 25 mEq/l (22-31); CHLORIDE 97 mEq/L (97-110); CREATININE 6.3 mg/dL (0.7-1.3); GLOMERULAR FILTRATION RATE 9; GLUCOSE 97 mg/dL (70-100); POTASSIUM 4.5 mEq/L (3.5-5.2); SODIUM 132 mEq/L (134-144)
[2016-12-14 06:09] LABS: % IMMATURE GRANULYOCYTES 1.1 % (0.0-1.1); ADD DIFF? NO; ADD MORPH? NO; ADD SCAN? NO; ATYPICAL LYMPHOCYTE FLAG 0 (0-99); FRAGMENT RBC FLAG 0 (0-99); HEMATOCRIT 30.1 % (40.0-51.0); HEMOGLOBIN 10.4 g/dL (13.7-17.5); LEFT SHIFT FLG 0 (0-99); LIPEMIA HEMOLYSIS FLAG 90 (0-99); MEAN CELL HEMOGLOBIN CONCENTR. 34.6 g/dL (32.4-36.7); MEAN CELL VOLUME 89.9 fL (81.5-99.8); MEAN PLATELET VOLUME 10.5 fL (8.7-11.7); PLATELET CLUMPS FLAG 20 (0-99); PLATELET COUNT 77 10^3/uL (150-400); RED BLOOD CELL COUNT 3.35 10^6/uL (4.40-6.38); RED CELL DISTRIBUTION WIDTH 15.6 % (11.5-15.2)
--- NOTE | 2016-12-14 08:51 | SOAPPROG ---
SOAP Progress Note Assessment/Plan: Assessment: POD#3 CABG x 4 (COY-LAD, SV-OM1, SV sequentially to PDA and PLR), prophylactic AtriClip ligation SITA, EVH LLE Sx severe CAD w preserved LV systolic fx - s/p CABG4. Stable early postop course. No tachyarrhythmias or backup pacing. Intermittent pressor support post dialysis. Secondary prevention with ASA, BB when appropriate, and statin. ESRD/PCKD - HD 3x weekly. LUE AVF. Dialyzed intraop. Postop HD/UF per nephrology. Acute on chronic anemia with thrombocytopenia - Preop H/H 8.5/25.1, platelets 109, receiving Epo w HD qweek. Expected surgical loss repleted with 3u PRBC. Addtl 2u PRBC for downward drift in H/H with low CVP. No evidence active bleeding. Follow. Suspected COPD - Longstanding tobacco abuse, 1/2 to 1 ppd x 50yrs, successfully quitting for 2yrs s/p (remote) IMI. Extubated without incident. Minimal suppl O2 req. Nebs, mucolytics prn. Motivated to quit smoking "for good". Cessation aids declined. Plan: Levo 1 mcg prn SBP < 90 post dialysis. Remove mediastinal hubert and TCPW. Keep pleural hubert for at least one more day. Tx to PCU this afternoon. 12/14/16 08:49 Subjective: Feels well. Less coughing. Tolerating light activity without dizziness. Adequate analgesia. No acute concerns. Objective: Vital Signs Temp Pulse Resp BP Pulse Ox 36.8 C 85 22 H 131/52 H 97 12/14/16 06:00 12/14/16 06:00 12/14/16 06:00 12/14/16 06:00 12/14/16 06:00 Laboratory Results 12/14/16 05:39 12/14/16 05:39 12/13/16 12/14/16 12/15/16 05:59 05:59 05:59 Intake Total 2375 2521 Output Total 1280 830 Balance 1095 1691 PT 15.5 SEC (12.0-15.0) H 12/08/16 03:49 INR 1.23 (0.83-1.16) H 12/08/16 03:49 Unable to durably wean off of levo yest. Drip stopped early this am for SBPs 130s. Holding CVPs 10-12. Levo on standby for HD today. HR and rhythm stable. Min suppl O2 req. Mediastinal drain at removal criteria. Pleural output still too high to pull. Appropriate post transfusion boost H/H, plt. Physical Exam - Physical Exam General Appearance: alert, no apparent distress Respiratory: lungs clear (grossly), rhonchi (left sided), other (blakes x 2 to bulb suction, serosang drainage) Cardiac/Chest: regular rate, rhythm, other (Sternum grossly stable. Sternotomy and LLE venotomy CDI. Vwires intact.) Abdomen: normal bowel sounds, non-tender, soft Skin: warm/dry Extremities: swelling (1+ dependent) ICD10 Worksheet Patient Problems: Problems Problem Status Onset Chest pain Acute Elevated troponin Acute End stage renal disease Acute
[2016-12-14] MEDS: ATORVASTATIN CALCIUM 40 MG TAB PO SCH (08:52)
[2016-12-14] MEDS: guaiFENesin 600 MG TAB.ER PO SCH ×2 (08:52→20:47)
[2016-12-14] MEDS: SENNOSIDES/DOCUSATE SODIUM TAB PO SCH ×2 (08:52→20:47)
[2016-12-14] MEDS: ASPIRIN 81 MG CHEWABLE TAB PO SCH (08:52)
[2016-12-14] MEDS: PANTOPRAZOLE SODIUM 40 MG TAB PO SCH (08:52)
[2016-12-14] MEDS: LANTHANUM CARBONATE 1000 MG PO SCH ×3 (08:53→18:47)
--- NOTE | 2016-12-14 10:52 | SOAPPROG ---
SOAP Progress Note Assessment/Plan: Assessment/Plan: ESRD: on HD MWF. - Pt seen getting HD this am. - Next HD on Wednesday per routine. Hypervolemia: will try to pull some fluid on HD today as BP tolerates. Hypotension: pt continues to have some soft BP, although better this am. Antihypertensives on hold, pressors off, will continue to monitor. Anemia: Hgb at goal at 10.4, will continue to monitor. Subjective: No acute events overnight. Pt now off pressors, SBP in 130s while on HD this am. He notes that he still has some pain with coughing but mostly controlled. He is having some swelling and notes that he has some dyspnea on any kind of exertion. Objective: Vital Signs Temp Pulse Resp BP Pulse Ox 36.7 C 78 20 138/68 H 96 12/14/16 07:00 12/14/16 10:00 12/14/16 10:00 12/14/16 10:00 12/14/16 10:00 Laboratory Results 12/14/16 05:39 12/14/16 05:39 12/13/16 12/14/16 12/15/16 05:59 05:59 05:59 Intake Total 2375 2521 Output Total 1280 830 90 Balance 1095 1691 -90 PT 15.5 SEC (12.0-15.0) H 12/08/16 03:49 INR 1.23 (0.83-1.16) H 12/08/16 03:49 General: alert and oriented, no acute distress Eyes; EOMI, PERRL OP: Clear CV: RRR Resp: nonlabored respirations on NC Abd: Soft, NT Ext: +1 edema BLE Neuro: CN II-XII grossly intact, no asterixis Psych: cooperative, appropriate mood and affect Access: LUE AVF cannulated ICD10 Worksheet Patient Problems: Problems Problem Status Onset Chest pain Acute Elevated troponin Acute End stage renal disease Acute
[2016-12-14] MEDS: CINACALCET HCL 30 MG TAB PO SCH (14:00)
[2016-12-14] MEDS: POLYETHYLENE GLYCOL 3350 17 GM PKT PO PRN (20:46)
[2016-12-14] MEDS: METOPROLOL TARTRATE 25 MG TAB PO SCH (20:47)
[2016-12-14] MEDS ORDERED: ALBUMIN 5% 250 ML IV PRN (21:40)
[2016-12-15] MEDS: oxyCODONE IR 5 MG TAB PO PRN ×4 (02:00→22:11)
[2016-12-15] MEDS: LACTULOSE 20 GM/30 ML UDCUP PO PRN (06:12)
[2016-12-15 06:37] LABS: ALBUMIN 2.6 g/dL (3.5-5.0); ANION GAP 9 mEq/L (8-16); CARBON DIOXIDE 28 mEq/l (22-31); CHLORIDE 96 mEq/L (97-110); CREATININE 5.1 mg/dL (0.7-1.3); GLOMERULAR FILTRATION RATE 11; GLUCOSE 88 mg/dL (70-100); POTASSIUM 4.2 mEq/L (3.5-5.2); SODIUM 133 mEq/L (134-144)
--- NOTE | 2016-12-15 07:54 | SOAPPROG ---
SOAP Progress Note Assessment/Plan: POD#4 CABG x 4 (COY-LAD, SV-OM1, SV sequentially to PDA and PLR), prophylactic AtriClip ligation SITA, EVH LLE Sx severe CAD w preserved LV systolic fx - s/p CABG4. Stable early postop course. No tachyarrhythmias or backup pacing. Intermittent pressor support post dialysis. Secondary prevention with ASA and statin. BB contraindicated due to recent low BP. ESRD/PCKD - HD 3x weekly. LUE AVF. Dialyzed intraop. Postop HD/UF per nephrology. Acute on chronic anemia with thrombocytopenia - Preop H/H 8.5/25.1, platelets 109, receiving Epo w HD qweek. Expected surgical loss repleted with 3u PRBC. Addtl 2u PRBC for downward drift in H/H with low CVP. No evidence active bleeding. Follow. Post-op PAF - Rate controlled without BB/amiodarone. Eliquis started for thromboprophylaxis. Suspected COPD - Longstanding tobacco abuse, 1/2 to 1 ppd x 50yrs, successfully quitting for 2yrs s/p (remote) IMI. Extubated without incident. Minimal suppl O2 req. Nebs, mucolytics prn. Motivated to quit smoking "for good". Cessation aids declined. Subjective: Feels well. Legs are swollen. Denies CP/SOB. Objective: Vital Signs Temp Pulse Resp BP Pulse Ox 36.4 C 77 14 118/70 96 12/15/16 04:00 12/15/16 04:00 12/15/16 04:00 12/15/16 04:00 12/15/16 04:00 Laboratory Results 12/15/16 06:00 12/15/16 06:00 12/14/16 12/15/16 12/16/16 05:59 05:59 05:59 Intake Total 2521 1495 Output Total 830 735 Balance 1691 760 PT 15.5 SEC (12.0-15.0) H 12/08/16 03:49 INR 1.23 (0.83-1.16) H 12/08/16 03:49 Physical Exam - Physical Exam General Appearance: WD/WN, alert, no apparent distress EENT: normal ENT inspection Neck: normal inspection Respiratory: No respiratory distress Cardiac/Chest: irregularly irregular Abdomen: non-tender, soft, No distended Skin: normal color, warm/dry Extremities: pedal edema Neuro/Psych: no motor/sensory deficits, alert, normal mood/affect, oriented x 3 ICD10 Worksheet Patient Problems: Problems Problem Status Onset Acute blood loss anemia Acute Chest pain Acute Chronic Disease Mgmt/Transitional Care Acute Elevated troponin Acute End stage renal disease Acute Postoperative atrial fibrillation Acute S/P CABG x 4 Acute Anemia in chronic kidney disease (CKD) Chronic CAD, multiple vessel Chronic
[2016-12-15] MEDS: SENNOSIDES/DOCUSATE SODIUM TAB PO SCH ×2 (08:03→22:11)
[2016-12-15] MEDS: PANTOPRAZOLE SODIUM 40 MG TAB PO SCH (08:06)
[2016-12-15] MEDS: guaiFENesin 600 MG TAB.ER PO SCH ×2 (08:06→22:11)
[2016-12-15] MEDS: ASPIRIN 81 MG CHEWABLE TAB PO SCH (08:06)
[2016-12-15] MEDS: ATORVASTATIN CALCIUM 40 MG TAB PO SCH (08:06)
[2016-12-15] MEDS: LANTHANUM CARBONATE 1000 MG PO SCH ×3 (08:08→17:48)
[2016-12-15] MEDS: CINACALCET HCL 30 MG TAB PO SCH (08:08)
[2016-12-15] MEDS: METOPROLOL TARTRATE 25 MG TAB PO SCH (08:12)
[2016-12-15] MEDS: APIXABAN 5 MG TAB PO SCH ×2 (10:41→22:11)
--- NOTE | 2016-12-15 11:36 | SOAPPROG ---
POLLO Progress Note Assessment/Plan: Assessment: 1. s/p CABG Doing well overall. 2. CBC Hg better. On epo. 3. ESRD HD tomorrow 4. Constipation May be resolved as of this am. 12/15/16 11:35 Subjective: In good spirits Objective: Vital Signs Temp Pulse Resp BP Pulse Ox 36.9 C 86 17 130/81 H 95 12/15/16 08:00 12/15/16 08:12 12/15/16 08:00 12/15/16 08:12 12/15/16 08:00 Laboratory Results 12/15/16 06:00 12/15/16 06:00 12/14/16 12/15/16 12/16/16 05:59 05:59 05:59 Intake Total 2521 1495 Output Total 830 735 80 Balance 1691 760 -80 PT 15.5 SEC (12.0-15.0) H 12/08/16 03:49 INR 1.23 (0.83-1.16) H 12/08/16 03:49 Physical Exam - Physical Exam General Appearance: no apparent distress Respiratory: lungs clear, other (bronchial BS in bases) Cardiac/Chest: regular rate, rhythm Extremities: pedal edema Neuro/Psych: oriented x 3 ICD10 Worksheet Patient Problems: Problems Problem Status Onset Acute blood loss anemia Acute Chest pain Acute Chronic Disease Mgmt/Transitional Care Acute Elevated troponin Acute End stage renal disease Acute Postoperative atrial fibrillation Acute S/P CABG x 4 Acute Anemia in chronic kidney disease (CKD) Chronic CAD, multiple vessel Chronic
[2016-12-16] MEDS: LACTULOSE 20 GM/30 ML UDCUP PO PRN (05:29)
[2016-12-16] MEDS: oxyCODONE IR 5 MG TAB PO PRN ×3 (05:30→23:09)
[2016-12-16 05:55] LABS: % IMMATURE GRANULYOCYTES 0.5 % (0.0-1.1); ABSOLUTE IMMATURE GRANULOCYTES 0.03 10^3/uL (0.00-0.10); ADD DIFF? NO; ADD MORPH? NO; ADD SCAN? NO; ATYPICAL LYMPHOCYTE FLAG 0 (0-99); FRAGMENT RBC FLAG 0 (0-99); HEMATOCRIT 29.8 % (40.0-51.0); HEMOGLOBIN 9.8 g/dL (13.7-17.5); LEFT SHIFT FLG 0 (0-99); LIPEMIA HEMOLYSIS FLAG 80 (0-99); MEAN CELL HEMOGLOBIN 30.6 pg (27.9-34.1); MEAN CELL HEMOGLOBIN CONCENTR. 32.9 g/dL (32.4-36.7); MEAN CELL VOLUME 93.1 fL (81.5-99.8); MEAN PLATELET VOLUME 10.6 fL (8.7-11.7); PLATELET CLUMPS FLAG 0 (0-99); PLATELET COUNT 89 10^3/uL (150-400); RED CELL DISTRIBUTION WIDTH 14.8 % (11.5-15.2)
[2016-12-16 06:07] LABS: ALBUMIN 2.6 g/dL (3.5-5.0); ANION GAP 14 mEq/L (8-16); CALCIUM 7.6 mg/dL (8.5-10.4); CARBON DIOXIDE 23 mEq/l (22-31); CHLORIDE 97 mEq/L (97-110); CREATININE 6.6 mg/dL (0.7-1.3); GLOMERULAR FILTRATION RATE 8; GLUCOSE 86 mg/dL (70-100); POTASSIUM 4.5 mEq/L (3.5-5.2); SODIUM 134 mEq/L (134-144)
--- NOTE | 2016-12-16 07:51 | SOAPPROG ---
SOAP Progress Note Assessment/Plan: Assessment: POD#5 CABG x 4 (COY-LAD, SV-OM1, SV sequentially to PDA and PLR), prophylactic AtriClip ligation SITA, EVH LLE Sx severe CAD w preserved LV systolic fx - s/p CABG4. Stable early postop course. No tachyarrhythmias or backup pacing. Intermittent pressor support post dialysis. Secondary prevention with ASA, BB if/when appropriate, and statin. ESRD/PCKD - HD 3x weekly. LUE AVF. Dialyzed intraop. Postop HD/UF per nephrology. Acute on chronic anemia with thrombocytopenia - Preop H/H 8.5/25.1, platelets 109, receiving Epo w HD qweek. Expected surgical loss repleted with 3u PRBC. Addtl 2u PRBC for downward drift in H/H with low CVP. No evidence active bleeding. Follow. Suspected COPD - Longstanding tobacco abuse, 1/2 to 1 ppd x 50yrs, successfully quitting for 2yrs s/p (remote) IMI. Extubated without incident. Minimal suppl O2 req. Nebs, mucolytics prn. Motivated to quit smoking "for good". Cessation aids declined. Plan: Remove pleural hubert. Dispo - Consider home after dialysis. 12/16/16 07:49 Subjective: Feels ok. No acute concerns. Looking forward to getting drain out. Wouldn't mind going home today after dialysis. Objective: Vital Signs Temp Pulse Resp BP Pulse Ox 36.8 C 78 20 124/73 H 98 12/16/16 07:23 12/16/16 07:23 12/16/16 07:23 12/16/16 07:23 12/16/16 07:23 Laboratory Results 12/16/16 05:40 12/16/16 05:40 12/15/16 12/16/16 12/17/16 05:59 05:59 05:59 Intake Total 1495 1280 Output Total 735 500 Balance 760 780 PT 15.5 SEC (12.0-15.0) H 12/08/16 03:49 INR 1.23 (0.83-1.16) H 12/08/16 03:49 HR, rhythm and BP stable. Min suppl O2 req. CXR-> no undrained left pl eff CTOP remains somewhat elevated but is beginning to taper. Positive fluid balance. - Pending Discharge Pending Discharge Within 24 Hours: Yes Pending Discharge Date: 12/17/16 Pending Discharge Time: 11:00 Physical Exam - Physical Exam General Appearance: alert, no apparent distress Respiratory: lungs clear (grossly), other (left pleural drain to bulb suction, clear serous drainage.) Cardiac/Chest: regular rate, rhythm, other (Sternum grossly stable. Sternotomy and LLE venotomy CDI) Abdomen: non-tender, soft Skin: warm/dry Extremities: swelling (1+ dependent) ICD10 Worksheet Patient Problems: Problems Problem Status Onset Acute blood loss anemia Acute Chest pain Acute Chronic Disease Mgmt/Transitional Care Acute Elevated troponin Acute End stage renal disease Acute Postoperative atrial fibrillation Acute S/P CABG x 4 Acute Anemia in chronic kidney disease (CKD) Chronic CAD, multiple vessel Chronic
[2016-12-16] MEDS: LANTHANUM CARBONATE 1000 MG PO SCH ×3 (08:25→18:15)
[2016-12-16] MEDS: PANTOPRAZOLE SODIUM 40 MG TAB PO SCH (09:35)
[2016-12-16] MEDS: guaiFENesin 600 MG TAB.ER PO SCH ×2 (09:35→22:25)
[2016-12-16] MEDS: APIXABAN 5 MG TAB PO SCH ×2 (09:35→22:25)
[2016-12-16] MEDS: ATORVASTATIN CALCIUM 40 MG TAB PO SCH (09:36)
[2016-12-16] MEDS: ASPIRIN 81 MG CHEWABLE TAB PO SCH (09:36)
[2016-12-16] MEDS: CINACALCET HCL 30 MG TAB PO SCH (09:36)
[2016-12-16] MEDS: SENNOSIDES/DOCUSATE SODIUM TAB PO SCH ×2 (09:37→22:25)
--- NOTE | 2016-12-16 10:08 | SOAPPROG ---
RANCHOAP Progress Note Assessment/Plan: Assessment: 1. ESRD. HD later today on MWF schedule. 2. CAD. s/p 4V CABG POD #5. Recovering well. 3. Dispo. Likely will d/c after dialysis today. Plan: 12/09/16 14:50 12/09/16 15:00 12/16/16 10:07 Subjective: Doing great. Occasionally has chest pains after coughing. Objective: Vital Signs Temp Pulse Resp BP Pulse Ox 36.8 C 78 20 124/73 H 98 12/16/16 07:23 12/16/16 07:23 12/16/16 07:23 12/16/16 07:23 12/16/16 07:23 Laboratory Results 12/16/16 05:40 12/16/16 05:40 12/15/16 12/16/16 12/17/16 05:59 05:59 05:59 Intake Total 1495 1280 Output Total 735 500 90 Balance 760 780 -90 PT 15.5 SEC (12.0-15.0) H 12/08/16 03:49 INR 1.23 (0.83-1.16) H 12/08/16 03:49 Comfortable wm in chair RRR, no m/g/r Midline sternal incision well healed, no e/e CTAB Abdom soft, nt No edema LUE avf ICD10 Worksheet Patient Problems: Problems Problem Status Onset Chronic Disease Mgmt/Transitional Care Acute Postoperative atrial fibrillation Acute Anemia in chronic kidney disease (CKD) Chronic Acute blood loss anemia Acute S/P CABG x 4 Acute CAD, multiple vessel Chronic Chest pain Acute End stage renal disease Acute Elevated troponin Acute
[2016-12-16] MEDS: LIDOCAINE/PRILOCAINE 1 EACH CRTUBE TP PRN (11:48)
[2016-12-16] MEDS: POLYETHYLENE GLYCOL 3350 17 GM PKT PO PRN (23:12)
[2016-12-17 06:39] LABS: % IMMATURE GRANULYOCYTES 0.5 % (0.0-1.1); ABSOLUTE IMMATURE GRANULOCYTES 0.03 10^3/uL (0.00-0.10); ADD DIFF? NO; ADD MORPH? NO; ADD SCAN? NO; ATYPICAL LYMPHOCYTE FLAG 0 (0-99); FRAGMENT RBC FLAG 0 (0-99); HEMATOCRIT 30.9 % (40.0-51.0); HEMOGLOBIN 10.5 g/dL (13.7-17.5); LEFT SHIFT FLG 0 (0-99); LIPEMIA HEMOLYSIS FLAG 90 (0-99); MEAN CELL HEMOGLOBIN 31.3 pg (27.9-34.1); MEAN PLATELET VOLUME 10.5 fL (8.7-11.7); PLATELET CLUMPS FLAG 0 (0-99); PLATELET COUNT 109 10^3/uL (150-400); RED BLOOD CELL COUNT 3.36 10^6/uL (4.40-6.38); RED CELL DISTRIBUTION WIDTH 14.7 % (11.5-15.2)
[2016-12-17 07:31] LABS: ALBUMIN 2.7 g/dL (3.5-5.0); ANION GAP 11 mEq/L (8-16); CALCIUM 8.1 mg/dL (8.5-10.4); CARBON DIOXIDE 26 mEq/l (22-31); CHLORIDE 98 mEq/L (97-110); CREATININE 5.6 mg/dL (0.7-1.3); GLOMERULAR FILTRATION RATE 10; GLUCOSE 92 mg/dL (70-100); POTASSIUM 4.3 mEq/L (3.5-5.2); SODIUM 135 mEq/L (134-144)
--- NOTE | 2016-12-17 08:06 | SOAPPROG ---
SOAP Progress Note Assessment/Plan: POD#6 CABG x 4 (COY-LAD, SV-OM1, SV sequentially to PDA and PLR), prophylactic AtriClip ligation SITA, EVH LLE Sx severe CAD w preserved LV systolic fx - s/p CABG4. Stable. Secondary prevention with ASA and statin. BB contraindicated due to low BP. ESRD/PCKD - LUE AVF. Dialyzed intraop. HD M-W-. Acute on chronic anemia with thrombocytopenia - Stable. Post-op PAF - SR this AM. Eliquis for thromboprophylaxis. Suspected COPD - Longstanding tobacco abuse. Cessation aids declined. States he' s done smoking for good. 12/17/16 08:50 Subjective: Ready to go home today. Objective: Vital Signs Temp Pulse Resp BP Pulse Ox 36.9 C 76 20 138/91 H 92 12/17/16 04:00 12/17/16 04:08 12/17/16 04:00 12/17/16 04:00 12/17/16 04:08 Laboratory Results 12/17/16 06:20 12/17/16 06:20 12/16/16 12/17/16 12/18/16 05:59 05:59 05:59 Intake Total 1280 700 Output Total 500 210 Balance 780 490 PT 15.5 SEC (12.0-15.0) H 12/08/16 03:49 INR 1.23 (0.83-1.16) H 12/08/16 03:49 Physical Exam - Physical Exam General Appearance: WD/WN, alert, no apparent distress EENT: normal ENT inspection Neck: normal inspection Respiratory: No respiratory distress Cardiac/Chest: regular rate, rhythm Abdomen: non-tender, soft, No distended Skin: normal color, warm/dry Extremities: pedal edema Neuro/Psych: no motor/sensory deficits, alert, normal mood/affect, oriented x 3 ICD10 Worksheet Patient Problems: Problems Problem Status Onset Acute blood loss anemia Acute Chest pain Acute Chronic Disease Mgmt/Transitional Care Acute Elevated troponin Acute End stage renal disease Acute Postoperative atrial fibrillation Acute S/P CABG x 4 Acute Anemia in chronic kidney disease (CKD) Chronic CAD, multiple vessel Chronic
[2016-12-17] MEDS: LANTHANUM CARBONATE 1000 MG PO SCH ×2 (08:16→12:39)
--- NOTE | 2016-12-17 08:22 | SOAPPROG ---
POLLO Progress Note Assessment/Plan: Assessment:Plan: ESRD-Stable Hd yesterday -plan for Hd tomorrow as outpatient -no new issues Access-remains difficult to cannulate -outpatient clinic will take over from here Anemia-Hct 30 -at target for ESRD patient Edema-ultrafiltration as tolerated Dispo-patient states he is going home today 12/17/16 08:19 Subjective: stable overnite Objective: Vital Signs Temp Pulse Resp BP Pulse Ox 36.9 C 76 20 138/91 H 92 12/17/16 04:00 12/17/16 04:08 12/17/16 04:00 12/17/16 04:00 12/17/16 04:08 Laboratory Results 12/17/16 06:20 12/17/16 06:20 12/16/16 12/17/16 12/18/16 05:59 05:59 05:59 Intake Total 1280 700 Output Total 500 210 Balance 780 490 PT 15.5 SEC (12.0-15.0) H 12/08/16 03:49 INR 1.23 (0.83-1.16) H 12/08/16 03:49 Physical Exam - Physical Exam General Appearance: WD/WN, alert, no apparent distress EENT: normal ENT inspection Neck: normal inspection Respiratory: lungs clear, other (coarse breath sounds) Cardiac/Chest: regular rate, rhythm, No diastolic murmur, No systolic murmur, No friction rub Abdomen: normal bowel sounds Extremities: swelling (into thighs, L worse than R) ICD10 Worksheet Patient Problems: Problems Problem Status Onset Acute blood loss anemia Acute Chest pain Acute Chronic Disease Mgmt/Transitional Care Acute Elevated troponin Acute End stage renal disease Acute Postoperative atrial fibrillation Acute S/P CABG x 4 Acute Anemia in chronic kidney disease (CKD) Chronic CAD, multiple vessel Chronic
[2016-12-17] MEDS: SENNOSIDES/DOCUSATE SODIUM TAB PO SCH (08:27)
[2016-12-17] MEDS: guaiFENesin 600 MG TAB.ER PO SCH (08:28)
[2016-12-17] MEDS: ATORVASTATIN CALCIUM 40 MG TAB PO SCH (08:28)
[2016-12-17] MEDS: oxyCODONE IR 5 MG TAB PO PRN (08:28)
[2016-12-17] MEDS: APIXABAN 5 MG TAB PO SCH (08:29)
[2016-12-17] MEDS: PANTOPRAZOLE SODIUM 40 MG TAB PO SCH (08:29)
[2016-12-17] MEDS: ASPIRIN 81 MG CHEWABLE TAB PO SCH (08:29)
[2016-12-17] MEDS: POLYETHYLENE GLYCOL 3350 17 GM PKT PO PRN (08:29)
[2016-12-17] MEDS: CINACALCET HCL 30 MG TAB PO SCH (08:30)
--- NOTE | 2016-12-17 10:31 | PDDCSUM ---
Discharge Summary Discharge Summary: ADMISSION DATE: 12/08/16 DISCHARGE DATE: 12/17/16 DISCHARGE DX: 1. Unstable angina with three-vessel coronary artery atherosclerosis 2. COPD secondary to ongoing cigarette abuse 3. ESRD on hemodialysis 4. Hypertension 5. Paroxysmal atrial fibrillation PROCEDURES 12/11/16, Hamilton Hernandes: 1. CABGx4 (COY-LAD, SVG-OM1, sequential SVG-PL-PDA), AtriClip SITA HOSPITAL COURSE BY PROBLEM LIST 1. Unstable angina with three-vessel CAD stable post-operative course. Aspirin and statin prescribed for secondary prevention. Beta-radha held due to low SBP. 2. COPD secondary to ongoing cigarette abuse cessation aids offered but patient declined. Patient committed to quit. 3. EDRD on HD HD to continue 3x/week as per pre-op schedule. 4. Hypertension ACEi and calcium channel radha discontinued as patients SBP was on the lower side. Plan for channel sales director/PCP/community coordinator to restart as needed. 5. Paroxysmal atrial fibrillatioin rate controlled without medications. Eliquis started for thromboprophylaxis duration dependent on rhythm. CONDITION Good DISPOSITION Home, self-care ACTIVITY Pt was instructed on sternal precautions, activity limitations, and which problems to call [facility] with. Please see Discharge Plan in chart for specifics. D/C MEDICATIONS 1. Cinacalcet HCl [Sensipar (*)] 30 mg PO DAILY 2. Lanthanum Carbonate [Fosrenol] 1,000 mg PO TIDMEAL 3. Lidocaine/Prilocaine [Emla Cream] 1 albert TP MOWEFR PRN 4. Acetaminophen [Tylenol 325mg (*)] 650 mg PO Q4HRS PRN 5. Apixaban [Eliquis] 5 mg PO BID 6. Aspirin [Aspirin 81mg (*)] 81 mg PO DAILY 7. Atorvastatin Calcium [Lipitor 40 mg (*)] 40 mg PO DAILY 8. Sennosides/Docusate Sodium [Senokot-S] 1 - 2 tab PO BID 9. oxyCODONE IR [Oxycodone Ir (*)] 5 mg PO Q6HRS PRN PENDING STUDIES/LABS 1. CXR - prior to surgical follow-up F/U APPOINTMENTS 1. Hamilton Hernandes - 12/29/16, 9:45 AM 2. Pedro Maldonado (nephrology) - as per HD schedule 3. Eloy Robin - to be determined at surgical follow-up
[2016-12-17 12:51] VITALS: BP 139/85; PULSE 76; RESP 18; TEMP 98.2
[2016-12-17] MEDS: EPOETIN ALFA 10,000 UNIT/ML VIAL SC SCH (13:20)
[2016-12-17 14:43] VITALS: O2SAT 93
--- NOTE | 2016-12-17 14:49 | ECHO ---
[id number] + + [id number] : : [place] [id number] : : [phone] + + Adult Echocardiographic Report + ------+ :Name: ARGENTINA WASHINGTON JStudy Date: 12/17/2016 07:37 AM BP: 138/91 mmHg : : Hospital Admission Number: [id number] Locatio n: 208: :: 1950 Gender: Male Height: 70 in : :Age: 66 yrs Race: WH Weight: 219 lb : :Reason For Study: hypotension : : BSA: 2.2 meters 2 : :History: S/P CABG : + ------+ MMode/2D Measurements \T\ Calculations LVLd ap4: 9.0 cm SV(MOD-sp4): 87.0 ml EDV(MOD-sp4): 153.0 ml LVLs ap4: 7.4 cm ESV(MOD-sp4): 66.0 ml EF(MOD-sp4): 56.9 % Normal Measurement Values: + + :LVIDd (3.5-5.7cm) IVSd (0.6-1.1cm) LVPWd (0.6-1.1cm) Aortic Root (2.0-3.7cm)Left Atrium (1.5-4.0cm): :LV Vol(d) (76-115ml) LV Vol(s) (29-48ml) Ejec Fraction (50-65%)PV Mohamud (0.6- 1.2m/s) TV Mohamud (0.4-1.0m/s) : :MV E Mohamud (0.8-1.0m/s)MV A Mohamud (0.3-1.0m/s)LVOT Mohamud (0.7-1.2m/s) Asc Ao Mohamud ( 0.9-1.8m/s) : + + Left Ventricle Left ventricular systolic function is normal. Ejection Fraction = 55%. Pericardium/Pleural trivial pericardial effusion. Conclusion Limited echocardiogram due to persistent low BP s/p CABG; assess for pericardial effusion. Left ventricular systolic function is normal. Ejection Fraction = 55%. trivial pericardial effusion. Parodoxical septal motion consistent with prior bypass or open heart surgery. Final Reading Physician: Anjelica Santoro signed on 12/17/2016 02:47 PM Ordering Physician: Liz Coy Performed By: Audrey Yang
== END 2016-12-17 16:08 | disposition home or self-care (01) | DRG 233 ==
LOC: F2W 23:26 → OBSVTOIN 12-08 12:34 → F2N 12-11 12:11 → F2W 12-14 17:12
PROVIDERS: ADMIT Thoracic Surgery (Cardiothoracic Vascular Surgery); ATTEND Internal Medicine
PROC: B2151ZZ Fluoroscopy of Left Heart using Low Osmolar Contrast (ICD-10-PCS; 2016-12-08)
PROC: 4A023N7 Measurement of Cardiac Sampling and Pressure, Left Heart, Percutaneous Approach (ICD-10-PCS; 2016-12-08)
PROC: B2111ZZ Fluoroscopy of Multiple Coronary Arteries using Low Osmolar Contrast (ICD-10-PCS; 2016-12-08)
PROC: 5A1D60Z (ICD-10-PCS; 2016-12-09)
PROC: 02L70CK Occlusion of Left Atrial Appendage with Extraluminal Device, Open Approach (ICD-10-PCS; principal; 2016-12-11 12:45)
PROC: 5A1221Z Performance of Cardiac Output, Continuous (ICD-10-PCS; principal; 2016-12-11 12:45)
PROC: 021209W Bypass Coronary Artery, Three Arteries from Aorta with Autologous Venous Tissue, Open Approach (ICD-10-PCS; principal; 2016-12-11 12:45)
PROC: 02100Z9 Bypass Coronary Artery, One Artery from Left Internal Mammary, Open Approach (ICD-10-PCS; principal; 2016-12-11 12:45)
PROC: 06BQ4ZZ Excision of Left Saphenous Vein, Percutaneous Endoscopic Approach (ICD-10-PCS; principal; 2016-12-11 12:45)
PROC: 30233N1 Transfusion of Nonautologous Red Blood Cells into Peripheral Vein, Percutaneous Approach (ICD-10-PCS; 2016-12-13)
DX: I25.110 Atherosclerotic heart disease of native coronary artery with unstable angina pectoris (principal); I12.0 Hypertensive chronic kidney disease with stage 5 chronic kidney disease or end stage renal disease; N18.6 End stage renal disease; D62 Acute posthemorrhagic anemia; I21.3 ST elevation (STEMI) myocardial infarction of unspecified site; J44.9 Chronic obstructive pulmonary disease, unspecified; I48.0 Paroxysmal atrial fibrillation; D63.1 Anemia in chronic kidney disease; Z99.2 Dependence on renal dialysis; Z72.0 Tobacco use; Z96.641 Presence of right artificial hip joint; E66.9 Obesity, unspecified
CPT/HCPCS: 82947-QW; 97116-GP; 97162-GP; 97165-GO; 97535-GO; A9500; C1760; G0378; G8978-GP-CJ; G8979-GP-CI; G8987-GO-CL; G8988-GO-CJ; J0153; J0282; J0360; J0583; J0690; J0885; J1100; J1170; J1265; J1644; J1815; J2001; J2150; J2250; J2260; J2370; J2405; J2440; J2704; J2720; J2765; J2785; J2930; J3010; J7060; P9016; P9041; Q9967

== ENCOUNTER 2016-12-21 05:40 | Emergency (ER) | payer OTHER ==
--- NOTE | 2016-12-21 05:51 | CPEKG ---
Heart Rate: 81 RR Interval: 741 P-R Interval: 228 QRSD Interval: 96 QT Interval: 344 QTC Interval: 400 P Barnes: 59 QRS Barnes: 7 T Wave Barnes: -17 EKG Severity - ABNORMAL ECG - EKG Impression: SINUS RHYTHM EKG Impression: FIRST DEGREE AV BLOCK EKG Impression: LOW VOLTAGE IN FRONTAL LEADS EKG Impression: BORDERLINE T ABNORMALITIES, INFERIOR LEADS Electronically Signed By: Ramonita Pineda 21-Dec-2016 22:46:27
[2016-12-21 05:53] VITALS: TEMP 98.4
[2016-12-21 06:10] LABS: % IMMATURE GRANULYOCYTES 0.9 % (0.0-1.1); ABSOLUTE IMMATURE GRANULOCYTES 0.07 10^3/uL (0.00-0.10); ADD DIFF? NO; ADD MORPH? NO; ADD SCAN? NO; ATYPICAL LYMPHOCYTE FLAG 80 (0-99); FRAGMENT RBC FLAG 0 (0-99); HEMATOCRIT 39.2 % (40.0-51.0); LEFT SHIFT FLG 0 (0-99); LIPEMIA HEMOLYSIS FLAG 80 (0-99); MEAN CELL HEMOGLOBIN 30.5 pg (27.9-34.1); MEAN CELL HEMOGLOBIN CONCENTR. 33.2 g/dL (32.4-36.7); MEAN PLATELET VOLUME 9.5 fL (8.7-11.7); PLATELET CLUMPS FLAG 0 (0-99); PLATELET COUNT 197 10^3/uL (150-400); RED BLOOD CELL COUNT 4.26 10^6/uL (4.40-6.38); RED CELL DISTRIBUTION WIDTH 14.6 % (11.5-15.2)
--- NOTE | 2016-12-21 06:22 | EDPHY ---
H & P Stated Complaint: incision pain, bone pain d/t surgery, and inner chest cavity pain - Medical/Surgical History Hx Asthma: No Hx Chronic Respiratory Disease: Yes Hx Diabetes: No Hx Cardiac Disease: Yes Hx Renal Disease: Yes Hx Cirrhosis: No Hx Alcoholism: No Hx HIV/AIDS: No Hx Splenectomy or Spleen Trauma: No Other PMH: PMHx: Kidney issues- Dialysis MWF, HTN, hernated disc, arthitis. PSHx: stent placement, L knee surgery, total R hip replacment, 4 vessel CABG 12/14 - Social History Smoking Status: Heavy smoker <Ciro Miranda - Last Filed: 12/21/16 07:29> <Leena Mills - Last Filed: 12/21/16 16:29> Time Seen by Provider: 12/21/16 05:49 HPI/ROS: Chief Complaint: Chest pain, back cramps HPI: 66-year-old male who is 10 days status post CABG x4 by Dr. Hernandes, patient went home 4 days ago. Patient states that he has had persistent pain in his sternum that he is unable to control with oral pain medications. No new fevers or chills. No new chest pain. Does have some exertion normal chest pain but this is unchanged from his discharge. He is have a history of end-stage renal disease gets his dialysis Wednesday. Was last dialyzed Wednesday. No abdominal pain. No nausea or vomiting. States he woke this morning with his pain in his sternum and cramping in his back. He has got increased stressors at home. Does not have help at home that he feels he needs and is concerned that he cannot get assistance in the middle of the night. He is taking his oxycodone XR every 3-5 hours. ROS: 10 point Review of Systems is negative except as noted in the HPI. PMH: Coronary artery disease status post CABG x4, end-stage renal disease on hemodialysis Wednesday, polycystic kidney disease, hypertension, atrial fibrillation Medications: Eliquis, aspirin, foster renal, atorvastatin, Sensipar, oxycodone , lisinopril Allergies: No known drug allergies Social History: Recent former smoking, no alcohol, daily marijuana Family History: non-contributory Physical Exam: Gen: Awake, Alert, No Distress HEENT: Nose: no rhinorrhea Eyes: PERRLA, EOMI Mouth: Moist mucosa Neck: Supple, no JVD Chest: Midline sternotomy scar is intact, no discharge or erythema, there is sternal tenderness to palpation, lungs are diminished in the bases left greater than right, Heart: S1, S2 normal, no murmur Abd: Soft, non-tender, no guarding Back: no CVA tenderness, no midline tenderness Ext: no edema, non-tender Skin: no rash Neuro: CN II-XII intact, Sensation grossly intact, Strength 5/5 in bilateral upper and lower extremities (Ciro Miranda) Constitutional: Initial Vital Signs Temperature (C) 36.9 C 12/21/16 05:48 Heart Rate 82 12/21/16 05:48 Respiratory Rate 16 12/21/16 05:48 Blood Pressure 155/82 H 12/21/16 05:48 O2 Sat (%) 95 12/21/16 05:48 O2 Delivery Mode Room Air Allergies/Adverse Reactions: No Known Allergies Allergy (Verified 10/15/16 12:08) Home Medications: Medication Instructions Recorded Cinacalcet HCl [Sensipar (*)] 30 mg PO DAILY 12/07/16 Lanthanum Carbonate [Fosrenol] 1,000 mg PO TIDMEAL 12/07/16 Lidocaine/Prilocaine [Emla Cream] 1 albert TP MOWEFR PRN 12/07/16 Acetaminophen [Tylenol 325mg (*)] 650 mg PO Q4HRS PRN #0 tab 12/17/16 Apixaban [Eliquis] 5 mg PO BID #60 tab 12/17/16 Aspirin [Aspirin 81mg (*)] 81 mg PO DAILY #30 tab.chew 12/17/16 Atorvastatin Calcium [Lipitor 40 40 mg PO DAILY #30 tab 12/17/16 mg (*)] Sennosides/Docusate Sodium 1 - 2 tab PO BID #60 tab 12/17/16 [Senokot-S] oxyCODONE IR [Oxycodone Ir (*)] 5 mg PO Q6HRS PRN #50 tab 12/17/16 Medical Decision Making <Ciro Miranda - Last Filed: 12/21/16 07:29> <Leena Mills - Last Filed: 12/21/16 16:29> - Diagnostics Imaging Results: Imaging Impressions Chest X-Ray 12/21/16 06:06 Impression: Query left lower lobe pneumonia. ED Course/Re-evaluation: 66-year-old male status post CABG 10 days ago with sternotomy pain which is uncontrolled with some pain medications. I have discussed with Dr. Hernandes who does not feel that the patient will require admission at this time. He will happily increase the patient's pain medications. I am still awaiting the chest x-ray results. Patient would probably benefit from of case management involvement today. Patient has been signed out to Dr. Mills pending further evaluation and case management consultation. Chest x-ray does show a worsening left pleural effusion. Dr. Mills is kindly going to address this. (Ciro Miranda) Other Provider: 0700: Patient care transferred to me by Dr. Miranda at shift change. 0750: The patient is a 66-year-old male who is 10 days status post CABG x4 by Dr. Hernandes, complaining of persistent sternum pain and worsening shortness of breath since discharge 4 days ago not improving with pain medication. No new fevers or chills. No abdominal pain. No nausea. He woke this morning with pain in his sternum and cramping pain in his back. He does not feel his family members can provide 24 hour assistance, which he believes he needs.. Plan to give 5 mg PO OxyContin CR. He states that he feels more short of breath in certain positions and describes his shortness of breath as if he is "drowning". He does note a persistent mild cough that is unchanged since surgery. He is also on dialysis and has increasing leg edema. He is due for dialysis today. Social history: Lives with , son, and son's fiance (at bedside). Chest x-ray shows left lower lobe consolidation with effusion. There is a question of pneumonia. He does not clinically appear to have pneumonia. 0805: Consult with Dr. Hernandes, Cardiothoracic surgeon. Updated him on patients changed chest x-ray. He will review chest x-ray and see patient in ED. 0810: Dr. Hernandes assessed patient in ED. He does not recommend admission and feels that his chest x-ray findings are consistent with postoperative changes related to his CABG.. Patient will followup with him as outpatient. Patient was seen by the patient case manager who had helpful suggestions as to how he can more adequately care for himself at home. (Leena Mills) - Data Points Laboratory Results: Laboratory Results 12/21/16 05:55 12/21/16 05:55 12/21/16 12/21/16 05:55 05:55 WBC 7.70 10^3/uL 10^3/uL (3.80-9.50) RBC 4.26 10^6/uL L 10^6/uL (4.40-6.38) Hgb 13.0 g/dL L g/dL (13.7-17.5) Hct 39.2 % L % (40.0-51.0) MCV 92.0 fL fL (81.5-99.8) MCH 30.5 pg pg (27.9-34.1) MCHC 33.2 g/dL g/dL (32.4-36.7) RDW 14.6 % % (11.5-15.2) Plt Count 197 10^3/uL 10^3/uL (150-400) MPV 9.5 fL fL (8.7-11.7) Neut % (Auto) 73.5 % % (39.3-74.2) Lymph % (Auto) 13.5 % L % (15.0-45.0) Hendricks % (Auto) 8.4 % % (4.5-13.0) Eos % (Auto) 3.1 % % (0.6-7.6) Baso % (Auto) 0.6 % % (0.3-1.7) Nucleat RBC Rel Count 0.0 % % (0.0-0.2) Absolute Neuts (auto) 5.65 10^3/uL 10^3/uL (1.70-6.50) Absolute Lymphs (auto) 1.04 10^3/uL 10^3/uL (1.00-3.00) Absolute Monos (auto) 0.65 10^3/uL 10^3/uL (0.30-0.80) Absolute Eos (auto) 0.24 10^3/uL 10^3/uL (0.03-0.40) Absolute Basos (auto) 0.05 10^3/uL 10^3/uL (0.02-0.10) Absolute Nucleated RBC 0.00 10^3/uL 10^3/uL (0-0.01) Immature Gran % 0.9 % % (0.0-1.1) Immature Gran # 0.07 10^3/uL 10^3/uL (0.00-0.10) Sodium 138 mEq/L mEq/L (134-144) Potassium 4.0 mEq/L mEq/L (3.5-5.2) Chloride 94 mEq/L L mEq/L (97-110) Carbon Dioxide 27 mEq/l mEq/l (22-31) Anion Gap 17 mEq/L H mEq/L (8-16) BUN 59 mg/dL H mg/dL (7-23) Creatinine 8.3 mg/dL H* mg/dL (0.7-1.3) Estimated GFR 6 Glucose 90 mg/dL mg/dL (70-100) Calcium 9.0 mg/dL mg/dL (8.5-10.4) Medications Given: Discontinued Medications Lidocaine/Prilocaine (Emla Cream) 1 albert TP EDNOW ONE Stop: 12/21/16 08:43 Last Admin: 12/21/16 08:46 Dose: 1 albert Oxycodone HCl (Oxycontin) 5 mg PO EDNOW ONE Stop: 12/21/16 08:07 Last Admin: 12/21/16 08:42 Dose: 5 mg Departure <Ciro Miranda - Last Filed: 12/21/16 07:29> <Leena Mills - Last Filed: 12/21/16 16:29> - Departure Disposition: Home, Routine, Self-Care Clinical Impression: Post-operative pain Chest pain Qualifiers: Chest pain type: other chest pain Qualified Code(s): R07.89 - Other chest pain Condition: Good Instructions: Chest Pain (ED) Additional Instructions: Follow post-operative instructions given by Dr. Hernandes. Referrals: Judson Kinney MD [Primary Care Provider] - As per Instructions Hamilton Hernandes DO [Doctor of Osteopathy] - As per Instructions <Ciro Miranda - Last Filed: 12/21/16 07:29> Report Scribed for: Leena Mills Report Scribed by: Preston Watt of Report: 12/21/16 Time of Report: 10:49 <Leena Mills - Last Filed: 12/21/16 16:29> Physician Review and Approval Statement: 12/21/16 16:28 Portions of this note were transcribed by the medical device assembler. I, Dr. Leena Mills, personally performed the history, physical exam, and medical decision- making; and confirmed the accuracy of the information in the transcribed note. ( Leena Mills)
[2016-12-21 06:23] LABS: ANION GAP 17 mEq/L (8-16); CARBON DIOXIDE 27 mEq/l (22-31); CHLORIDE 94 mEq/L (97-110); GLOMERULAR FILTRATION RATE 6; GLUCOSE 90 mg/dL (70-100); SODIUM 138 mEq/L (134-144)
[2016-12-21 06:26] LABS: CREATININE 8.3 mg/dL (0.7-1.3)
[2016-12-21] MEDS ORDERED: LIDOCAINE/PRILOCAINE 1 EACH CRTUBE TP ONE (08:42)
[2016-12-21 09:13] VITALS: O2SAT 97
[2016-12-21 10:39] VITALS: BP 155/85; PULSE 75; RESP 16
== END 2016-12-21 10:49 | disposition home or self-care (01) ==
DX: G89.18 Other acute postprocedural pain (principal); R07.2 Precordial pain; I10 Essential (primary) hypertension; F17.200 Nicotine dependence, unspecified, uncomplicated; Z79.01 Long term (current) use of anticoagulants; Z79.82 Long term (current) use of aspirin; Z95.1 Presence of aortocoronary bypass graft; Z95.5 Presence of coronary angioplasty implant and graft

== ENCOUNTER → 2016-12-29 | Outpatient (CLI) | payer OTHER | LOC: FIMAGING 09:33 | PROVIDERS: ATTEND Internal Medicine | DX: R09.02 Hypoxemia (principal); J98.4 Other disorders of lung ==

== ENCOUNTER → 2017-07-27 | Outpatient (CLI) | payer OTHER | LOC: BHFA 14:00 | PROVIDERS: ATTEND Internal Medicine Cardiovascular Disease | DX: I48.91 Unspecified atrial fibrillation (principal); I25.10 Atherosclerotic heart disease of native coronary artery without angina pectoris | CPT/HCPCS: 78452; 93017; A9500; J2785 ==

== ENCOUNTER 2017-09-15 16:02 | Emergency (ER) | payer OTHER ==
--- NOTE | 2017-09-15 16:15 | EDPHY ---
H & P HPI/ROS: HPI CHIEF COMPLAINT: Back pain after a fall HISTORY OF PRESENT ILLNESS: Patient is a 66-year-old male, history of end- stage renal disease on dialysis Wednesday, CABG, presents emergency room after states he fell on his garage door steps today. This happened 11:00 a.m.. He fell backwards on his garage steps while walking down that he turned and tripped. He landed on his coccyx and back. He is complaining of low back pain and coccyx pain and left hip pain. Denies any focal numbness or tingling. Denies saddle anesthesia. Denies leg weakness. Able to ambulate appropriately. He went to dialysis today complete his course of dialysis and took oxycodone 5 mg this was his last dose and no longer has any pain medicine. He presents emergency room due to ongoing pain. Denies any leg weakness. Fever or any other areas of trauma. Denies head strike. Denies chest pain or shortness of breath. Past Medical History:, hypertension, AFib, coronary artery disease with CABG, end-stage renal disease dialysis Wednesday Past Surgical History: History of CABG Social History: Denies daily use of drugs alcohol tobacco. Family History: Noncontributory. ROS REVIEW OF SYSTEMS: A comprehensive 10 point review of systems is otherwise negative aside from elements mentioned in the history of present illness. Exam Constitutional appears well nontoxic no acute distress triage nursing summary reviewed, vital signs reviewed, awake/alert. Eyes normal conjunctivae and sclera, EOMI, PERRLA. HENT normal inspection, atraumatic, moist mucus membranes, no epistaxis, neck supple/ no meningismus, no raccoon eyes. Respiratory clear to auscultation bilaterally, normal breath sounds, no respiratory distress, no wheezing. Cardiovascular rate normal, regular rhythm, no murmur, no edema, distal pulses normal. Gastrointestinal soft, non-tender, no rebound, no guarding, normal bowel sounds, no distension, no pulsatile mass. Genitourinary no CVA tenderness. Musculoskeletal I do not appreciate a significant midline vertebral tenderness , no leg weakness, no saddle anesthesia, full range of motion, no calf swelling , no tenderness of extremities, no meningismus, good pulses, neurovascularly intact. Left upper extremity fistula wrapped from previous dialysis. Skin pink, warm, & dry, no rash, skin atraumatic. Neurologic awake, alert and oriented x 3, AAOx3, moves all 4 extremities equally, motor intact, sensory intact, CN II-XII intact, normal cerebellar, normal vision, normal speech. Psychiatric normal mood/affect. Heme/Lymph/Immune no lymphadenopathy. Differential Diagnosis: Includes but is not limited to in a particular order fall, multiple contusions, herniated disc, compression fracture, annular tear, sciatica, coccyx fracture, pelvis fracture, hip fracture, hip contusion Medical Decision Making: Plan for this patient x-ray left hip, x-ray lumbar spine, the x-ray coccyx to rule out fractures or significant malalignment. Re-evaluation: 1726: Patient's x-rays reviewed. Age-indeterminate L1 compression fracture. Additionally possible sacral fracture. Will consult Neurosurgery for further evaluation of this. He has no hard neurological finds specifically denies numbness or tingling or focal weakness. Unclear if he needs to have a brace. Will most likely give oxycodone for pain control. Went over x-ray findings with the patient age-indeterminate L1 compression fracture. He does not have focal pain here. Possible sacral fracture. He does have coccyx pain. I will prescribe oxycodone for pain control. Recommend sitting on a Donut. Return precautions discussed. Understands return emergency room if he has any worsening symptoms questions or concerns. I did discuss the case with Dr. Elvin Hammonds about L1 compression fracture. Does not recommend brace. Recommends follow up PCP and referral to Neurosurgery if further pain questions or concerns. Discussed this at length the patient. Oxycodone prescription provided. Return precautions discussed. Source: Patient - Medical/Surgical History Hx Asthma: No Hx Chronic Respiratory Disease: Yes Hx Diabetes: No Hx Cardiac Disease: Yes Hx Renal Disease: Yes Hx Cirrhosis: No Hx Alcoholism: No Hx HIV/AIDS: No Hx Splenectomy or Spleen Trauma: No Other PMH: PMHx: Kidney issues- Dialysis MWF, HTN, hernated disc, arthitis. PSHx: stent placement, L knee surgery, total R hip replacment, 4 vessel CABG 12/14 - Social History Smoking Status: Heavy smoker Constitutional: Initial Vital Signs Temperature (C) 36.8 C 09/15/17 16:16 Heart Rate 77 09/15/17 16:16 Respiratory Rate 18 09/15/17 16:16 Blood Pressure 140/89 H 09/15/17 16:16 O2 Sat (%) 96 09/15/17 16:16 O2 Delivery Mode Room Air Allergies/Adverse Reactions: No Known Allergies Allergy (Verified 09/15/17 16:16) Home Medications: Medication Instructions Recorded Cinacalcet HCl [Sensipar (*)] 30 mg PO DAILY 12/07/16 Lanthanum Carbonate [Fosrenol] 1,000 mg PO TIDMEAL 12/07/16 Lidocaine/Prilocaine [Emla Cream] 1 albert TP MOWEFR PRN 12/07/16 Acetaminophen [Tylenol 325mg (*)] 650 mg PO Q4HRS PRN #0 tab 12/17/16 Apixaban [Eliquis] 5 mg PO BID #60 tab 12/17/16 Aspirin [Aspirin 81mg (*)] 81 mg PO DAILY #30 tab.chew 12/17/16 Atorvastatin Calcium [Lipitor 40 40 mg PO DAILY #30 tab 12/17/16 mg (*)] Sennosides/Docusate Sodium 1 - 2 tab PO BID #60 tab 12/17/16 [Senokot-S] oxyCODONE IR [Oxycodone Ir (*)] 5 mg PO Q6HRS PRN #50 tab 12/17/16 oxyCODONE IR [Oxycodone Ir (*)] 5 - 10 mg PO BID #10 tab 09/15/17 Medical Decision Making - Diagnostics Imaging Results: Imaging Impressions Hip X-Ray 09/15/17 16:22 Impression: Nothing acute identified. Lumbar Spine X-Ray 09/15/17 16:22 Impression: Mild L1 compression of unknown age. Sacrum and Coccyx X-Ray 09/15/17 16:22 Impression: Possible distal sacral fracture. Departure - Departure Disposition: Home, Routine, Self-Care Clinical Impression: Back pain Qualifiers: Back pain location: low back pain Chronicity: acute Back pain laterality: unspecified Sciatica presence: without sciatica Qualified Code(s): M54.5 - Low back pain Contusion, back Qualifiers: Encounter type: initial encounter Laterality: unspecified laterality Qualified Code(s): S20.229A - Contusion of unspecified back wall of thorax, initial encounter Fracture of lumbar spine Qualifiers: Encounter type: initial encounter Lumbar vertebra fracture level: L1 Fracture type: closed Fracture morphology: other fracture Qualified Code(s): S32.018A - Other fracture of first lumbar vertebra, initial encounter for closed fracture Condition: Good Instructions: Contusion in Adults (ED), Back Pain (ED), Vertebral Compression Fracture (ED) Additional Instructions: 1. Ice your back. 2. Rest. 3. Follow up with her primary care doctor. 4. I have given you a limited supply of oxycodone. This medication can make you sleepy do not drive while taking it. 5. Return emergency room if you have worsening symptoms questions or concerns. 6. You have an age indeterminate L1 compression fracture it is small. If you continue have pain follow up with her primary care doctor. Referrals: NONE *PRIMARY CARE P,. [Primary Care Provider] - As per Instructions Crystal Hammonds MD [Medical Doctor] - As per Instructions Prescriptions: oxyCODONE IR [Oxycodone Ir (*)] 5 - 10 mg PO BID #10 tab
[2017-09-15 16:20] VITALS: RESP 18; TEMP 98.2
[2017-09-15 17:51] VITALS: BP 136/90; PULSE 86; O2SAT 97
== END 2017-09-15 17:50 | disposition home or self-care (01) ==
LOC: CED 16:02
DX: S32.018A Other fracture of first lumbar vertebra, initial encounter for closed fracture (principal); S20.229A Contusion of unspecified back wall of thorax, initial encounter; I12.0 Hypertensive chronic kidney disease with stage 5 chronic kidney disease or end stage renal disease; N18.6 End stage renal disease; Z99.2 Dependence on renal dialysis; Z95.1 Presence of aortocoronary bypass graft; Z95.5 Presence of coronary angioplasty implant and graft; Z79.82 Long term (current) use of aspirin; W10.9XXA Fall (on) (from) unspecified stairs and steps, initial encounter; Y92.015 Private garage of single-family (private) house as the place of occurrence of the external cause; Y99.8 Other external cause status; Y93.01 Activity, walking, marching and hiking
CPT/HCPCS: 72100-PO; 72220-PO; 73502-PO

== ENCOUNTER → 2018-10-27 | Outpatient (CLI) | payer OTHER | LOC: FIMAGING 13:47 | PROVIDERS: ATTEND Internal Medicine | DX: R09.89 Other specified symptoms and signs involving the circulatory and respiratory systems (principal) ==

== ENCOUNTER 2018-11-03 12:36 | Inpatient (IN) | payer OTHER ==
[2018-11-03 13:25] LABS: PLATELET COUNT 159 10^3/uL (150-400)
--- NOTE | 2018-11-03 13:25 | EDPHY ---
H & P Stated Complaint: difficulty breathing xmultiple months, worse x1week, dx pneumonia Time Seen by Provider: 11/03/18 12:57 HPI/ROS: CHIEF COMPLAINT: Shortness of breath HISTORY OF PRESENT ILLNESS: 67-year-old male with end-stage renal disease on dialysis and prior CABG presents with shortness of breath. 3 month history of exertional shortness of breath. He was diagnosed with pneumonia 2 weeks ago and placed on a 5 day course of Zithromax. Chest x-ray on 10/27/2018 revealed bilateral increased interstitial markings, consistent with edema or possibly pneumonia. Persistent exertional shortness of breath. Associated with coughing spasms and fatigue x 4 weeks. Unable to sleep last night because of coughing and shortness of breath. No chest pain or fever. Prior anginal equivalent symptom was excessive fatigue and shortness of breath. REVIEW OF SYSTEMS: complete 10 point ROS reviewed and is negative except for the noted elements in the HPI - Personal History Current Tetanus/Diphtheria Vaccine: Yes Current Tetanus Diphtheria and Acellular Pertussis (TDAP): Yes - Medical/Surgical History Hx Asthma: No Hx Chronic Respiratory Disease: Yes Hx Diabetes: No Hx Cardiac Disease: Yes Hx Renal Disease: Yes Hx Cirrhosis: No Hx Alcoholism: No Hx HIV/AIDS: No Hx Splenectomy or Spleen Trauma: No Other PMH: PMHx: Kidney issues- Dialysis MWF, HTN, hernated disc, arthitis. PSHx: stent placement, L knee surgery, total R hip replacment, 4 vessel CABG 12/14 - Social History Smoking Status: Former smoker Alcohol Use: Sober Additional Social History: - Physical Exam Exam: General Appearance: Alert, nontoxic-appearing Eyes: Pupils equal and round, no conjunctival pallor or injection ENT, Mouth: Mucous membranes moist Neck: Normal inspection Respiratory: Rales at the right base Cardiovascular: Regular rate and rhythm Gastrointestinal: Abdomen is soft and nontender Neurological: A&O, nonfocal exam Skin: Warm and dry, no rash Extremities: 1+ pedal edema Psychiatric: Mood and affect normal Constitutional: Initial Vital Signs Temperature (C) 36.7 C 11/03/18 12:40 Heart Rate 86 11/03/18 12:40 Respiratory Rate 16 11/03/18 12:40 Blood Pressure 180/81 H 11/03/18 12:40 O2 Sat (%) 91 L 11/03/18 12:40 O2 Delivery Mode Room Air Allergies/Adverse Reactions: No Known Allergies Allergy (Verified 11/03/18 12:45) Home Medications: Medication Instructions Recorded HYDROcodone BIT/HOMATROP ME-BR 5 ml PO Q4-6PRN PRN 11/03/18 [Hydromet Syrup] Ibuprofen 800 mg PO BID PRN 11/03/18 Lisinopril [Zestril 2.5 mg (*)] 2.5 mg PO DAILY 11/03/18 Medical Decision Making - Diagnostics EKG Interpretation: EKG interpreted by me reveals normal sinus rhythm, rate 87, poor R-wave progression, diffuse nonspecific T-wave changes. Interpretation: Abnormal EKG Imaging Results: Imaging Impressions Chest X-Ray 11/03/18 00:00 Impression: Mild cardiomegaly with central vascular congestion and right greater than left pleural effusion. Extremity Venous Study 11/03/18 13:44 Impression: 1. No evidence of deep vein thrombosis in the lower extremities. 2. Small right Torres's cyst. 3. Atherosclerosis. Findings discussed with CHRISTY LYNN 11/03/2018 at 14:50. Chest/Thorax CTA 11/03/18 14:24 Impression: 1. Findings most compatible with multifocal pneumonia greatest in the right lower lobe with moderate right and small left pleural effusions. Superimposed pulmonary edema or malignancy cannot be radiographically excluded. 2. Extensive mediastinal and hilar lymphadenopathy. This may be reactive in nature, however short-term follow-up in 1-2 months is recommended to ensure resolution of these pulmonary opacities and lymphadenopathy and exclude malignancy. Without resolution, further evaluation with PET/CT and/or biopsy is recommended. 3. No evidence for pulmonary embolic disease. Christy Lynn was notified of these findings by telephone at 4:18 PM on 11/03/2018 Imaging: Discussed imaging studies w/ manager call Radiologist, I viewed and interpreted images myself ED Course/Re-evaluation: This patient presents with a 4 week history of shortness of breath. Chest x- ray 1 week ago revealed pulmonary edema versus infiltrate. Continues to be progressively increasingly SOB of breath and has a persistent cough after a course of abx. stat EKG reveals no evidence of ischemia or dysrhythmia and initial troponin is normal. D-dimer is slightly elevated. The patient is on dialysis, will obtain a CT pulmonary angiogram to evaluate for pulmonary embolism and versus pneumonia. CT results discussed with the radiologist reveal bilateral pneumonia. Results discussed with the patient. Blood cultures were drawn and Levaquin IV given. Does not meet SIRS criteria and lactate is normal. The hospitalist service was consulted for admission. BNP markedly elevated, likely contributing pulmonary edema. Hopefully pt will agree to dialysis tomorrow. Differential Diagnosis: Differential diagnosis includes though it is not limited to pneumonia, pneumothorax, pulmonary embolism, aortic dissection, pericarditis, acute coronary syndrome. - Data Points Laboratory Results: Laboratory Results 11/03/18 13:15 11/03/18 13:15 11/03/18 11/03/18 11/03/18 13:22 13:15 13:15 WBC RBC Hgb Hct MCV MCH MCHC RDW Plt Count MPV Neut % (Auto) Lymph % (Auto) [place] % (Auto) Eos % (Auto) Baso % (Auto) Nucleat RBC Rel Count Absolute Neuts (auto) Absolute Lymphs (auto) Absolute Monos (auto) Absolute Eos (auto) Absolute Basos (auto) Absolute Nucleated RBC Immature Gran % Immature Gran # D-Dimer Sodium 136 mEq/L mEq/L (135-145) Potassium 4.4 mEq/L mEq/L (3.5-5.2) Chloride 92 mEq/L L mEq/L (97-110) Carbon Dioxide 31 mEq/l mEq/l (22-31) Anion Gap 13 mEq/L mEq/L (6-14) BUN 20 mg/dL mg/dL (7-23) Creatinine 4.5 mg/dL H mg/dL (0.7-1.3) Estimated GFR 13 Glucose 105 mg/dL H mg/dL (70-100) Calcium 8.4 mg/dL L mg/dL (8.5-10.4) POC Troponin I 0.07 ng/mL ng/mL (0.00-0.08) NT-Pro-B Natriuret Pep 91273 pg/mL H pg/mL (0-125) Procalcitonin 0.36 ng/mL H ng/mL (0.02-0.10) 11/03/18 11/03/18 13:15 13:15 WBC 5.17 10^3/uL 10^3/uL (3.80-9.50) RBC 2.99 10^6/uL L 10^6/uL (4.40-6.38) Hgb 9.5 g/dL L g/dL (13.7-17.5) Hct 29.0 % L % (40.0-51.0) MCV 97.0 fL fL (81.5-99.8) MCH 31.8 pg pg (27.9-34.1) MCHC 32.8 g/dL g/dL (32.4-36.7) RDW 14.2 % % (11.5-15.2) Plt Count 159 10^3/uL 10^3/uL (150-400) MPV 8.8 fL fL (8.7-11.7) Neut % (Auto) 73.5 % % (39.3-74.2) Lymph % (Auto) 14.9 % L % (15.0-45.0) [place] % (Auto) 8.1 % % (4.5-13.0) Eos % (Auto) 2.1 % % (0.6-7.6) Baso % (Auto) 1.0 % % (0.3-1.7) Nucleat RBC Rel Count 0.0 % % (0.0-0.2) Absolute Neuts (auto) 3.80 10^3/uL 10^3/uL (1.70-6.50) Absolute Lymphs (auto) 0.77 10^3/uL L 10^3/uL (1.00-3.00) Absolute Monos (auto) 0.42 10^3/uL 10^3/uL (0.30-0.80) Absolute Eos (auto) 0.11 10^3/uL 10^3/uL (0.03-0.40) Absolute Basos (auto) 0.05 10^3/uL 10^3/uL (0.02-0.10) Absolute Nucleated RBC 0.00 10^3/uL 10^3/uL (0-0.01) Immature Gran % 0.4 % % (0.0-1.1) Immature Gran # 0.02 10^3/uL 10^3/uL (0.00-0.10) D-Dimer 1.23 ug/mLFEU H ug/mLFEU (0.00-0.50) Sodium Potassium Chloride Carbon Dioxide Anion Gap BUN Creatinine Estimated GFR Glucose Calcium POC Troponin I NT-Pro-B Natriuret Pep Procalcitonin Medications Given: Levofloxacin/Dextrose (Levaquin 750 Mg (Premix)) 150 mls @ 100 mls/hr IV EDNOW ONE PRN Reason: Protocol Stop: 11/03/18 17:51 Last Admin: 11/03/18 16:46 Dose: 150 mls Discontinued Medications Sodium Chloride (Ns) 1,000 mls @ 0 mls/hr IV ONCE ONE; Wide Open PRN Reason: Protocol Stop: 11/03/18 14:14 Last Admin: 11/03/18 14:49 Dose: Not Given Point of Care Test Results: Chemistry 11/03/18 13:22 POC Troponin I 0.07 ng/mL ng/mL (0.00-0.08) Departure - Departure Disposition: [facility] Inpatient Acute Clinical Impression: Pneumonia Qualifiers: Pneumonia type: due to unspecified organism Laterality: bilateral Lung location : unspecified part of lung Qualified Code(s): J18.9 - Pneumonia, unspecified organism Condition: Good
[2018-11-03] MEDS ORDERED: NS 1,000 ML IV ONE (14:13)
[2018-11-03] MEDS ORDERED: IOPAMIDOL (ISOVUE-370) 150 ML BTL IV ONE (15:11)
[2018-11-03] MEDS ORDERED: hydrALAZINE 20 MG/ML VIAL IVP PRN (15:50)
[2018-11-03] MEDS ORDERED: ONDANSETRON 4 MG/2 ML VIAL IVP PRN (15:53)
[2018-11-03] MEDS ORDERED: traMADol 50 MG TAB PO PRN (15:53)
[2018-11-03] MEDS ORDERED: ACETAMINOPHEN 325 MG TAB PO PRN (15:53)
[2018-11-03] MEDS ORDERED: AZITHROMYCIN IV 500 MG in NS 250 ML IV ONE (16:19)
--- NOTE | 2018-11-03 16:27 | PDCONSULT ---
Resolution Expert Note: Assessment/Plan: ESRD: on HD MWF at [facility]. - I offered HD tomorrow per routine, pt refused inpatient dialysis and states he would rather go back to his dialysis unit, even though he has a host of problems there as well. - Will offer HD again tomorrow, but unlikely he will agree. If he is stable, would prefer he be discharged to make outpatient dialysis chair at 10:30am tomorrow if possible. Hypervolemia: pt directs his own fluid removal on HD rather than aiming for dry weight. HTN: continue his home meds. KYLE: will check phos with am labs. Anemia: Hgb at goal, pt gets epo and iron per outpatient dialysis unit protocol. Thank you for the interesting consult. Nephrology will continue to follow, please call if you have any additional questions or concerns. H & P Stated Complaint: difficulty breathing xmultiple months, worse x1week, dx pneumonia Time Seen by Provider: 11/03/18 12:57 HPI/ROS: HPI: Mr. Morillo is a 67 yo M with h/o ESRD 2/2 polycystic kidneys, on HD for 8 years on MWF at [facility] under Dr. Maldonado. Pt presents to ER today with worsening cough and dyspnea. Pt states that he first started to have problems with cough about 3.5 weeks ago, saw PCP and got CXR done, reportedly showed R pleural effusion and enlarged heart. He was given abx, but he felt that this week his dyspnea was getting worse, prompting him to come in. He last was dialyzed yesterday per routine. He notes that he has had lots of problems at the dialysis unit in the past 15 months, mostly painful access issues, last fistulagram done a month ago. He also notes that does not believe in dry weight and instructs the techs how much fluid to remove based on how much fluid he believes he took in between sessions. He notes he was missing a few dialysis sessions in August but not lately, and he feels that fluid is not his problem. ROS: positive per HPI, rest of 10-point ROS negative Source: Patient - Personal History Current Tetanus/Diphtheria Vaccine: Yes Current Tetanus Diphtheria and Acellular Pertussis (TDAP): Yes - Medical/Surgical History Hx Asthma: No Hx Chronic Respiratory Disease: Yes Hx Diabetes: No Hx Cardiac Disease: Yes Hx Renal Disease: Yes Hx Cirrhosis: No Hx Alcoholism: No Hx HIV/AIDS: No Hx Splenectomy or Spleen Trauma: No Other PMH: PMHx: Kidney issues- Dialysis MWF, HTN, hernated disc, arthitis. PSHx: stent placement, L knee surgery, total R hip replacment, 4 vessel CABG 12/14 - Family History Significant Family History: No pertinent family hx, Renal disease (brother with polycystic kidney disease) - Social History Smoking Status: Former smoker - Physical Exam Exam: General: alert and oriented, no acute distress Eyes: EOMI, PERRL OP: Clear Neck: supple, no thyromegaly CV: RRR, +1 edema BLE Resp: CTA bilat, nonlabored respirations on RA Abd: Soft, NT/ND Neuro: CN II-XII grossly intact, no asterixis Psych: cooperative, appropriate mood and affect Skin: C/D/I, no rash Access: LUE AVF with thrill and bruit appreciated Constitutional: Initial Vital Signs Temperature (C) 36.7 C 11/03/18 12:40 Heart Rate 86 11/03/18 12:40 Respiratory Rate 16 11/03/18 12:40 Blood Pressure 180/81 H 11/03/18 12:40 O2 Sat (%) 91 L 11/03/18 12:40 O2 Delivery Mode Room Air Allergies/Adverse Reactions: No Known Allergies Allergy (Verified 11/03/18 12:45) Home Medications: Medication Instructions Recorded HYDROcodone BIT/HOMATROP ME-BR 5 ml PO Q4-6PRN PRN 11/03/18 [Hydromet Syrup] Ibuprofen 800 mg PO BID PRN 11/03/18 Lisinopril [Zestril 2.5 mg (*)] 2.5 mg PO DAILY 11/03/18 Lab and Imaging 11/03/18 13:15 11/03/18 13:15 WBC 5.17 10^3/uL (3.80-9.50) 11/03/18 13:15 RBC 2.99 10^6/uL (4.40-6.38) L 11/03/18 13:15 Hgb 9.5 g/dL (13.7-17.5) L 11/03/18 13:15 Hct 29.0 % (40.0-51.0) L 11/03/18 13:15 MCV 97.0 fL (81.5-99.8) 11/03/18 13:15 MCH 31.8 pg (27.9-34.1) 11/03/18 13:15 MCHC 32.8 g/dL (32.4-36.7) 11/03/18 13:15 RDW 14.2 % (11.5-15.2) 11/03/18 13:15 Plt Count 159 10^3/uL (150-400) 11/03/18 13:15 MPV 8.8 fL (8.7-11.7) 11/03/18 13:15 Neut % (Auto) 73.5 % (39.3-74.2) 11/03/18 13:15 Lymph % (Auto) 14.9 % (15.0-45.0) L 11/03/18 13:15 [place] % (Auto) 8.1 % (4.5-13.0) 11/03/18 13:15 Eos % (Auto) 2.1 % (0.6-7.6) 11/03/18 13:15 Baso % (Auto) 1.0 % (0.3-1.7) 11/03/18 13:15 Nucleat RBC Rel Count 0.0 % (0.0-0.2) 11/03/18 13:15 Absolute Neuts (auto) 3.80 10^3/uL (1.70-6.50) 11/03/18 13:15 Absolute Lymphs (auto) 0.77 10^3/uL (1.00-3.00) L 11/03/18 13:15 Absolute Monos (auto) 0.42 10^3/uL (0.30-0.80) 11/03/18 13:15 Absolute Eos (auto) 0.11 10^3/uL (0.03-0.40) 11/03/18 13:15 Absolute Basos (auto) 0.05 10^3/uL (0.02-0.10) 11/03/18 13:15 Absolute Nucleated RBC 0.00 10^3/uL (0-0.01) 11/03/18 13:15 Immature Gran % 0.4 % (0.0-1.1) 11/03/18 13:15 Immature Gran # 0.02 10^3/uL (0.00-0.10) 11/03/18 13:15 D-Dimer 1.23 ug/mLFEU (0.00-0.50) H 11/03/18 13:15 Sodium 136 mEq/L (135-145) 11/03/18 13:15 Potassium 4.4 mEq/L (3.5-5.2) 11/03/18 13:15 Chloride 92 mEq/L (97-110) L 11/03/18 13:15 Carbon Dioxide 31 mEq/l (22-31) 11/03/18 13:15 Anion Gap 13 mEq/L (6-14) 11/03/18 13:15 BUN 20 mg/dL (7-23) 11/03/18 13:15 Creatinine 4.5 mg/dL (0.7-1.3) H 11/03/18 13:15 Estimated GFR 13 11/03/18 13:15 Glucose 105 mg/dL (70-100) H 11/03/18 13:15 Calcium 8.4 mg/dL (8.5-10.4) L 11/03/18 13:15 POC Troponin I 0.07 ng/mL (0.00-0.08) 11/03/18 13:22 NT-Pro-B Natriuret Pep 07477 pg/mL (0-125) H 11/03/18 13:15
[2018-11-03] MEDS ORDERED: IPRATROPIUM/ALBUTEROL 3 ML DEYVIAL IH PRN (16:43)
--- NOTE | 2018-11-03 17:14 | GHP ---
[f rep st] HISTORY AND PHYSICAL DATE OF ADMISSION: 11/03/2018 CHIEF COMPLAINT: Shortness of breath. HISTORY: The patient is a 67-year-old male who has felt short of breath for the last 3 months. He w as recently diagnosed with pneumonia and completed his course of azithromycin. He did improve for a period of time, but continues to be short of breath. Shortness of breath has been intermittent since Erick, constant for the last 4 weeks. He did get a flu shot. He has had a severe cough for the last 3 weeks. His cough is worse with lying down. He describes his phlegm as salty. He sleeps in a recliner for sleep. His breathing is much better when he is vertical. He has severe dyspnea on ex ertion, cannot even walk 30 feet. He had a CABG with Dr. Hernandes in December of 2016. He stopped all of hi s cardiac medications so he could take ibuprofen for his arthritis. Prior to stopping them, he was o n Eliquis, Plavix, and aspirin. When asked about his dry weight, the patient became agitated, saying that he does not believe in dry weight. He does have leg swelling, but he says that is chronic. He has nausea, vomiting, and dry he aves with decrease appetite, so he thinks his weight is actually down. He does not follow doctor's d ialysis orders and states that he tells the dialysis nurses how much fluid to take off during each di alysis session. He will not let him take more than 1.3 to 1.5 L per session. He does not like the w ay he feels when they dry him out too much. It causes constipation and sometimes drops his blood pre ssure. Denies any chest pain. PAST MEDICAL HISTORY: 1. Coronary disease, status post CABG December 2016. 2. COPD. 3. End-stage renal disease, secondary to polycystic kidney disease. 4. Hypertension. 5. Atrial fibrillation. PAST SURGICAL HISTORY: Right total hip arthroplasty. MEDICATIONS: Please see computerized record for full detailed list. ALLERGIES: No known drug allergies. SOCIAL HISTORY: He smoked for 50 years and quit when he had his bypass surgery. He continues to smo ke marijuana. He does not drink alcohol. He lives with his . REVIEW OF SYSTEMS: Complete review of systems obtained. Review of systems negative on constitutiona l, HEENT, GI, pulmonary, GI, , hematology, skin, endocrine, psych, except for positives and negativ es as noted in HPI. FAMILY HISTORY: Reviewed, noncontributory to presenting complaint. PHYSICAL EXAMINATION: GENERAL: Well-developed, well-nourished male in no acute distress. VITAL SIG NS: Temperature is 36.7, pulse 86, blood pressure 180/81, saturating 91% on room air. HEENT: Eye: Normal conjunctivae. Pupils reactive to light. ENT: Normal ears, nose. Hearing intact. Normal t eeth. Oropharynx moist. NECK: Trachea midline. No thyromegaly. CHEST: Normal respiratory effort . LUNGS: Rales at the bases. CARDIOVASCULAR: Regular rate, rhythm. No murmur. 1 to 2+ lower ext remity edema. Positive JVD. ABDOMEN: Soft, nontender. No hepatosplenomegaly. SKIN: Warm, dry, i ntact. No rash. MUSCULOSKELETAL: No cyanosis or clubbing. Strength 5/5 upper and lower extremitie s. NEURO: Cranial nerves intact. Normal sensation to light touch. PSYCH: Alert, oriented x3. No rmal mood and affect. Normal judgment, insight. Normal memory. LABORATORY/IMAGING: White count 5.17, hematocrit 29.0, platelets 159. Sodium 136, potassium 4.4, ch loride 92, bicarb 31, BUN 20, creatinine 4.5, glucose 105. BNP is 47,400. Troponins negative. D-di ximena is 1.23. EKG viewed by me. My personal interpretation is normal sinus rhythm. Prolonged MS interval, diffuse T-wave flattening. CT angiogram of the chest is read as bilateral pneumonia versus CHF. ASSESSMENT/PLAN: 1. Shortness of breath. Differential diagnosis is pneumonia versus congestive heart failure. We wi ll continue antibiotics started in the emergency room. I will prescribe IV ceftriaxone, plus oral do xycycline as he recently took a course of azithromycin. Will add on a procalcitonin. Respiratory PC R is pending and blood cultures have been ordered by the emergency room. Also in the differential is congestive heart failure exacerbation. Many features of his history and physical were more consiste nt with this especially given his clear noncompliance with fluid removal at dialysis. We will check an echocardiogram. 2. End-stage renal disease, secondary to polycystic kidney disease. I consulted Nephrology and spok e with Dr. Hauser. She saw the patient the emergency room. He adamantly refuses any inpatient dialysis and will only dialyze once he is discharged from the hospital. If volume overload is contributing t o his presentation, that might make it difficult for us to get him better in order to be discharged. 3. Coronary disease, status post coronary artery bypass graft. He is noncompliant with his cardiac medications as he prioritizes taking ibuprofen. Will follow serial troponins. 4. Hypertension. He is only on a very small dose of lisinopril. This may need to be up-titrated. It is unclear whether he stopped any other blood pressure medications when he made the decision to st op all cardiac medications. 5. Atrial fibrillation. Noncompliant with Eliquis. Will watch him on telemetry. 6. Chronic obstructive pulmonary disease. Quit smoking at the time of his bypass surgery. He is cu rrently not wheezing and I do not think he is exacerbating. He can have a nebulizer if needed. 7. Mediastinal and hilar lymphadenopathy. Recommendation is follow up in 1 to 2 months to rule out malignancy. 8. Deep venous thrombosis prophylaxis. He is high risk. Will place him on subcutaneous Lovenox. CODE STATUS: Full. ADMISSION STATUS: Will admit to observation, Reevaluate tomorrow regarding ongoing need for hospital ization. /[id number]/MODL
--- NOTE | 2018-11-03 17:28 | CPEKG ---
Test Reason : OPEN Blood Pressure : / mmHG Vent. Rate : 087 BPM Atrial Rate : 087 BPM P-R Int : 228 ms QRS Dur : 099 ms QT Int : 365 ms P-R-T Axes : 046 -35 241 degrees QTc Int : 439 ms Sinus rhythm Prolonged VT interval Left axis deviation Anteroseptal infarct, old Nonspecific T abnormalities, lateral leads Confirmed by Christy Lynn ([id number]) on 11/03/2018 5:27:55 PM Referred By: CHRISTY LYNN Confirmed By:Christy Lynn
[2018-11-03] MEDS ORDERED: HYDROCODONE/HOMATROPINE HYCODAN 5 ML UDL PO PRN (17:54)
[2018-11-03] MEDS ORDERED: IBUPROFEN 800 MG TAB PO PRN (18:00)
[2018-11-03] MEDS ORDERED: guaiFENesin/CODEINE PHOS 10 ML UDCUP PO PRN (18:29)
[2018-11-03] MEDS ORDERED: POLYETHYLENE GLYCOL 3350 17 GM PKT PO PRN (20:27)
[2018-11-03] MEDS: DOXYCYCLINE HYCLATE 100 MG CAP/TAB PO SCH (21:05)
[2018-11-03] MEDS: HEPARIN 5,000 UNIT/0.5 ML INJ SC SCH (21:06)
[2018-11-04] MEDS: HEPARIN 5,000 UNIT/0.5 ML INJ SC SCH ×3 (06:57→20:06)
[2018-11-04 08:36] LABS: PLATELET COUNT 128 10^3/uL (150-400)
[2018-11-04] MEDS ORDERED: LIDOCAINE/PRILOCAINE 1 EACH CRTUBE TP SCH (09:00)
[2018-11-04] MEDS ORDERED: AZITHROMYCIN IV 500 MG in NS 250 ML IV SCH (09:00)
--- NOTE | 2018-11-04 09:06 | ASMTLACE ---
[facility] Comorbidities - select Answers: Chronic pulmonary disease all that apply Coronary Artery Disease Moderate or severe liver or renal disease Opioid dependence / Chronic pain Previous myocardial infarction Other Notes: HTN; AFib # of Emergency department Answers: 1-2 visits in the last 6 months Score: 15 Date Signed: 11/04/2018 09:05 AM Electronically Signed By:Glendy Pastor
--- NOTE | 2018-11-04 09:10 | SOAPPROG ---
SOAP Progress Note Assessment/Plan: Assessment: ESRD on TIW HD volume overload pneumonia, finished Z-Pack as outpatient HTN, likely contributed to by volume Anemia of CKD short of breath Plan: HD later today have given him time to place his EMLA cream continue Abx, Rocephin and Doxy echocardiogram completed, results pending 11/04/18 09:07 Subjective: didn't sleep well, doesn't like the bed much still with cough and SOB, not significantly improved today no chest pain appetite not great has been having what sounds like post tussive emesis Objective: Vital Signs Temp Pulse Resp BP Pulse Ox 36.7 C 73 16 172/85 H 97 11/04/18 07:44 11/04/18 07:44 11/04/18 07:44 11/04/18 07:44 11/04/18 07:44 Microbiology 11/03/18 18:00 Respiratory Panel (PCR) - Final Nasal, Sinus - Swab No Organism Detected By Pcr Laboratory Results 11/04/18 08:00 11/04/18 08:00 11/03/18 11/04/18 11/05/18 05:59 05:59 05:59 Intake Total 400 Balance 400 Physical Exam - Physical Exam General Appearance: alert, mild distress Neck: other (JVD) Respiratory: rales, wheezing, No rhonchi Cardiac/Chest: regular rate, rhythm, edema, systolic murmur, No friction rub Abdomen: normal bowel sounds, non-tender, soft (large kidneys) Skin: warm/dry Extremities: swelling Neuro/Psych: alert, normal mood/affect, oriented x 3 ICD10 Worksheet Patient Problems: Problems Problem Status Onset Pneumonia Acute Acute blood loss anemia Acute Chest pain Acute Chronic Disease Mgmt/Transitional Care Acute Elevated troponin Acute End stage renal disease Acute Postoperative atrial fibrillation Acute S/P CABG x 4 Acute Anemia in chronic kidney disease (CKD) Chronic CAD, multiple vessel Chronic
[2018-11-04] MEDS: DOXYCYCLINE HYCLATE 100 MG CAP/TAB PO SCH ×2 (09:26→20:06)
[2018-11-04] MEDS: LANTHANUM CARBONATE 1000 MG PO SCH ×3 (09:45→17:40)
--- NOTE | 2018-11-04 10:04 | ECHO ---
[email or web address] [address] Main: [phone] Echocardiography Examination Transthoracic Name: ARGENTINA WASHINGTON MR#: [id number] Study Date: 11/04/2018 Study Time: 08:07 AM Date of : 1950 Age: 67 year(s) Height: 177.8 cm (70 in.) Weight: 95.71 kg (211 lb.) BSA: 2.14 m2 Gender: Male Examination: Echo Contrast: Image Quality: Adequate Rhythm: Heart Rate: BP: / Indication: PNA, dialysis, Hx of CABG, Shortness of breath Procedure Staff Referring Physician: Lumber Sorter Machine: Reading Physician: Cassius Manuel MD Requesting Provider: Indication: PNA, dialysis, Hx of CABG, Shortness of breath Measurements Chambers AV/MV Label Value Normal Value Label Value Normal Value EF lower range (%) 55 % AV PGmax 4 mmHg EF upper range (%) 60 % AV PGmean 2 mmHg IVSd, 2D 0.8 cm (0.6cm - 1.1cm) AV Vmax 1 m/s LVDd, 2D 5.7 cm (4.2cm - 5.9cm) RADHA (continuity eq. 2.5 cm2 LVDs, 2D 3.9 cm (2.1cm - 4cm) Vmax) LVEF, 2D 59 % (54% - 74%) RADHA D (continuity eq. 2.6 cm2 LVEF, BP 54 % (55% - 70%) VTI) LVOT PGmax 2 mmHg MV A Vmax 0.43 m/s LVOT PGmean 1 mmHg MV E' lateral 0.07 m/s LVOT Vmax 0.73 m/s (0.7m/s - 1.1m/s) MV E' mean 0.06 m/s LVOT Vmean 0.48 m/s MV E' septal 0.04 m/s LVOTd 2.1 cm (1.9cm - 2.1cm) MV E Vmax 1.04 m/s LVPWd, 2D 0.9 cm (0.6cm - 1cm) MV E/A 2.42 RVDd, 2D 4.7 cm (1.9cm - 3.8cm) MV E/E' lateral 15.5 LA Volume, BP 88 ml (18ml - 58ml) MV E/E' mean 18.91 LADs, 2D 4.3 cm (3cm - 4cm) MV E/E' septal 23.2 (0.45 - 1.25) LAESV index, BP 41.1 ml/m2 TV/PV Additional Vessels Label Value Normal Value Label Value Normal Value PV PGmax 2 mmHg AoRoot, MM 3.3 cm (2.2cm - 3.7cm) PV Vmax, Caliper 0.73 m/s (0.6m/s - 0.9m/s) Patient: ARGENTINA WASHINGTON Study Date: 11/04/2018 Page 1 of 2 08:07 AM Conclusions Overall Conclusions: No pericardial effusion. Preserved LV systolic function with ejection fraction between 55 and 60%. Mild mitral regurgitation. Findings Left Ventricle: Left ventricle is normal in size. Low normal left ventricular systolic function. The EF is visually estimated to be 55 %. EF range is estimated at 55 % - 60 %. Left ventricle wall thickness is normal. There are no regional wall motion abnormalities. Cannot determine LAP and Diastolic Dysfunction Grade. Right Ventricle: Upper normal size right ventricle. The RV function appears grossly normal. Left Atrium: The left atrium is mildly dilated. Right Atrium: The right atrium size is at the upper limits of normal. Mitral Valve: Mitral valve appears structurally normal. Mild mitral regurgitation. No mitral valve stenosis. Aortic Valve: Aortic leaflets are normal in appearance and function. No aortic valve regurgitation. There is no aortic stenosis. Tricuspid Valve: Tricuspid valve leaflets are normal in appearance and function. No tricuspid regurgitation. Pulmonic Valve: Pulmonic leaflets are normal in appearance and function. No pulmonic valve regurgitation is evident. Aorta: The aorta is normal. The aortic root size in M-mode measures 3.3 cm. Aorta Measurements AoRoot, MM is 3.3 cm. Pericardium: No pericardial effusion. Exam Details Procedure Ordered: Echo Procedure Status: Routine study Image Quality: Adequate Facility Location: Cardiac Echo 1 (No Signature Object) Patient: ARGENTINA WASHINGTON Study Date: 11/04/2018 Page 2 of 2 08:07 AM [id number]
--- NOTE | 2018-11-04 11:19 | ASMTCMCOM ---
CM Note CM Note Notes: Pts case discussed in tx rounds. Pt is a 67 y/o man admitted for dyspnea. CM spoke to TEA Nolasco and she has cleared pt to d/c without any needs. CM available for changes. Plan: Independent Date Signed: 11/04/2018 11:16 AM Electronically Signed By:SHMUEL Beltran
--- NOTE | 2018-11-04 12:39 | HOSPPROG ---
Hospitalist Progress Note Assessment/Plan: 67yo M with CAD s/p CABG (2017), pAF, ESRD on HD here with shortness of breath. #Dyspnea: Multifactorial from fluid overload and possible pneumonia. He is not hypoxic. Mgmt per below. #Multifocal pneumonia: Reviewed CT showing b/l lower infiltrates. Resp viral PCR negative. At risk for MDR organisms but given mild illness, will treat as CAP. - Continue ceftriaxone and doxycycline (recently completed course of azithromycin) #Pulmonary edema: Due to limited fluid removal with HD - Agreeable to HD today #CAD: RCA stent in 2008, 4v CABG 12/2016 ([facility]). No angina. Trops minimally elevated and flat (in setting of volume overload). TTE with preserved LVEF and no WMA. Of significant note, he has stopped his aspirin and statin >11 months ago as he wants to take ibuprofen. He is agreeable to starting these if we can control his pain otherwise. - Restart aspirin 81mg, lipitor 40mg daily (not on plavix per last cardiology note) and carvedilol 3.125mg BID - He is adamant about seeing cardiology while here, I have discussed with Marino Viramontes who will see #pAF: Sinus here. Previously on anticoagulation but stopped. [id number] score at least 3. - He is hesitant to restart . Will d/w cards #ESRD: Renal consulted, HD today. Continue phos binders. #Chronic pain: Related to osteoarthritis. - Tramadol and tylenol PRN #HTN: Elevated. Resumed home lisinopril, restarted coreg as above. #COPD: No flare currently. Neb PRN. #Mediastinal and hilar lymphadenopathy: Noted on CT. Repeat CT in 1-2 months. VTE ppx: SQH Code: full Dispo: Switch to inpatient, possibly dc tomorrow pending clinical improvement Subjective: Agreeable to HD today. Still feeling short of breath, especially when lying flat. Mostly dry cough. No fevers. Not hypoxic. Objective: Vital Signs Temp Pulse Resp BP Pulse Ox 36.7 C 85 16 172/85 H 90 L 11/04/18 07:44 11/04/18 08:55 11/04/18 07:44 11/04/18 07:44 11/04/18 08:55 Microbiology 11/03/18 18:00 Respiratory Panel (PCR) - Final Nasal, Sinus - Swab No Organism Detected By Pcr Laboratory Results 11/04/18 08:00 11/04/18 08:00 11/03/18 11/04/18 11/05/18 05:59 05:59 05:59 Intake Total 400 Balance 400 - Physical Exam Constitutional: no apparent distress Eyes: PERRL, anicteric sclera Ears, Nose, Mouth, Throat: moist mucous membranes Cardiovascular: regular rate and rhythym, systolic murmur, edema Respiratory: no respiratory distress, reduced air movement, rhonchi (bases) Gastrointestinal: normoactive bowel sounds, soft, non-tender abdomen, no palpable masses Genitourinary: no bladder fullness, no bladder tenderness, no renal bruits Skin: no rashes or abrasions, no fluctuance, no induration Musculoskeletal: other (LUE AV fistula ) Neurologic: AAOx3 Psychiatric: interacting appropriately ICD10 Worksheet Patient Problems: Problems Problem Status Onset Pneumonia Acute Acute blood loss anemia Acute Chest pain Acute Chronic Disease Mgmt/Transitional Care Acute Elevated troponin Acute End stage renal disease Acute Postoperative atrial fibrillation Acute S/P CABG x 4 Acute Anemia in chronic kidney disease (CKD) Chronic CAD, multiple vessel Chronic
--- NOTE | 2018-11-04 15:49 | PDMN ---
Medical Necessity Medical necessity: MCG: M325 renal failure, chronic with CAD s/p CABG ( 2017 ) pAF, ESRD req HD, SOB, cough, HANSEN, N/V/ dry heaves with decreased appetite , status changed to INPT 11/03/18 for ongoing med nec care > 2 MN - pt will have HD today, further monitoring. of above
[2018-11-04] MEDS: LISINOPRIL 2.5 MG TAB PO SCH (16:41)
[2018-11-04] MEDS: IBUPROFEN 200 MG TAB PO PRN (16:43)
[2018-11-04] MEDS: CARVEDILOL 3.125 MG TAB PO SCH (17:38)
--- NOTE | 2018-11-04 18:19 | GCON ---
[f rep st] CONSULTATION CARDIOLOGY CONSULTATION REFERRING PHYSICIAN: Rene Stevens MD REASON FOR CARDIOLOGY CONSULTATION: Mildly elevated troponin, known history of CAD. HISTORY OF PRESENT ILLNESS: The patient is a 67-year-old male who is known to our practice. He was last seen by Dr. Robin in July of 2017. He has significant past history that includes CAD with previous PCI of the RCA in 2008 , CABG x4 vessels in 2017 (COY to the LAD, SVG to OM1, SVG sequential to PDA and PLR), postoperative paroxysmal atrial fibrillation, hypertension, hyperlipidemia, and end-stage renal disease for which he currently gets hemodialysis 3 times a week. Patient reporting he has been noticing ongoing shortness of breath since July. He feels that over the last 10 days, this has worsened. He reports no fevers or chills, but does report a severe cough for approximately 3 weeks. He denies of any chest pain, pressure. Patient states that he has had really no significant weight gain. With his worsening symptoms, he came to the emergency department for further evaluation. He reports previous history of pneumonia 2 weeks ago. Chest x-ray done in the ED did note central vascular congestion with right greater than left pleural effusion. Electrocardiogram showing sinus rhythm, with a significant first-degree AV block, left axis deviation, Q-waves noted in V1 and V2, suggesting old anterior septal infarction with nonspecific T-wave abnormalities in lateral leads. A CT-A of his chest with done, which shows findings are more compatible with multifocal pneumonia greater in the right lobe with moderate right and small left pleural effusion. Superimposed pulmonary edema or malignancy cannot radiographically be excluded. Extensive mediastinal, hilar lymphadenopathy with no evidence of pulmonary embolism. Ultrasound of the lower extremities did not note any signs of DVT. Echocardiogram was also done which noted normal LV systolic function with low normal LVEF estimated to be 55%. No regional wall motion abnormalities. RV was noted to be upper size of normal with grossly normal function. LA was mildly dilated. RA was upper limits of normal. Mild MR, no TR. Normal root size at 3.3, cm. He has been started on antibiotic therapy, and is currently going on dialysis as I am examining him. He reports he is feeling better than when he came in. He does admit that he quit taking all of his cardiac medications (aspirin, carvedilol, Eliquis, and atorvastatin) 11 months ago, due to the fact that he was told that he should not be taking ibuprofen, for pain control for osteoarthritis, when on these medications. PAST MEDICAL HISTORY: Includes CAD, COPD, end-stage renal disease, secondary to polycystic kidney disease, hypertension, and atrial fibrillation. PAST SURGICAL HISTORY: Includes right total hip arthroplasty, previous stent implantation in 2008, CABG x4 vessels (COY to the LAD, SVG to OM1, SVG sequential to PDA and PLR), atrial clipping with ligation of the left atrial appendage in December of 2016. FAMILY HISTORY: Reviewed, noncontributory. SOCIAL HISTORY: He is a previous smoker for over 50 years. He has quit since his bypass surgery. He occasionally uses marijuana. He does not drink any alcohol. He lives with his . ALLERGIES: No known drug allergies. HOME MEDICATIONS: Include EMLA cream every Wednesday, Wednesday, and Wednesday; MiraLax 17 g p.o. daily p.r.n.; lanthanum carbonate 1000 mg p.o. t.i.d.; ibuprofen 800 mg p.o. b.i.d. p.r.n.; Hydromet syrup 5 mg p.o. q.4 to 6 hours p.r.n.; and lisinopril 2.5 mg p.o. daily. REVIEW OF SYSTEMS: A 10-point review of systems done on patient, all negative, except as mentioned above. PHYSICAL EXAMINATION: GENERAL: Mild size, moderate stature, mildly overweight male. He is alert and oriented to person, place, time, and situation , appears to be under no acute distress. VITAL SIGNS: Current: Blood pressure of 172/85, heart rate of 73, sinus rhythm on the monitor, respirations are 16, saturating 97% on room air, temperature 36.7 degrees Celsius. HEENT: Head is normocephalic. Lips and tongue are pink and moist with no signs of cyanosis. Conjunctivae pink. NECK: Trachea is midline, +2 carotid pulses bilateral. No auscultated bruits, jugular vein elevation of 4 to 5 cm above sternal notch at 45 degree angle. LUNGS: Clear to auscultation. No rhonchi, rales or wheezes noted. No accessory muscle use. No intercostal muscle retraction noted. CARDIAC: Regular rate, regular rhythm, S1, S2. No S3, S4, gallops, rubs, or murmurs noted. ABDOMEN: Soft, nontender. Bowel sounds x4 quadrants. No organomegaly. No palpable masses. SKIN: [place], warm, dry. EXTREMITIES: +2 peripheral edema bilateral lower extremities to thighs, +1 peripheral edema both upper arms. VASCULAR: +2 carotids bilateral, +2 radials bilateral. AV fistula left arm currently being used for dialysis. +1 post tibial pulses bilateral. LABORATORY STUDIES: Drawn today showing WBC of 3.35, hemoglobin 8.7, hematocrit 27.9, platelet count 128. Sodium 132, potassium 4.5, chloride 96, CO2 26, BUN 27, creatinine 5.7, glucose 97, calcium 7.6, phosphorus 3.6, albumin 3.4. TSH 2.190. Admission troponin was 0.07. Admission proBNP of 47, 400. Patient has had 2 other troponin levels drawn since admission initial 0.065 and this morning at 0.067. STUDIES: Electrocardiogram as mentioned above. Chest CT as mentioned above. Lower extremity ultrasound as mentioned above. Chest x-ray as mentioned above. Echocardiogram done on admission noting normal LV size with low normal LV systolic function, EF of 55%, with no wall motion abnormalities. RV was upper size of normal with normal RV function. LA is mildly dilated. RA is upper limits of normal. Mild MR. Aortic root measuring at 3.3 cm. Most recent MPI study was done July 27, 2017, showing no significant reversible deficit suggesting of ischemia and no significant fixed deficit diagnostic of infarction. ASSESSMENT AND PLAN: 1. Dyspnea: Multifactorial, potentially from fluid overload, and possible pneumonia. Patient is currently on hemodialysis (followed by Nephrology), he is being treated with antibiotic therapy by hospitalist services. 2. Coronary artery disease: Patient with previous history of coronary artery disease with previous coronary artery bypass graft in 2017. He reports ongoing shortness of breath, which has improved with antibiotic therapy. He has noted significant elevated BNP and he is currently being dialyzed. He denies of any chest pressure or pain. He is noted to have indeterminate troponin levels ( potentially due to fluid status and pneumonia) and echocardiogram showing normal LV systolic function. Patient has discontinued all cardiac medications due to fear of adverse reaction with ibuprofen, feeling that his pain management was more important. We have had discussion today about resuming his cardiac medications, and the potential once that should not be taken with ibuprofen. He is agreeable to restart his aspirin. With his indeterminate troponins, I have recommended also him resuming his carvedilol dosage, and he will restart atorvastatin for secondary risk prevention. I would like to get a fasting lipid panel for baseline for tomorrow lab and repeat troponin level to insure no elevation. We did discuss potentially him consider repeat stress testing due to his shortness of breath, indeterminate troponin levels, and significant cardiac history. He declined. He would prefer medical management at this time. 3. History of paroxysmal atrial fibrillation, postoperatively bypass surgery: Reviewing the records, he only had 1 event status post coronary artery bypass graft. He discontinued his Eliquis 11 months ago, reporting he does not want to be on it, he does have a CHADS-VASc score of 3. During his bypass surgery, he did have left atrial appendage clipping done. At this time, he remains in sinus rhythm. We have discussed the potential risk of being off anticoagulation. He verbalizes understanding and continues to decline any anticoagulation. Will continue him on monitoring, beta-radha as mentioned above. He will remain on aspirin. 4. End-stage renal disease: He is currently on dialysis. He is being followed by Nephrology. 5. Hypertension. Elevated today, he has been resumed on home dose of lisinopril. He has been restarted on carvedilol. He has hydralazine ordered p.r.n. He is currently being dialyzed. 6. Chronic obstructive pulmonary disease: He is getting neb treatments p.r.n. as ordered by hospitalist services. He has been encourage good pulmonary toilet. Thank you for this consultation. We will be glad to follow along with you. /[id number]/MODL MTDD
[2018-11-05] MEDS: HEPARIN 5,000 UNIT/0.5 ML INJ SC SCH (06:34)
[2018-11-05 08:39] VITALS: BP 143/75
[2018-11-05] MEDS: DOXYCYCLINE HYCLATE 100 MG CAP/TAB PO SCH (08:40)
[2018-11-05] MEDS: LANTHANUM CARBONATE 1000 MG PO SCH ×2 (08:40→13:12)
[2018-11-05] MEDS: CARVEDILOL 3.125 MG TAB PO SCH (08:41)
[2018-11-05] MEDS: LISINOPRIL 2.5 MG TAB PO SCH (08:41)
[2018-11-05] MEDS: IBUPROFEN 200 MG TAB PO PRN (08:47)
[2018-11-05] MEDS ORDERED: ATORVASTATIN CALCIUM 40 MG TAB PO SCH (09:00)
[2018-11-05] MEDS ORDERED: ASPIRIN 81 MG CHEWABLE TAB PO SCH (09:00)
--- NOTE | 2018-11-05 11:43 | PDDCSUM ---
Discharge Summary Discharge Summary: Date of Admission: 11/03/2018 Date of Discharge: 11/05/2018 Consultants: cardiology, nephrology Procedures: hemodialysis x1 Studies: CTA chest, TTE Discharge Diagnoses: 1. Dyspnea 2. Multifocal community acquired pneumonia 3. Pulmonary edema 4. ESRD on HD 5. CAD s/p CABG 6. Mildly elevated troponin 7. Paroxysmal atrial fibrillation not on anticoagulation 8. Chronic pain not on opioids 9. HTN 10. COPD 11. Mediastinal and hilar lymphadenopathy Brief Hospital Course: 67yo M with CAD s/p CABG (2017), pAF, ESRD on HD here with shortness of breath. He was not hypoxic. CTA chest negative for PE but did show bilateral lower lobe infiltrates. Respiratory viral PCR negative. He was treated for multifocal pneumonia with IV antibiotics. He also underwent a session of hemodialysis and clinically improved. He was discharged to complete a course of antibiotics for community acquired pneumonia. He did not require oxygen at discharge. He is to resume his routine dialysis schedule. Of note, he has a history of CAD s/p RCA stent in 2008 and 4v CABG in 2016. He has stopped taking all of his cardiac medications except for lisinopril 11 months ago. He reports doing this because he wanted to take ibuprofen to treat his chronic arthritic pain. He was agreeable to restarting aspirin, statin, and his beta radha. He did not want to restart his eliquis ([id number]) for stroke prophylaxis. He understands the risks of not being anticoagulated. He was in sinus rhythm here and does have a history of left atrial appendage clipping. Medications: Please refer to EMR for complete list. I wrote prescriptions for carvedilol 3.125mg BID, atorvastatin 40mg daily, augmentin 250mg daily x5 days, doxycycline 100mg BID x5 days. Follow Up Plan: 1. Resume routine HD on MWF schedule 2. Needs repeat chest CT in 1-2 months to monitor mediastinal and hilar adenopathy Physical Exam: Vitals reviewed, afebrile. Alert and oriented, rrr, lungs with mildly diminished breath sounds at bases and no wheezes, abdomen soft and nt, no leg edema, LUE AV fistula with good thrill.
--- NOTE | 2018-11-05 11:50 | PDCARPN ---
Cardiology Progress Note Chief Complaint: He reports shortness of breath has improved Assessment/Plan: Assessment: 67-year-old male with significant history that includes CAD with previous PCI of the RCA in 2008, CABG x4 vessels (COY to the LAD, SVG to OM1, SVG sequential to PDA and PL are) and atrial clipping with ligation of left atrial appendage 12/2016, paroxysmal atrial fibrillation (postoperative CABG) 12/2016, hypertension, hyperlipidemia, and end-stage renal disease (hemodialysis 3 days a week). Admitted 11/03/2018 for SOB, denying chest pressure, pain, or symptoms suggesting of ischemia.. CTA of chest showing bilateral lower lobe infiltrates suggesting pneumonia. Elevated BNP on admission of 47,400, initial troponin 0.07. Indeterminate troponin elevation peaking at 0.067. Echo 11/03/2018 noting normal LV size with low normal LV systolic function, EF of 55%, no wall motion abnormalities, RV upper size of normal with normal RV function, LA is mildly dilated, RA is upper limits of normal, mild MR. Most recent MPI study showing no significant reversible deficit suggesting of ischemia, no significant fixed deficit diagnostic of infarction. Patient stating he has self discontinued his cardiac medications over 11 months ago (aspirin, carvedilol, atorvastatin, or Eliquis), due to not being able to take ibuprofen for pain management on them. He has been started on antibiotic therapy, and underwent hemodialysis yesterday. 11/05/2018: He reports no chest pain, pressure, or symptoms suggesting of ischemia. He reports his shortness of breath has improved. Repeated troponin done this morning showing decreased down to 0.062. Continues cardiac monitoring showing sinus rhythm with no malignant arrhythmias or pauses. Fasting lipid panel office statin therapy done this morning showing triglycerides 116, total cholesterol 130, HDL 36, LDL 71. Plan: 1. Dyspnea: Multifactorial, probable from fluid overload and pneumonia. 2. Pneumonia: Started on antibiotic therapy, defer to hospitalist for management. 3. Fluid overload: Improved since hemodialysis. Being followed by Nephrology. 4. CAD: Reports no chest pain, pressure, or symptoms suggesting of ischemia. Echocardiogram done showing no wall motion abnormalities. Indeterminate troponin level bump, no acute changes on electrocardiogram. Troponin trending downward. Patient is in agreement and has resumed anti-platelet therapy of aspirin, beta-radha of carvedilol, in statin therapy of atorvastatin. He declines stress testing at this time, but would consider doing at a future date. Will plan for him to be seen in the office in the next 7-10 days, arrange for outpatient [facility] MPI. 5. Paroxysmal atrial fibrillation: Medical records urged shows only 1 episode postoperative CABG. Currently in sinus rhythm. Has resumed carvedilol as mentioned above. Does have a chads Vasc score of 3, noted to have left atrial appendage clipping during surgery. We have discussed his risk of thrombotic event, he verbalizes understanding, and declines anticoagulation therapy. He does state if he has a another episode of atrial fibrillation, he would reconsider. We will consider placing him on a 30 day monitor in outpatient setting, for evaluation of AFib burden. 6. Hypertension: Blood pressure better controlled post hemodialysis and continuation of home medication of lisinopril and carvedilol. No changes at this time. 7. End-stage renal disease: Fluid overload upon admission, with elevated BNP. Patient has been noted in the past to stop his dialysis runs early. Ultimately improved today after hemodialysis yesterday. Defer treatment to Nephrology. 8. COPD: Home nebs have been ordered. Maintaining SpO2 greater than 90% on room air. Potentially patient will be discharged today, I will have our office contact to Wednesday, to have him be scheduled for a follow-up appointment in the next 7-10 days. 11/05/18 11:48 Subjective: He denies of any chest pressure, pain, lightheadedness, palpitations, near- syncope or syncopal events. Reports SOB has significantly improved. Reviewed/Discussed With: hospitalist (Dr. Stevens), other (Dr. Peters) Objective: Vital Signs (8 Hrs) Temp Pulse Resp BP Pulse Ox 11/05/18 08:00 36.9 C 77 20 143/75 H 97 11/05/18 04:00 64 Intake/Output (24 Hrs) 11/04/18 11/05/18 11/06/18 05:59 05:59 05:59 Intake Total 1075 Balance 1075 Intake: Oral (ml) 975 IV Infused (ml) 100 cefTRIAXone 1 GM/DEXTROSE 100 50 ml @ 100 mls/hr IV DAILY MARYBEL Rx#:[id number] Result Diagrams: 11/05/18 07:53 11/05/18 07:53 Cardiac Labs: Cardiac Lab Results (72 Hrs) 11/05/18 07:53 Troponin I 0.062 H - Physical Exam Constitutional: WDWN Ears, Nose, Mouth, Throat: moist mucous membranes Cardiovascular: regular rate and rhythm, jugular vein distention (4-5 cm above sternal), pulses symmetric bilat, No carotid bruit Peripheral Pulses: 1+: dorsalis-pedis (R), dorsalis-pedis (L), 2+: carotid (R), carotid (L) Respiratory: clear to auscultate bilat, no crackles, no wheezes Gastrointestinal: normoactive bowel sounds, no tenderness, no masses Skin: warm, other (Av fistula left forearm, for dialysis, positive bruit), No no edema (+1 to 2 peripheral edema bilateral lower extremities) Neurologic: AAOx3 Psychiatric: cooperative, interactive, following commands ICD10 Worksheet Patient Problems: Problems Problem Status Onset Pneumonia Acute Chronic Disease Mgmt/Transitional Care Acute Postoperative atrial fibrillation Acute Anemia in chronic kidney disease (CKD) Chronic Acute blood loss anemia Acute S/P CABG x 4 Acute CAD, multiple vessel Chronic Chest pain Acute End stage renal disease Acute Elevated troponin Acute
--- NOTE | 2018-11-05 12:31 | ASMTDCNOTE ---
Case Management Discharge Discharge Order Complete? Answers: Yes Patient to Obtain Answers: Independently Medications Transportation Arranged Answers: Family/Friends Family Notified Answers: Yes Discharge Comments Notes: Medically cleared for independent discharge. CM available should needs arise. Date Signed: 11/05/2018 12:31 PM Electronically Signed By:Muriel Keith RN
--- NOTE | 2018-11-05 13:32 | SOAPPROG ---
SOAP Progress Note Assessment/Plan: Assessment: ESRD on TIW HD volume overload, better after HD yesterday pneumonia, finished Z-Pack as outpatient HTN, likely contributed to by volume Anemia of CKD short of breath Plan: HD yesterday went fine have given him time to place his EMLA cream continue Abx, Rocephin and Doxy echocardiogram completed 11/04/18 09:07 11/05/18 13:29 Subjective: Feels the best today that he has in 4 weeks no cp sob nausea or vomiting spirits good slept well last night appetite good energy improved, still gets fatigued easily took a couple of laps around the hospital today Objective: Vital Signs Temp Pulse Resp BP Pulse Ox 36.9 C 79 18 143/75 H 97 11/05/18 08:00 11/05/18 12:00 11/05/18 12:00 11/05/18 08:00 11/05/18 08:00 Laboratory Results 11/05/18 07:53 11/05/18 07:53 11/04/18 11/05/18 11/06/18 05:59 05:59 05:59 Intake Total 1075 Balance 1075 Physical Exam - Physical Exam General Appearance: alert Neck: normal inspection Respiratory: No rales, No rhonchi, No wheezing Cardiac/Chest: regular rate, rhythm, edema, systolic murmur Abdomen: normal bowel sounds, non-tender, soft Skin: warm/dry Extremities: other (AVF good bruit and thrill) Neuro/Psych: alert, normal mood/affect, oriented x 3 ICD10 Worksheet Patient Problems: Problems Problem Status Onset Pneumonia Acute Acute blood loss anemia Acute Chest pain Acute Chronic Disease Mgmt/Transitional Care Acute Elevated troponin Acute End stage renal disease Acute Postoperative atrial fibrillation Acute S/P CABG x 4 Acute Anemia in chronic kidney disease (CKD) Chronic CAD, multiple vessel Chronic
== END 2018-11-05 14:02 | disposition home or self-care (01) | DRG 193 ==
LOC: F2W 17:35 → OBSVTOIN 11-04 13:01
PROVIDERS: ADMIT Internal Medicine; ATTEND Internal Medicine
PROC: 5A1D70Z Performance of Urinary Filtration, Intermittent, Less than 6 Hours Per Day (ICD-10-PCS; principal; 2018-11-04)
DX: J18.9 Pneumonia, unspecified organism (principal); N18.6 End stage renal disease; Q61.2 Polycystic kidney, adult type; I10 Essential (primary) hypertension; R59.9 Enlarged lymph nodes, unspecified; G89.29 Other chronic pain; J44.9 Chronic obstructive pulmonary disease, unspecified; I25.10 Atherosclerotic heart disease of native coronary artery without angina pectoris; Z95.1 Presence of aortocoronary bypass graft; Z96.641 Presence of right artificial hip joint; Z87.891 Personal history of nicotine dependence; Z79.01 Long term (current) use of anticoagulants; Z99.2 Dependence on renal dialysis
CPT/HCPCS: 84484-ER; 96365; 97116-GP; 97161-GP; 97166-GO; G0378; J0456; J0696; J1644; J1956; Q9967